=== PATIENT | male | born 1950 | race Caucasian/White ===

== ENCOUNTER 2017-08-20 13:37 | Observation (INO) | payer OTHER ==
--- OUTSIDE RECORDS SUMMARY | 2017-08-20 13:39 | XMS REPORT | Clinical Summary ---
:1950 Author Organization [facility] Address [address] [place] [id number] Care Team Providers Name Role Phone James Chow MD Primary Care Provider Unavailable Allergies No Known Allergies Current Medications Prescription Sig. Disp. Refills Start Date End Date Status dexlansoprazole (DEXILANT) Take 60 mg by Active 60 mg capsule mouth daily. HYDROcodone-acetaminophen Take 2 tablets by Active (NORCO 10-325) 10-325 mg mouth 4 (four) per tablet times a day. acetaminophen (TYLENOL) Take 500 mg by Active 500 MG tablet mouth daily as needed for mild pain. aspirin 325 MG tablet Take 325 mg by Active mouth daily as needed (pain). Active Problems Problem Noted Date Chest pain in adult 09/14/2015 Chest pain 09/14/2015 Social History Tobacco Use Types Packs/Day Years Used Date Heavy Tobacco Smoker Cigarettes 2 Alcohol Use Drinks/Week oz/Week Comments Yes 42 Cans of beer 25.2 pt states he drinks a 6 pack of beer a day Sex Assigned at Date Recorded Not on file Last Filed Vital Signs Not on file Plan of Treatment Health Maintenance Due Date Last Done Comments COLON CANCER SCREENING 1999 SHINGRIX VACCINE (#1) 1999 ZOSTER VACCINE 2009 PNEUMOCOCCAL POLYSACCHARIDE VACCINE AGE 65 AND OVER 2014 PNEUMOCOCCAL-13 2014 INFLUENZA VACCINE 10/17/2017 Implants Implanted Type Area Liquefier Device Expiration Model / Identifier Date Serial / Lot System Reveal Linq W/Monitors - [id number] - [id number] Cardiovascular Left: MED[employer] 07/30/2016 LINQSYS / Implanted: Qty: 1 on 09/22/2015 by Miley Gonsalez Jr., MD Implants Chest CARDIAC RHYTHM [id number] / Wall DISEASE MGMT Results Not on fileafter 08/19/2016 Insurance Payer Benefit Plan / Group Subscriber ID Type Phone Address [employer] O xxxxxxxx HMO MCR ADV MEDICARE MEDICARE PART A AND B xxxxxxxxxx Medicare [place], [place] Home: [address] [phone] [address]
[2017-08-20] MEDS ORDERED: PANTOPRAZOLE 40 MG INJ ONE (14:40)
[2017-08-20 14:41] LABS: Absolute Lymphocytes (CBC) 1.3 K/uL (0.7-4.9); Absolute Monocytes 0.8 K/uL (0.1-1.3); Absolute Neutrophil 8.8 K/uL (1.8-8.0); Basophils % 1.1 % (0-1.3); Eosinophils % 1.4 % (0-4.4); Lymphocytes % 11.3 % (15.3-44.8); MCH 30.6 pg (27.0-35.0); MCV 93.6 fL (80-100); MPV 9.1 fL (7.6-11.3); Monocytes % 7.5 % (3.3-12.3); RBC Red Blood Cell Count 3.95 M/uL (4.33-5.43)
[2017-08-20] MEDS ORDERED: NA CHLORIDE 0.9% 1,000 ML ONE (14:41)
--- NOTE | 2017-08-20 14:42 | RAD REPORT ---
EXAM DESCRIPTION: RAD - Chest Single View - 08/20/2017 2:38 pm CLINICAL HISTORY: Chest pain. COMPARISON: 10/29/2016 FINDINGS: Portable technique limits examination quality. The lungs are grossly clear. The heart is normal in size. No displaced fractures.Sternotomy wires not ed. IMPRESSION: No acute intrathoracic process suspected.
[2017-08-20 14:46] LABS: Protime INR 0.99
[2017-08-20 14:57] LABS: Potassium 3.8 mEq/L (3.6-5.0)
[2017-08-20 15:03] LABS: Albumin 3.5 g/dL (3.2-5.5); Bilirubin Direct 0.1 mg/dL (0-0.2); Bilirubin Total 0.4 mg/dL (0.3-1.2); Magnesium 1.5 mg/dL (1.8-2.5); Protein, Total 6.8 g/dL (6.0-8.3)
[2017-08-20 15:06] LABS: CKMB Creatine Kinase MB 3.2 ng/ml (0.3-4.0)
--- NOTE | 2017-08-20 15:38 | ER ---
Nurse's Notes [facility] Name: Bravo Lockett Age: 67 yrs Sex: Male : 1950 Arrival Date: 08/20/2017 Time: 13:51 Bed 26 Private MD: James Chow E Diagnosis: Abdominal tenderness;Gastrointestinal hemorrhage, unspecified;Hypomagnesemia Presentation: 08/20 13:52 Presenting complaint: EMS states: initial complaint was for chest pain, was ambulatory tl3 at scene when getting into the ambulance pain to chest was aggravated by seat belt, but greatest source of pain was in abdomen, black tarry stools for two weeks. Transition of care: patient was not received from another setting of care. Onset of symptoms was August 20, 2017. Risk Assessment: Do you want to hurt yourself or someone else? Patient reports no desire to harm self or others. Initial Sepsis Screen: Does the patient meet any 2 criteria? No. Patient's initial sepsis screen is negative. Does the patient have a suspected source of infection? No. Patient's initial sepsis screen is negative. Care prior to arrival: IV initiated. 20 GA, in the right antecubital area. 13:52 Method Of Arrival: EMS: [facility] tl3 13:52 Acuity: AURELIO 3 tl3 Historical: - Allergies: 13:56 NKDA; tl3 - Home Meds: 18:48 [place] 10-325 mg Oral tab [Active]; baclofen 10 mg Oral tab [Active]; tl3 losartan-hydrochlorothiazide 50-12.5 mg oral tab [Active]; meclizine 12.5 mg Oral tab [Active]; pantoprazole 40 mg oral TbEC [Active]; - PMHx: 18:48 CAD; COPD; Diverticulitis; GERD; Hypomagnesemia; Myocardial infarction; Hypertension; tl3 Vertigo; - Immunization history:: Adult Immunizations up to date. - Family history:: not pertinent. - Social history:: Smoking status: Patient uses tobacco products, smokes two packs cigarettes per day. - Ebola Screening: : Patient denies travel to an Ebola-affected area in the 21 days before illness onset. Screenin:15 Abuse screen: Denies threats or abuse. Nutritional screening: No deficits noted. tl3 Tuberculosis screening: No symptoms or risk factors identified. Fall Risk None identified. Assessment: 14:15 General: Appears uncomfortable, slender, well groomed, well developed, well nourished, tl3 Behavior is calm, cooperative, appropriate for age. Pain: Complains of pain in left lower quadrant and right lower quadrant and left upper quadrant and right upper quadrant. Neuro: Level of Consciousness is awake, alert, obeys commands. Cardiovascular: Reports chest pain, since today, reproducible. Respiratory: Airway is patent Respiratory effort is even, unlabored, Respiratory pattern is regular, symmetrical. GI: Abdomen is flat, Abdomen is tender to palpation Abd is rigid Guarding noted. : No signs and/or symptoms were reported regarding the genitourinary system. EENT: No signs and/or symptoms were reported regarding the EENT system. Derm: No signs and/or symptoms reported regarding the dermatologic system. Musculoskeletal: No signs and/or symptoms reported regarding the musculoskeletal system. 14:49 Reassessment: Patient appears in no apparent distress at this time. No changes from tl3 previously documented assessment. Patient and/or family updated on plan of care and expected duration. Pain level reassessed. Patient is alert, oriented x 3, equal unlabored respirations, skin warm/dry/pink. pt completed contrast, CT notified. 15:49 Reassessment: Patient appears in no apparent distress at this time. No changes from tl3 previously documented assessment. Patient and/or family updated on plan of care and expected duration. Pain level reassessed. Patient is alert, oriented x 3, equal unlabored respirations, skin warm/dry/pink. 17:55 Reassessment: Patient appears in no apparent distress at this time. No changes from tl3 previously documented assessment. Patient and/or family updated on plan of care and expected duration. Pain level reassessed. Patient is alert, oriented x 3, equal unlabored respirations, skin warm/dry/pink. 18:38 Reassessment: Patient appears in no apparent distress at this time. No changes from tl3 previously documented assessment. Patient and/or family updated on plan of care and expected duration. Pain level reassessed. Patient is alert, oriented x 3, equal unlabored respirations, skin warm/dry/pink. Dr Zacarias at bedside discussing POC with Pt. 18:39 GI: Bowel sounds. tl3 19:32 Reassessment: Patient appears in no apparent distress at this time. No changes from tl3 previously documented assessment. Patient and/or family updated on plan of care and expected duration. Pain level reassessed. Patient is alert, oriented x 3, equal unlabored respirations, skin warm/dry/pink. Vital Signs: 13:56 BP 128 / 104; Pulse 74; Resp 20; Pulse Ox 99% on R/A; tl3 14:15 BP 111 / 67; Pulse 75; Resp 20; Pulse Ox 100% ; tl3 14:49 BP 154 / 85; Pulse 58; Resp 18; Temp 98; Pulse Ox 100% ; tl3 15:49 BP 115 / 71; Pulse 48; Resp 16; Pulse Ox 99% ; tl3 17:55 BP 150 / 107; Pulse 63; Resp 16; Pulse Ox 100% ; tl3 18:38 BP 148 / 88; Pulse 88; Resp 16; Pulse Ox 97% ; tl3 19:32 BP 135 / 114; Pulse 58; Resp 16; Pulse Ox 100% ; tl3 ED Course: 13:51 Patient arrived in ED. tl3 13:51 James Chow MD is Private Physician. tl3 13:52 Etta Yates, NAM is Primary Nurse. tl3 13:55 Triage completed. tl3 13:58 Pedro Joseph MD is Attending Physician. rory 14:15 Patient has correct armband on for positive identification. Bed in low position. Call tl3 light in reach. Side rails up X2. monitoring and evaluation advisor on. Pulse ox on. NIBP on. 14:15 No provider procedures requiring assistance completed. Maintain EMS IV. Dressing tl3 intact. Good blood return noted. Site clean \T\ dry. Gauge \T\ site: 20g right AC. 14:22 XRAY Chest (1 view) In Process Unspecified. EDMS 14:23 X-ray completed. Portable x-ray completed in exam room. Patient tolerated procedure jb2 well. 14:42 EKG done, by electronics engineering technologist. reviewed by Pedro Joseph MD. at1 15:35 Karlene Zacarias MD is Hospitalizing Provider. rory 16:40 Patient moved to SC via wheelchair. nj 18:49 Arm band placed on. tl3 19:47 Patient admitted, IV remains in place. tl3 Administered Medications: 13:30 Drug: NS 0.9% 500 ml Route: IV; Rate: bolus; Site: left antecubital; Delivery: Primary tl3 tubing; 14:36 Follow up: IV Status: Completed infusion; IV Intake: 500ml tl3 14:36 Drug: NS 0.9% 1000 ml Route: IV; Rate: 125 ml/hr; Site: left antecubital; tl3 14:48 Drug: ProTONIX 40 mg Route: IVP; Infused Over: 2 mins; Site: right antecubital; tl3 15:51 Follow up: Response: No adverse reaction tl3 17:54 Follow up: Response: No adverse reaction tl3 15:57 Drug: Magnesium Sulfate 1 grams Route: IVPB; Infused Over: 1 hrs; Site: right tl3 antecubital; 17:54 Follow up: IV Status: Completed infusion; IV Intake: 100ml tl3 Point of Care Testing: Guaiac: 14:14 Stool Guaiac: Negative; Stool Hemoccult Control: Pass; rory Intake: 14:36 IV: 500ml; Total: 500ml. tl3 17:54 IV: 100ml; Total: 600ml. tl3 Outcome: 15:38 Decision to Hospitalize by Provider. rory 19:39 Admitted to Med/surg accompanied by tech, via wheelchair, with chart, Report called to tl3 Hilaria BROWNING 19:39 Condition: stable 19:39 Instructed on the need for admit. 19:48 Patient left the ED. tl3 Signatures: Dispatcher [employer] EDPedro Juarez MD MD cha Buechter, Jesse jb2 Lisa valentino, fire hazard inspector EKG Tat1 Colby Howell Tammy, RN RN tl3 Corrections: (The following items were deleted from the chart) 14:15 13:56 BP 128 / 104; Pulse 74bpm; Resp 20bpm; Pulse Ox 75%; tl3 tl3
--- NOTE | 2017-08-20 15:38 | EDPHYS ---
Physician Documentation [facility] Name: Bravo Lockett Age: 67 yrs Sex: Male : 1950 Arrival Date: 08/20/2017 Time: 13:51 Bed 26 Private MD: James Chow E ED Physician Pedro Joseph HPI: 08/20 14:12 This 67 yrs old Male presents to ER via EMS with complaints of Abdominal rory Problem, Bloody Stools. 14:12 The patient presents with abdominal pain. Onset: The symptoms/episode began/occurred 3 rory day(s) ago. The patient presents to the emergency department with rectal bleeding. Onset: The symptoms/episode began/occurred 3 day(s) ago. Abdominal pain: described as burning, constant, located in the right upper quadrant, left upper quadrant, right lower quadrant and left lower quadrant. Modifying factors: the symptoms are aggravated by movement, PO intake. Associated signs and symptoms: The patient has no apparent associated signs or symptoms. Historical: - Allergies: 13:56 NKDA; tl3 - Home Meds: 18:48 [place] 10-325 mg Oral tab [Active]; baclofen 10 mg Oral tab [Active]; tl3 losartan-hydrochlorothiazide 50-12.5 mg oral tab [Active]; meclizine 12.5 mg Oral tab [Active]; pantoprazole 40 mg oral TbEC [Active]; - PMHx: 18:48 CAD; COPD; Diverticulitis; GERD; Hypomagnesemia; Myocardial infarction; Hypertension; tl3 Vertigo; - Immunization history:: Adult Immunizations up to date. - Family history:: not pertinent. - Social history:: Smoking status: Patient uses tobacco products, smokes two packs cigarettes per day. - Ebola Screening: : Patient denies travel to an Ebola-affected area in the 21 days before illness onset. ROS: 14:12 Constitutional: Negative for fever, chills, and weight loss, Eyes: Negative for injury, rory pain, redness, and discharge, ENT: Negative for injury, pain, and discharge, Neck: Negative for injury, pain, and swelling, Cardiovascular: Negative for chest pain, palpitations, and edema, Respiratory: Negative for shortness of breath, cough, wheezing, and pleuritic chest pain, Back: Negative for injury and pain, : Negative for injury, bleeding, discharge, and swelling, MS/Extremity: Negative for injury and deformity, Skin: Negative for injury, rash, and discoloration, Neuro: Negative for headache, weakness, numbness, tingling, and seizure. 14:12 Abdomen/GI: Positive for abdominal pain. Exam: 14:14 Constitutional: This is a well developed, well nourished patient who is awake, alert, rory and in no acute distress. Head/Face: Normocephalic, atraumatic. Eyes: Pupils equal round and reactive to light, extra-ocular motions intact. Lids and lashes normal. Conjunctiva and sclera are non-icteric and not injected. Cornea within normal limits. Periorbital areas with no swelling, redness, or edema. ENT: Nares patent. No nasal discharge, no septal abnormalities noted. Tympanic membranes are normal and external auditory canals are clear. Oropharynx with no redness, swelling, or masses, exudates, or evidence of obstruction, uvula midline. Mucous membranes moist. Neck: Trachea midline, no thyromegaly or masses palpated, and no cervical lymphadenopathy. Supple, full range of motion without nuchal rigidity, or vertebral point tenderness. No Meningismus. Chest/axilla: Normal chest wall appearance and motion. Nontender with no deformity. No lesions are appreciated. Cardiovascular: Regular rate and rhythm with a normal S1 and S2. No gallops, murmurs, or rubs. Normal PMI, no JVD. No pulse deficits. Respiratory: Lungs have equal breath sounds bilaterally, clear to auscultation and percussion. No rales, rhonchi or wheezes noted. No increased work of breathing, no retractions or nasal flaring. Back: No spinal tenderness. No costovertebral tenderness. Full range of motion. Male : Normal genitalia with no discharge or lesions. Skin: Warm, dry with normal turgor. Normal color with no rashes, no lesions, and no evidence of cellulitis. MS/ Extremity: Pulses equal, no cyanosis. Neurovascular intact. Full, normal range of motion. Neuro: Awake and alert, GCS 15, oriented to person, place, time, and situation. Cranial nerves II-XII grossly intact. Motor strength 5/5 in all extremities. Sensory grossly intact. Cerebellar exam normal. Normal gait. Psych: Awake, alert, with orientation to person, place and time. Behavior, mood, and affect are within normal limits. Vital Signs: 13:56 BP 128 / 104; Pulse 74; Resp 20; Pulse Ox 99% on R/A; tl3 14:15 BP 111 / 67; Pulse 75; Resp 20; Pulse Ox 100% ; tl3 14:49 BP 154 / 85; Pulse 58; Resp 18; Temp 98; Pulse Ox 100% ; tl3 15:49 BP 115 / 71; Pulse 48; Resp 16; Pulse Ox 99% ; tl3 17:55 BP 150 / 107; Pulse 63; Resp 16; Pulse Ox 100% ; tl3 18:38 BP 148 / 88; Pulse 88; Resp 16; Pulse Ox 97% ; tl3 19:32 BP 135 / 114; Pulse 58; Resp 16; Pulse Ox 100% ; tl3 MDM: 13:58 Patient medically screened. [facility] 14:28 Data reviewed: vital signs, nurses notes, lab test result(s), EKG, radiologic studies, [facility] CT scan, plain films. 08/20 14:10 Order name: Occult Blood--Ancillary 08/20 14:11 Order name: Basic Metabolic Panel; Complete Time: 15:31 [facility] 08/20 14:12 Order name: BNP; Complete Time: 15:31 [facility] 08/20 14:12 Order name: CBC with Diff; Complete Time: 15:31 [facility] 08/20 14:12 Order name: Ckmb; Complete Time: 15:31 [facility] 08/20 14:12 Order name: CPK; Complete Time: 15:31 [facility] 08/20 14:12 Order name: LFT's; Complete Time: 15:31 [facility] 08/20 14:12 Order name: Magnesium; Complete Time: 15:31 [facility] 08/20 14:12 Order name: PT-INR; Complete Time: 15:31 [facility] 08/20 14:12 Order name: Ptt, Activated; Complete Time: 15:31 [facility] 08/20 14:12 Order name: Troponin (emerg Dept Use Only); Complete Time: 15:31 [facility] 08/20 14:12 Order name: Lipase; Complete Time: 15:31 [facility] 08/20 14:12 Order name: Type And Screen [facility] 08/20 14:12 Order name: Urine Culture [facility] 08/20 14:12 Order name: XRAY Chest (1 view); Complete Time: 15:31 [facility] 08/20 14:12 Order name: EKG; Complete Time: 14:12 [facility] 08/20 14:12 Order name: Cardiac monitoring; Complete Time: 14:48 [facility] 08/20 14:12 Order name: EKG - Nurse/Tech; Complete Time: 14:48 [facility] 08/20 14:12 Order name: IV Saline Lock; Complete Time: 14:49 [facility] 08/20 14:12 Order name: Labs collected and sent; Complete Time: 14:49 [facility] 08/20 14:12 Order name: O2 Per Protocol; Complete Time: 14:49 [facility] 08/20 14:12 Order name: O2 Sat Monitoring; Complete Time: 14:49 [facility] 08/20 14:12 Order name: CT Abd/Pelvis - W/Contrast [facility] 08/20 15:52 Order name: CONS Physician Consult [facility] 08/20 17:12 Order name: CT [facility] 08/20 18:22 Order name: Urine Dipstick--Ancillary (enter results) em1 Administered Medications: 13:30 Drug: NS 0.9% 500 ml Route: IV; Rate: bolus; Site: left antecubital; Delivery: Primary tl3 tubing; 14:36 Follow up: IV Status: Completed infusion; IV Intake: 500ml tl3 14:36 Drug: NS 0.9% 1000 ml Route: IV; Rate: 125 ml/hr; Site: left antecubital; tl3 14:48 Drug: ProTONIX 40 mg Route: IVP; Infused Over: 2 mins; Site: right antecubital; tl3 15:51 Follow up: Response: No adverse reaction tl3 17:54 Follow up: Response: No adverse reaction tl3 15:57 Drug: Magnesium Sulfate 1 grams Route: IVPB; Infused Over: 1 hrs; Site: right tl3 antecubital; 17:54 Follow up: IV Status: Completed infusion; IV Intake: 100ml tl3 Point of Care Testing: Guaiac: 14:14 Stool Guaiac: Negative; Stool Hemoccult Control: Pass; [facility] Disposition: 08/20/17 15:38 Hospitalization ordered by Karlene Zacarias for Observation. Preliminary diagnosis are Abdominal tenderness, Gastrointestinal hemorrhage, unspecified, Hypomagnesemia. - Bed requested for Telemetry/MedSurg (observation). - Status is Observation. tl3 - Condition is Stable. - Problem is new. - Symptoms have improved. UTI on Admission? No Signatures: Dispatcher [employer] EDNE Pedro Joseph MD MD cha Fitzgerald, Diane RN RN df Etta Yates RN RN tl3 Corrections: (The following items were deleted from the chart) 17:57 15:38 Hospitalization Ordered by Karlene Zacarias MD for Observation. Preliminary df diagnosis is Abdominal tenderness; Gastrointestinal hemorrhage, unspecified; Hypomagnesemia. Bed requested for Telemetry/MedSurg (observation). Status is Observation. Condition is Stable. Problem is new. Symptoms have improved. UTI on Admission? No. [facility] 19:48 17:57 08/20/2017 15:38 Hospitalization Ordered by Karlene Zacarias MD for Observation. tl3 Preliminary diagnosis is Abdominal tenderness; Gastrointestinal hemorrhage, unspecified; Hypomagnesemia. Bed requested for Telemetry/MedSurg (observation). Status is Observation. Condition is Stable. Problem is new. Symptoms have improved. UTI on Admission? No. df
[2017-08-20] MEDS ORDERED: ACETAMINOPHEN 500 MG TAB PO PRN (16:30)
[2017-08-20] MEDS ORDERED: ONDANSETRON 4 MG/2 ML VIAL IV PRN (16:30)
[2017-08-20] MEDS: NA CHLORIDE 0.9% 1,000 ML IV SCH ×2 (17:00→21:34)
--- NOTE | 2017-08-20 17:01 | EKG ---
Test Date: 2017-08-20 Test Time: 14:33:06 Account Maintenance Representative: NIKI MEASUREMENT RESULTS: Intervals: Rate: 66 DC: 162 QRSD: 100 QT: 384 QTc: 402 Norman: P: 63 DC: 162 QRS: 49 T: 61 INTERPRETIVE STATEMENTS: Normal sinus rhythm Normal ECG Compared to ECG 10/29/2016 13:39:45 Sinus bradycardia no longer present Electronically Signed On 08-20-17 17:00:10 CDT by Lars Ayala
--- NOTE | 2017-08-20 17:11 | RAD REPORT ---
EXAM DESCRIPTION: CT - Abdomen Pelvis W Contrast - 08/20/2017 4:51 pm CLINICAL HISTORY: Abdominal pain COMPARISON: CT study May 2016 TECHNIQUE: Biphasic, helical CT imaging of the abdomen and pelvis was performed following 100 ml non -ionic IV contrast. Oral contrast was given. All CT scans are performed using dose optimization technique as appropriate and may include automated exposure control or mA/KV adjustment according to patient size. FINDINGS: No suspicious findings in the lung bases. No pericardial effusion. The liver, spleen, and pancreas show no suspicious findings. Gallbladder and biliary tree are also wi thout suspicious finding. Symmetric renal function is seen with no hydronephrosis or suspicious renal mass. No pyelonephritis o r acute renal parenchymal process seen. Urinary bladder is only partially filled but grossly normal. Prostate gland and seminal vesicles are within normal limits for age. Lucas of the stomach are accentuated by limited contrast volume. Significant change from the prior st udy is not suspected. No dilation of the large or small bowel. An acute GI process is not seen. Oral contrast has reached the distal rectum. No free air, free fluid or inflammatory stranding. No hernia, mass or bulky lymphadenopathy. No adre nal abnormality. Prominent disc and bony degenerative changes are present. Postsurgical change noted in the lower lumb ar spine. Bony structures are not clearly different from May 2016. Dense vascular calcifications present. Common iliac stenoses are likely present. 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 There is dense calcification at the base of this vessel. IMPRESSION: No bowel obstruction, free air or surgically emergent finding. Numerous chronic changes are detailed in the body of the report none of which are clearly different f rom prior imaging.
--- NOTE | 2017-08-20 17:41 | P.HP ---
Certification for Inpatient Patient admitted to: Observation With expected LOS: <2 Midnights Patient will require the following post-hospital care: None Practitioner: I am a practitioner with admitting privileges, knowledge of patient current condition, hospital course, and medical plan of care. Services: Services provided to patient in accordance with Admission requirements found in Title 42 Section 412.3 of the Code of Federal Regulations Patient History Date of Service: 08/20/17 Primary Care Provider: Dr Chow Reason for admission: Dark Tarry Stool History of Present Illness: This is a 59-year-old male with significant past medical history of hypertension , hyperlipidemia, GERD, CAD, chronic alcoholism and tobacco abuse who presented to the ED complaining of having some dark tarry stools for about 2 weeks. Patient stated that he also had associated syncopal episode with that. Patient stated that he has been dizzy for over past 2 years however this episode of dark tarry stool made it worse. Patient stated that he has been seen by GI in the past and had an EGD and colonoscopy done and was told that he does have chronic gastritis and possible ulcer. Patient stated that the dark tarry stools happened at least 3 times at the house and here in the ER as well. Patient has no other complaints to offer and does not remember taking any recent NSAIDs or any other blood thinners other than his home medication. Allergies No Known Allergies Allergy (Unverified 10/31/16 07:47) Home Medications: Metoprolol Tartrate [Lopressor] 50 mg PO BID* #60 tablet 11/12/15 Albuterol Sulfate [Albuterol Sulfate 0.083% Neb Soln] 1 udaer NEB BID PRN Aspirin [Aspirin EC 81 MG] 2 tab PO DAILY #60 tablet. 05/31/16 Isosorbide Mononitrate [Isosorbide Mononitrate ER] 30 mg PO DAILY #30 tab.er.24h 05/31/16 Amlodipine [Norvasc*] 5 mg PO DAILY #30 tab 07/08/16 Hydrocodone 5/APAP 325 [[place] 5/325*] 1 tab PO Q6H PRN #20 tab 07/08/16 Promethazine HCl 25 mg PO Q6HR PRN #15 tablet 07/08/16 Alprazolam [Xanax*] 1 mg PO TID PRN 08/13/17 Baclofen [Lioresal*] 10 mg PO BIDP PRN 10/29/16 Hydrocodone/Acetaminophen [Hydrocodone-Acetamin 10-325 mg] 1 each PO TID Meclizine HCl 25 mg PO TID 10/29/16 Magnesium Oxide [Mag 0X*] 400 mg PO BID #60 tab 10/31/16 Naph,Mb-Db/K pH,Mbdb [Neutra-Phos Packet] 1 each PO DAILY #30 powd.pack Pantoprazole [Protonix Tab*] 40 mg PO DAILYAC #30 tab 10/31/16 Potassium Bicarbonate/Cit AC [Potassium 25 Meq Tablet Eff] 25 meq PO BID #60 tablet.eff 10/31/16 Thiamine HCl [Vitamin B-1*] 100 mg PO DAILY #30 10/31/16 Doxycycline Monohydrate 100 mg PO BID #28 capsule 11/01/16 Smz./Tmp. [Bactrim Ds 800 MG/160 MG*] 1 tab PO BID #28 tab 11/01/16 - Past Medical/Surgical History Diabetic: No -: triple bypass -: hernia repair and partial removal of colon -: CAD -: htn -: mi -: diverticulutis -: bradycardia -: gerd -: insomnia -: hernia repair -: partial removal of colon -: triple bypass -: back surgeries 9 total (fusions ) - Family History Father -: Heart disease, Hypertension Mother -: Lung disease, Seizures - Social History Alcohol use: Yes CD- Drugs: No Caffeine use: No Review of Systems General: As per HPI Physical Examination - Physical Exam General: Alert, In no apparent distress HEENT: Atraumatic Neck: Supple, 2+ carotid pulse no bruit, No LAD, Without JVD or thyroid abnormality Respiratory: Clear to auscultation bilaterally, Normal air movement Cardiovascular: Regular rate/rhythm, Normal S1 S2 Gastrointestinal: Normal bowel sounds, Soft and benign, Non-distended, No rebound, No guarding, Tenderness (Generalized Tenderness ) Musculoskeletal: No tenderness Integumentary: No rashes Neurological: Normal speech, Normal strength at 5/5 x4 extr, Normal tone Lymphatics: No axilla or inguinal lymphadenopathy - Studies Laboratory Data (last 24 hrs) 08/20/17 14:00: PT 11.7, INR 0.99, APTT 28.4 08/20/17 14:00: WBC 11.2 H, Hgb 12.1 L, Hct 37.0 L, Plt Count 317 08/20/17 14:00: B-Natriuretic Peptide 21 08/20/17 14:00: Sodium 135, Potassium 3.8, BUN 20, Creatinine 1.34 H, Glucose 110, Magnesium 1.5 L, Total Bilirubin 0.4, AST 23, ALT 18, Alkaline Phosphatase 74, Lipase 33 Assessment and Plan - Problems (Diagnosis) (1) GI bleed Current Visit: Yes Status: Acute Plan: H/o Alcohol abuse with Dark tarry stool now. -Hgb is 12.1. H/h q6h for now -Protonix, octreotide ggt for now -GI consulted. Awaiting reccs -F/U on Lab in AM -NPO for now. Qualifiers: GI bleed type/associated pathology: gastritis Gastritis type: alcoholic Qualified Code(s): K29.21 - Alcoholic gastritis with bleeding (2) Alcohol abuse Current Visit: Yes Status: Chronic Plan: Ativan PRN -Last Drink last night. 1 Beer. usually has 6 pack a day (3) Tobacco abuse Onset Date: 11/11/15 Current Visit: No Status: Chronic Plan: Smokes about 1 pack a day -Educated on Smoking cessation (4) CAD (coronary artery disease) of artery bypass graft Onset Date: 05/14/14 Current Visit: No Status: Chronic Plan: h/o Triple Bypass -Stable and restart home medication. Hold Blood Thinner in lieu of Recent GI bleed Qualifiers: [place] vs. transplanted heart: [place] heart Associated angina: with stable angina Qualified Code(s): I25.708 - Atherosclerosis of coronary artery bypass graft(s), unspecified, with other forms of angina pectoris (5) Gastroesophageal reflux disease Onset Date: 05/14/14 Current Visit: No Status: Chronic Plan: H/o of GERD with Esophagitis -Protonix and Octerotide ggt Qualifiers: Esophagitis presence: with esophagitis Qualified Code(s): K21.0 - Gastro- esophageal reflux disease with esophagitis (6) Hypertension Onset Date: 05/14/14 Current Visit: No Status: Chronic Qualifiers: Hypertension type: essential hypertension Qualified Code(s): I10 - Essential (primary) hypertension Discharge Plan: Home Plan to discharge in: 24 Hours - Advance Directives Does patient have a Living Will: No Does patient have a Durable POA for Healthcare: No - Code Status/Comfort Care Code Status Assessed: Yes Critical Care: No
[2017-08-20] MEDS: OCTREOTIDE 500 MCG in NA CHLORIDE 0.9% 500 ML IV SCH (18:00)
[2017-08-20] MEDS ORDERED: LORazepam 2 MG/ML VIAL IV PRN (18:23)
[2017-08-20 20:29] VITALS: BMI 21.1
[2017-08-20 23:02] LABS: Urine Blood NEGATIVE (NEG); Urine Glucose NEGATIVE (NEG); Urine Protein NEGATIVE (NEG); Urine Specific Gravity 1.015 (1.005-1.030); Urine pH 5.5 (5.0-7.0)
--- NOTE | 2017-08-21 01:23 | P.PN ---
Date of Service: 08/21/17 Patient complaining of pain and anxiety; normally takes daily xanax and norco from PCP, Dr. Chow. HR is low; history of bradyarrhythmia in the past. Patient hasn't had any issues recently. HR initially was 70's; after octreotide dropped to 48; came up to 60's but has decreased. Will hold and resume meds if HR improves.
[2017-08-21] MEDS ORDERED: LORazepam 2 MG/ML VIAL IV ONE (01:34)
[2017-08-21 02:14] LABS: Absolute Lymphocytes (CBC) 1.8 K/uL (0.7-4.9); Absolute Monocytes 0.8 K/uL (0.1-1.3); Absolute Neutrophil 6.8 K/uL (1.8-8.0); Eosinophils % 2.3 % (0-4.4); Hematocrit 36.3 % (39.6-49.0); Lymphocytes % 18.1 % (15.3-44.8); MCV 93.7 fL (80-100); Monocytes % 8.7 % (3.3-12.3); RBC Red Blood Cell Count 3.87 M/uL (4.33-5.43)
[2017-08-21] MEDS: NA CHLORIDE 0.9% 1,000 ML IV SCH ×3 (03:00→16:00)
[2017-08-21 03:40] LABS: Urine Appearance CLEAR; Urine Bilirubin NEGATIVE (NEG); Urine Blood NEGATIVE (NEG); Urine Color YELLOW; Urine Glucose NEGATIVE (NEG); Urine Protein NEGATIVE (NEG); Urine Specific Gravity >=1.030 (1.005-1.030); Urine Urobilinogen 0.2 mg/dL (0.2-1.0); Urine pH 5.5 (5.0-7.0)
[2017-08-21 03:54] LABS: Urine Microscopic Reflex NO UMIC
[2017-08-21] MEDS: OCTREOTIDE 500 MCG in NA CHLORIDE 0.9% 500 ML IV SCH (04:00)
[2017-08-21] MEDS: FENTANYL CITR 100 MCG/2 ML IV PRN ×2 (04:21→16:01)
[2017-08-21] MEDS: PANTOPRAZOLE INJ 80 MG in NA CHLORIDE 0.9% 250 ML IV SCH ×2 (05:00→16:10)
[2017-08-21 05:28] LABS: Absolute Lymphocytes (CBC) 1.5 K/uL (0.7-4.9); Absolute Monocytes 0.8 K/uL (0.1-1.3); Absolute Neutrophil 5.8 K/uL (1.8-8.0); Basophils % 1.2 % (0-1.3); Eosinophils % 2.6 % (0-4.4); Hematocrit 34.2 % (39.6-49.0); MCH 31.3 pg (27.0-35.0); MCV 93.6 fL (80-100); MPV 9.3 fL (7.6-11.3); RBC Red Blood Cell Count 3.65 M/uL (4.33-5.43)
[2017-08-21 05:38] LABS: Albumin 3.2 g/dL (3.2-5.5); Bilirubin Total 0.6 mg/dL (0.3-1.2); Magnesium 1.6 mg/dL (1.8-2.5); Phosphorus 3.1 mg/dL (2.5-4.3); Potassium 4.4 mEq/L (3.6-5.0); Protein, Total 6.3 g/dL (6.0-8.3)
[2017-08-21] MEDS ORDERED: MAGNESIUM SULFATE 1 gm IVPB 1 GM/100 ML BAG IV ONE (07:00)
[2017-08-21] MEDS ORDERED: PNEUMOCOCCAL VACCINE 0.5 ML IMVAC ONE (08:00)
[2017-08-21] MEDS: ALPRAZOLAM 1 MG TABLET PO PRN ×2 (08:50→16:00)
[2017-08-21] MEDS ORDERED: MECLIZINE HCL 12.5 MG TAB PO PRN (10:31)
[2017-08-21] MEDS ORDERED: ALPRAZOLAM 1 MG TABLET PO PRN (10:31)
--- NOTE | 2017-08-21 11:51 | P.PN ---
Subjective Date of Service: 08/21/17 Primary Care Provider: Dr Chow Chief Complaint: Dark Tarry Stool Patient seen and examined at bedside with RN. Case discussed with GI. Currently patient has no complaints to offer. Overnight patient had an episode of bradycardia after studying the octreotide. This is a chronic condition for patient octreotide drip on hold for right now. Currently has no complaints to offer and states that he is feeling better than before Review of Systems General: As per HPI Physical Examination - Vital Signs Temperature: 98.5 F Blood Pressure: 158/72 Pulse: 43 Respirations: 16 Pulse Ox (%): 99 - Physical Exam General: Alert, In no apparent distress, Oriented x3 HEENT: Atraumatic Neck: Supple, JVD not distended Respiratory: Clear to auscultation bilaterally, Normal air movement Cardiovascular: Regular rate/rhythm, Normal S1 S2 Gastrointestinal: Normal bowel sounds, No tenderness Musculoskeletal: No tenderness Integumentary: No rashes Neurological: Normal speech, Normal tone, Normal affect Lymphatics: No axilla or inguinal lymphadenopathy - Studies Laboratory Data (last 24 hrs) 08/20/17 14:00: PT 11.7, INR 0.99, APTT 28.4 08/20/17 14:00: WBC 11.2 H, Hgb 12.1 L, Hct 37.0 L, Plt Count 317 08/20/17 14:00: B-Natriuretic Peptide 21 08/20/17 14:00: Sodium 135, Potassium 3.8, BUN 20, Creatinine 1.34 H, Glucose 110, Magnesium 1.5 L, Total Bilirubin 0.4, AST 23, ALT 18, Alkaline Phosphatase 74, Lipase 33 Medications List Reviewed: Yes Assessment & Plan - Problems (Diagnosis) (1) GI bleed Onset Date: 08/21/17 Current Visit: Yes Status: Acute Plan: H/o Alcohol abuse with Dark tarry stool now. No episode overnight -Hgb is 11.4 this AM. H/h q6h for now -Protonix ggt for now -Stop octreotide ggt due to bradycardia -GI consulted. Awaiting reccs -F/U on Lab in AM -NPO for now. Qualifiers: GI bleed type/associated pathology: gastritis Gastritis type: alcoholic Qualified Code(s): K29.21 - Alcoholic gastritis with bleeding (2) Alcohol abuse Onset Date: 08/21/17 Current Visit: Yes Status: Chronic Plan: Ativan PRN -Last Drink last night. 1 Beer. usually has 6 pack a day (3) Tobacco abuse Onset Date: 11/11/15 Current Visit: No Status: Chronic Plan: Smokes about 1 pack a day -Educated on Smoking cessation (4) CAD (coronary artery disease) of artery bypass graft Onset Date: 05/14/14 Current Visit: No Status: Chronic Plan: h/o Triple Bypass -Stable and restart home medication. Hold Blood Thinner in lieu of Recent GI bleed Qualifiers: [place] vs. transplanted heart: [place] heart Associated angina: with stable angina Qualified Code(s): I25.708 - Atherosclerosis of coronary artery bypass graft(s), unspecified, with other forms of angina pectoris (5) Gastroesophageal reflux disease Onset Date: 05/14/14 Current Visit: No Status: Chronic Plan: H/o of GERD with Esophagitis -Protonix ggt Qualifiers: Esophagitis presence: with esophagitis Qualified Code(s): K21.0 - Gastro- esophageal reflux disease with esophagitis (6) Hypertension Onset Date: 05/14/14 Current Visit: No Status: Chronic Qualifiers: Hypertension type: essential hypertension Qualified Code(s): I10 - Essential (primary) hypertension Discharge Plan: Home Plan to discharge in: 24 Hours - Code Status/Comfort Care Code Status Assessed: Yes Critical Care: No
--- NOTE | 2017-08-21 13:43 | EKG ---
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
--- NOTE | 2017-08-21 19:37 | CON ---
Date of Consultation: 08/21/2017 A 67-year-old male, Dr. Zacarias, 218. Reason For Consultation: 1.Dark stool, abdominal pain, GERD. 2.Noncompliance. History Of Present Illness: Mr. Lockett is a 67-year-old gentleman with history of GERD, epigastric pain, and alcohol use. However, he ran out of the medications to which he has been noncompliant and he started having abdominal pain that started in the epigastrium, goes all the way down to midline i n the supraumbilical area. At the same time, he had chest pain. As a result, he called EMS and came to the hospital. The chest pain problem is gone. In addition to that, no shortness of breath. No cough or expectoration. No palpitation. However, he states that he has till abdominal pain and pass ing dark stool that is not tarry. Blood test shows no drop of hemoglobin and hematocrit whatsoever. Denies any nausea, vomiting. Past Medical History: History of peptic ulcer disease, gastritis, GERD,, hypertension, noncompliance . Past Surgical History: Not related to above. Family History: Denies any gastrointestinal malignancy in the family. Social History: Positive history of alcohol. Allergies: REVIEWED IN THE CHART. Medications: Reviewed in the chart. Review of Systems: General: No weight loss, weight gain. No fever or chills. GI: As elaborated above. Hepatologic: denies any history of jaundice, hepatitis, any other liver issue. Pulmonary: At this time, no shortness of breath, cough, or expectoration. Cardiac: No palpitation, heart murmur. No orthopnea or dyspnea. Genitourinary: No complaint. Neuropsychiatric: None. Extremity: no complaint. Neuroendocrine: None. Dermatologic: No chronic pruritus or other lesions. Physical Examination: General: Elderly male. At this time, no other acute distress noted. The patient is hungry. He wan ts to eat. Hemodynamic and respiratory profile within normal range. HEENT: Atraumatic, normocephalic. No icterus no pallor. Neck: Supple. No lymphadenopathy. Trachea is central in position. Chest: Clear to auscultation and percussion. CARDIOVASCULAR: normal S1, S2. No S3, no S4. ABDOMEN: Subjective tenderness towards epigastrium and upper abdomen. Sometimes even with hyperesth esia. Bowel sounds are present. No ascites. No succussion splash. Objectively, no tenderness foun d when the patient is distracted. No hepatomegaly no splenomegaly. Bowel sounds are excellent no as cites neurologic: Alert and oriented x3. Intact memory, mentation, and judgment. Appears to be garrett ewhat anxious. Upper and lower extremities are normal, symmetrical. Dermatologic: Normal. Diagnostic Data: Hemoglobin and hematocrit 12/37 and repeated is almost unchanged. Allergies: REVIEWED. Medications: Reviewed. Radiologic Data: Reviewed. Impression, Plan And Recommendations: Mr. Lockett is a 67-year-old gentleman, noncompliance epigast argelia pain, chronic GERD, and history of dark stool. However, this does not appear to be melena no lemuel p of hemoglobin and hematocrit noted. He is hungry. We will start his diet, keep him on PPI, do ser ial hemoglobin, hematocrit. Since there is no evidence of ongoing GI bleeding or objectively at this time, and physical examination is not bad at all. Further treatment could be done on an outpatient basis. I have encouraged the patient to not run out a PPI and continue to this treatment. One discharging give him a PPI prescription. He is suppos ed to follow up in office in 1-2 weeks. SIMEON/ADELA Voice ID: [id number] Report ID: [id number]
--- NOTE | 2017-08-21 21:55 | CON ---
Date of Consultation: 08/21/2017 The patient admitted on 08/20/2017. I saw the patient on 08/21/2017. Reason For Consultation: History of coronary artery disease, bradycardia, and GI bleed. History Of Present Illness: Mr. Lockett is a 67-year-old white male, very well known to me over the years. He has a history of coronary artery disease with recent negative cardiac workup from my offi ce including echocardiogram and stress test. He has a history of COPD, gastroesophageal reflux, hype rtension, vertigo, hypomagnesemia, and chronic dizziness. I have investigated extensively without fi nding any issues with his carotid, echo, and stress test. Holter monitors and event monitors showed bradycardia in the 40s that are intermittent, but heart rate is in the 80s and 70s. He has seen Dr. Melvin, I believe, for other workup. He came in with GI bleed. He was noted to be bradycardic whe n he came in. He had a heart rate of 70. Overnight, the telemetry showed the heart rate in the 40s. The patient is not having any dizzy spells or syncope. Denied any cardiac symptoms. Past Medical History: As stated earlier. Allergies: NONE. Review of Systems: Negative. Social History: Negative. Family History: Negative. Medications: Include Xanax, Hyzaar, and Protonix. Physical Examination: General: He appeared to be in no acute distress. Vital Signs: His heart rate was 60 when I saw him. Blood pressure was adequate. HEENT: Negative. Neck: Supple with no bruit. Chest: Clear. Cardiac: Revealed a regular rhythm and rate without murmurs, gallops, or rubs. Abdomen: Benign. Extremities: Revealed no clubbing, cyanosis, or edema. Diagnostic Data: Showed magnesium 1.5, creatinine is 1.43. Hemoglobin was 12. EKG showed sinus bra dycardia. Chest x-ray was negative. CT of the abdomen was negative. Impression And Plan: 1.Coronary artery disease status post stent many years ago with negative cardiac workup recently inc luding echo and stress test. 2.Chronic paroxysmal bradycardia with dizziness that is probably not related. Neurological workup i s pending. He is not on any beta-rajat. He is not symptomatic from the bradycardia now and I woul d just observe. Carotid Doppler in the recent past has been negative. 3.Chronic obstructive pulmonary disease. 4.Gastroesophageal reflux disease. 5.Hypertension. 6.Vertigo. 7.Hypomagnesemia. 8.Anxiety. All of this is stable and his magnesium supplemented and his GI consultation. He is mandie ared from a cardiac standpoint to undergo GI workup if needs be. I will follow him along as needed. TOMASA/ADELA Voice ID: [id number] Report ID: [id number]
[2017-08-22] MEDS: PANTOPRAZOLE INJ 80 MG in NA CHLORIDE 0.9% 250 ML IV SCH ×2 (00:01→11:18)
[2017-08-22] MEDS: NA CHLORIDE 0.9% 1,000 ML IV SCH ×2 (00:02→09:34)
[2017-08-22 00:35] VITALS: O2SAT 99
[2017-08-22] MEDS: FENTANYL CITR 100 MCG/2 ML IV PRN ×2 (00:52→10:05)
[2017-08-22] MEDS: ALPRAZOLAM 1 MG TABLET PO PRN ×2 (02:33→11:23)
[2017-08-22 06:30] LABS: Absolute Lymphocytes (CBC) 1.7 K/uL (0.7-4.9); Absolute Monocytes 0.7 K/uL (0.1-1.3); Absolute Neutrophil 5.5 K/uL (1.8-8.0); Eosinophils % 3.3 % (0-4.4); Hematocrit 31.3 % (39.6-49.0); Lymphocytes % 20.5 % (15.3-44.8); MCH 32.3 pg (27.0-35.0); MCV 93.3 fL (80-100); MPV 8.8 fL (7.6-11.3); Monocytes % 8.5 % (3.3-12.3); RBC Red Blood Cell Count 3.36 M/uL (4.33-5.43)
[2017-08-22] MEDS ORDERED: PANTOPRAZOLE 40MG TABLET PO SCH (06:30)
[2017-08-22 06:46] LABS: ALT/SGPT 13 IU/L (10-60); AST/SGOT 20 IU/L (10-42); Albumin 2.8 g/dL (3.2-5.5); Alkaline Phosphatase 61 IU/L (42-121); BUN Blood Urea Nitrogen 9 mg/dL (6-20); Bicarbonate 20 mEq/L (21-31); Bilirubin Total 0.6 mg/dL (0.3-1.2); Glucose Level 81 mg/dL (65-120); Magnesium 1.5 mg/dL (1.8-2.5); Phosphorus 2.3 mg/dL (2.5-4.3); Potassium 4.1 mEq/L (3.6-5.0); Protein, Total 5.4 g/dL (6.0-8.3); Sodium Level 138 mEq/L (135-145)
[2017-08-22] MEDS ORDERED: Magnesium Sulfate 2gm IVPB 2 G/50 ML BAG IV ONE (07:30)
[2017-08-22] MEDS ORDERED: POTASSIUM PHOS IN 0.9 % NACL 15 MMOL/250 ML BAG IV ONE (09:00)
--- NOTE | 2017-08-22 14:32 | P.DS ---
Admission Date: 08/20/17 Discharge Date: 08/22/17 Primary Care Provider: Dr Chow Disposition: ROUTINE DISCHARGE Discharge Condition: GOOD Reason for Admission: Dark Tarry Stool Consultations: GI - Problems (1) GI bleed Onset Date: 08/21/17 Status: Acute Qualifiers: GI bleed type/associated pathology: gastritis Gastritis type: alcoholic Qualified Code(s): K29.21 - Alcoholic gastritis with bleeding (2) Alcohol abuse Onset Date: 08/21/17 Status: Chronic (3) Tobacco abuse Onset Date: 11/11/15 Status: Chronic (4) CAD (coronary artery disease) of artery bypass graft Onset Date: 05/14/14 Status: Chronic Qualifiers: [place] vs. transplanted heart: [place] heart Associated angina: with stable angina Qualified Code(s): I25.708 - Atherosclerosis of coronary artery bypass graft(s), unspecified, with other forms of angina pectoris (5) Gastroesophageal reflux disease Onset Date: 05/14/14 Status: Chronic Qualifiers: Esophagitis presence: with esophagitis Qualified Code(s): K21.0 - Gastro- esophageal reflux disease with esophagitis (6) Hypertension Onset Date: 05/14/14 Status: Chronic Qualifiers: Hypertension type: essential hypertension Qualified Code(s): I10 - Essential (primary) hypertension Brief History of Present Illness: This is a 59-year-old male with significant past medical history of hypertension , hyperlipidemia, GERD, CAD, chronic alcoholism and tobacco abuse who presented to the ED complaining of having some dark tarry stools for about 2 weeks. Patient stated that he also had associated syncopal episode with that. Patient stated that he has been dizzy for over past 2 years however this episode of dark tarry stool made it worse. Patient stated that he has been seen by GI in the past and had an EGD and colonoscopy done and was told that he does have chronic gastritis and possible ulcer. Patient stated that the dark tarry stools happened at least 3 times at the house and here in the ER as well. Patient has no other complaints to offer and does not remember taking any recent NSAIDs or any other blood thinners other than his home medication. Hospital Course: Overall during the hospital stay patient remained stable The patient was initially admitted to the hospital for dark tarry stool that was going on for about 2-3 days. The patient was started on IV fluids here in the hospital along with Protonix and octreotide drip. Patient improved markedly well and his dark melanotic stool stomped. His hemoglobin remained stable of went from 12.1-10.8 most likely secondary to dilution. GI was consulted who recommended that patient be switched over to p.o. per tonic and discharged home to have outpatient and GI bleeding workup. Patient is to follow up with GI in 1-2 weeks and will be on Protonix 40 mg daily. Patient was also asked to make sure that he does not take any more aspirin or baclofen that he was taking for his back pain. Patient demonstrated understanding and thus was discharged home under stable condition. Patient was also asked to follow up with neurologist Dr. terrell calzada and making the appointment. Patient initially was complaining of having some dizziness which was most likely associated to his acute GI bleeding. Patient was again educated extensively on taking medications as prescribed and taking the Protonix 40 mg daily. Patient demonstrated understanding and thus was discharged home under stable condition Vital Signs/Physical Exam: Temp Pulse Resp BP Pulse Ox 98.4 F 67 18 135/71 100 08/22/17 08:00 08/22/17 08:00 08/22/17 08:00 08/22/17 08:00 08/22/17 08:00 General: Alert, In no apparent distress HEENT: Atraumatic, PERRLA, EOMI Neck: Supple, JVD not distended Respiratory: Clear to auscultation bilaterally, Normal air movement Cardiovascular: Regular rate/rhythm, Normal S1 S2 Gastrointestinal: Normal bowel sounds, No tenderness Musculoskeletal: No tenderness Integumentary: No rashes Neurological: Normal speech, Normal tone, Normal affect Lymphatics: No axilla or inguinal lymphadenopathy Laboratory Data at Discharge: WBC 8.3 K/uL (4.3-10.9) 08/22/17 05:25 Hgb 10.8 g/dL (13.6-17.9) L 08/22/17 05:25 Hct 31.3 % (39.6-49.0) L 08/22/17 05:25 Plt Count 282 K/uL (152-406) 08/22/17 05:25 PT 11.7 SECONDS (9.5-12.5) 08/20/17 14:00 INR 0.99 08/20/17 14:00 APTT 28.4 SECONDS (24.3-36.9) 08/20/17 14:00 Sodium 138 mEq/L (135-145) 08/22/17 05:25 Potassium 4.1 mEq/L (3.6-5.0) 08/22/17 05:25 BUN 9 mg/dL (6-20) 08/22/17 05:25 Creatinine 0.84 mg/dL (0.61-1.24) 08/22/17 05:25 Glucose 81 mg/dL (65-120) 08/22/17 05:25 Phosphorus 2.3 mg/dL (2.5-4.3) L 08/22/17 05:25 Magnesium 1.5 mg/dL (1.8-2.5) L 08/22/17 05:25 Total Bilirubin 0.6 mg/dL (0.3-1.2) 08/22/17 05:25 AST 20 IU/L (10-42) 08/22/17 05:25 ALT 13 IU/L (10-60) 08/22/17 05:25 Alkaline Phosphatase 61 IU/L (42-121) 08/22/17 05:25 B-Natriuretic Peptide 21 pg/ml (<=100) 08/20/17 14:00 Lipase 33 U/L (22-51) 08/20/17 14:00 Home Medications: ALPRAZolam [Xanax*] 1 mg PO TID PRN 10/29/16 Baclofen [Lioresal*] 10 mg PO BIDP PRN 10/29/16 Hydrocodone/Acetaminophen [Hydrocodone-Acetamin 10-325 mg] 1 each PO TID PRN Meclizine HCl 12.5 mg PO BID PRN 10/29/16 Losartan/Hydrochlorothiazide [Losartan-Hctz 100-12.5 mg Tab] 1 tab PO DAILY 07/04 Pantoprazole [Protonix Tab*] 40 mg PO DAILYAC #30 tab 08/22/17 New Medications: Pantoprazole [Protonix Tab*] 40 mg PO DAILYAC #30 tab Diet: Regular Activity: Ad julio Followup: Nelly Tang MD [ACTIVE - CAN ADMIT] - 1 Week
[2017-08-22 15:06] VITALS: BP 142/67; TEMP 98.6
== END 2017-08-22 14:00 | disposition home or self-care (01) ==
LOC: ER 13:37 → ERHOLD 15:39 → 2ND 19:23
PROVIDERS: ADMIT Family Medicine; ATTEND Family Medicine
DX: K29.21 Alcoholic gastritis with bleeding (principal); F10.10 Alcohol abuse, uncomplicated; I10 Essential (primary) hypertension; E78.5 Hyperlipidemia, unspecified; K21.9 Gastro-esophageal reflux disease without esophagitis; I25.10 Atherosclerotic heart disease of native coronary artery without angina pectoris; F17.210 Nicotine dependence, cigarettes, uncomplicated; E83.42 Hypomagnesemia; Z91.14 Patient's other noncompliance with medication regimen; F41.9 Anxiety disorder, unspecified; Z95.1 Presence of aortocoronary bypass graft
CPT/HCPCS: 36415; 71045; 74177; 80048; 80053; 80076; 81003; 82272; 82550; 82553; 83690; 83735; 83880; 84100; 84484; 85025; 85610; 85730; 86850; 86900; 86901; 87086; 87088; 93005; 96361; 96365; 96366; 96375; 99285; C9113; G0378; J2354; J3010; J3475; J7030; Q9967

== ENCOUNTER 2018-01-09 16:32 | Observation (INO) | payer OTHER ==
--- OUTSIDE RECORDS SUMMARY | 2018-01-09 16:34 | XMS REPORT | Clinical Summary ---
:1950 Author Organization [facility] Address [address] [place] [id number] Care Team Providers Name Role Phone James [...] pain in adult 09/14/2015 Chest pain 09/14/2015 Encounters Date Type Specialty Care Team Description 09/20/2017 Emergency Emergency Medicine after 01/08/2017 Social History Tobacco Use Types Packs/Day Years [...] INFLUENZA VACCINE 10/17/2017 Implants Implanted Type Area Chin Strap Maker Device Expiration Model / Identifier Date Serial / Lot System Reveal Linq W/Monitors - [id number] - [id number] Cardiovascular Left: [employer] 07/30/2016 LINQSYS / Implanted: Qty: 1 on 09/22/2015 by Miley Gonsalez Jr., MD Implants Chest CARDIAC RHYTHM [id number] / Wall DISEASE MGMT Results Not on fileafter 01/08/2017 Insurance Payer Benefit Plan / Group Subscriber ID Type Phone Address [employer] HMO xxxxxxxx HMO MCR ADV MEDICARE MEDICARE PART A AND B xxxxxxxxxx Medicare [place], [place] Home: [address] [phone] [id number]
[2018-01-09] MEDS ORDERED: NA CHLORIDE 0.9% 1,000 ML ONE ×2 (16:57→19:00)
--- NOTE | 2018-01-09 17:00 | RAD REPORT ---
EXAM DESCRIPTION: CT - Head Brain Wo Cont - 01/09/2018 4:52 pm CLINICAL HISTORY: Syncope COMPARISON: October 2016 TECHNIQUE: Computed axial tomography of the head was obtained. IV contrast was not requested. All CT scans are performed using dose optimization technique as appropriate and may include automated exposure control or mA/KV adjustment according to patient size. FINDINGS: An intracranial bleed is not seen . The ventricles are normal in caliber. No extra-axial fluid collection is noted. Mild low-density areas within periventricular, deep and sub cortical white matter likely represent ischemic changes secondary to small vessel disease. Fluid is present the right maxillary sinus IMPRESSION: No acute intracranial abnormality is seen. If patient's symptoms persist MRI of the bra in would be recommended. Fluid in the right maxillary sinus may indicate acute sinusitis
[2018-01-09 17:01] LABS: Absolute Lymphocytes (CBC) 1.4 K/uL (0.7-4.9); Absolute Monocytes 0.8 K/uL (0.1-1.3); Absolute Neutrophil 6.3 K/uL (1.8-8.0); Basophils % 1.2 % (0-1.3); Eosinophils % 1.7 % (0-4.4); Hematocrit 36.2 % (39.6-49.0); Lymphocytes % 16.2 % (15.3-44.8); MCH 33.7 pg (27.0-35.0); MCV 98.8 fL (80-100); MPV 7.4 fL (7.6-11.3); Monocytes % 9.3 % (3.3-12.3); RBC Red Blood Cell Count 3.67 M/uL (4.33-5.43)
[2018-01-09 17:02] LABS: Protime INR 0.95
--- NOTE | 2018-01-09 17:08 | RAD REPORT ---
EXAM DESCRIPTION: Rodrigo Single View01/09/2018 5:01 pm CLINICAL HISTORY: sob COMPARISON: August 2017 FINDINGS: The lungs appear clear of acute infiltrate. The heart is normal size. Postsurgical change s involve the chest IMPRESSION: No acute abnormalities displayed
[2018-01-09 17:22] LABS: ALT/SGPT 24 U/L (12-78); AST/SGOT 22 U/L (15-37); Albumin 3.7 g/dL (3.4-5.0); Alkaline Phosphatase 89 U/L (45-117); BUN Blood Urea Nitrogen 12 mg/dL (7-18); Bicarbonate 19 mmol/L (21-32); Bilirubin Direct < 0.1 mg/dL (0-0.2); Bilirubin Total 0.4 mg/dL (0.2-1.0); Glucose Level 115 mg/dL (74-106); Magnesium 1.7 mg/dL (1.8-2.4); NT PRO-BNP 414 pg/mL (<125); Potassium 4.2 mmol/L (3.5-5.1); Protein, Total 7.3 g/dL (6.4-8.2); Sodium Level 131 mmol/L (136-145); Troponin (Emerg Dept Use Only) < 0.02 ng/mL (0.0-0.045)
--- NOTE | 2018-01-09 19:16 | ER ---
Nurse's Notes [facility] Name: Bravo Lockett Age: 67 yrs Sex: Male : 1950 Arrival Date: 01/09/2018 Time: 16:34 Bed 3 Private MD: James Chow E Diagnosis: Hypotension;Bradycardia, unspecified;Syncope and collapse Presentation: 01/09 16:36 Presenting complaint: EMS states: pt was at the [employer] when he had a syncopal episode, EMS sg reports pt was aa\T\ox4 upon arrival, ambulatory to EMS stretcher, while in route pt had a syncopal episode, regained conciousness shortly after episode and was aa\T\ox4, pt admits taking oxy and xanax prior to arrival. Transition of care: patient was not received from another setting of care. Onset of symptoms was January 09, 2018. Risk Assessment: Do you want to hurt yourself or someone else? Patient reports no desire to harm self or others. Initial Sepsis Screen: Does the patient meet any 2 criteria? No. Patient's initial sepsis screen is negative. Does the patient have a suspected source of infection? No. Patient's initial sepsis screen is negative. Care prior to arrival: Glucose check: 86. 16:36 Method Of Arrival: EMS: [facility] sg 16:36 Acuity: AURELIO 2 sg Historical: - Allergies: 16:41 NKDA; sg - PMHx: 16:41 CAD; COPD; Diverticulitis; GERD; Hypertension; Hypomagnesemia; Myocardial infarction; sg Vertigo; - Immunization history:: Adult Immunizations unknown. - Social history:: Smoking status: Patient uses tobacco products, smokes one pack cigarettes per day. Patient uses alcohol, on a daily basis. oxycontin and xanax. - Ebola Screening: : Patient negative for fever greater than or equal to 101.5 degrees Fahrenheit, and additional compatible Ebola Virus Disease symptoms Patient denies exposure to infectious person Patient denies travel to an Ebola-affected area in the 21 days before illness onset. Screenin:40 Abuse screen: Denies threats or abuse. Denies injuries from another. Nutritional sg screening: No deficits noted. Tuberculosis screening: No symptoms or risk factors identified. Never had TB. Fall Risk None identified. Assessment: 16:42 General: Appears in no apparent distress. comfortable, slender, well developed, well sg nourished, Behavior is cooperative, appropriate for age, drowsy, Smells of alcohol, Cig smoke. Pain: Denies pain. Neuro: Level of Consciousness is awake, obeys commands, confused, Oriented to person, place, time, situation, Capsule Filler are equal bilaterally Moves all extremities. Gait is steady, Speech is slurred, Facial symmetry appears normal. Cardiovascular: Capillary refill is sluggish in bilateral fingers Chest pain is denied. Respiratory: Airway is patent Respiratory effort is even, unlabored, Respiratory pattern is regular, symmetrical, Breath sounds are coarse. GI: No deficits noted. Abdomen is flat, non-distended, Patient currently denies vomiting. : No signs and/or symptoms were reported regarding the genitourinary system. EENT: No signs and/or symptoms were reported regarding the EENT system. Derm: Skin is healthy with good turgor, is thin, Skin is dry, Skin is pale, Skin temperature is warm. Musculoskeletal: No signs and/or symptoms reported regarding the musculoskeletal system. 19:10 General: Appears in no apparent distress. comfortable, slender, well developed, well ao nourished, Behavior is calm, cooperative, appropriate for age, drowsy, Smells of alcohol. Pain: Denies pain. Neuro: Level of Consciousness is awake, obeys commands, confused, Oriented to person, place, time, situation, Capsule Filler are equal bilaterally Moves all extremities. Gait is steady, Speech is slurred, Facial symmetry appears normal. Cardiovascular: Capillary refill < 3 seconds is sluggish in bilateral Chest pain. Respiratory: Airway is patent Respiratory effort is even, unlabored, Respiratory pattern is regular, symmetrical, Breath sounds are coarse. GI: No deficits noted. Abdomen is flat, non-distended. : No signs and/or symptoms were reported regarding the genitourinary system. EENT: No signs and/or symptoms were reported regarding the EENT system. Derm: Skin is healthy with good turgor, is thin, Skin is dry, Skin is pale, Skin temperature is warm. Musculoskeletal: No signs and/or symptoms reported regarding the musculoskeletal system. 20:28 Reassessment: Patient appears in no apparent distress at this time. Patient and/or ao family updated on plan of care and expected duration. Pain level reassessed. Waiting on admission orders. 21:29 Reassessment: Patient appears in no apparent distress at this time. Patient and/or ao family updated on plan of care and expected duration. Pain level reassessed. Report called to NAM Howard. Vital Signs: 16:35 BP 85 / 56; Pulse 50; Resp 14; Temp 97.8; Pulse Ox 100% on R/A; Weight 74.84 kg; Pain sg 0/10; 17:46 BP 119 / 72; Pulse 42; Resp 17; Pulse Ox 99% on R/A; sv 18:53 BP 125 / 53 Supine; Pulse 66; sg 18:55 BP 137 / 78 Sitting; Pulse 68; sg 19:00 BP 110 / 76 Standing; Pulse 69; sg 19:10 BP 145 / 89; Pulse 70; Resp 20; Pulse Ox 98% on R/A; Pain 0/10; ao 20:28 BP 130 / 63; Pulse 42; Resp 16; Pulse Ox 100% on R/A; Pain 0/10; ao 21:13 BP 144 / 57; Pulse 41; Resp 16; Pulse Ox 100% ; Pain 0/10; ao ED Course: 16:34 Patient arrived in ED. sg 16:35 James Chow MD is Private Physician. sg 16:35 Arm band placed on. sg 16:35 Patient has correct armband on for positive identification. Placed in gown. Bed in low sv position. Call light in reach. bus driver/monitor on. Pulse ox on. NIBP on. 16:39 Triage completed. sg 16:40 Initial lab(s) drawn, by la, sent to lab. Inserted saline lock: 20 gauge in right sv forearm, using aseptic technique. Blood collected. Flushed right forearm with 5 ml normal saline. 16:43 EKG done, by process controls technician. reviewed by Jassi Arora MD. sm3 16:[address] sj 16:45 Steven Briseno PA is PHCP. jr8 16:45 Jassi Arora MD is Attending Physician. jr8 16:51 CT completed. Patient tolerated procedure well. nj 16:51 CT Head Brain wo Cont In Process Unspecified. EDMS 16:54 Darren Mcmillan, RN is Primary Nurse. sg 16:54 Patient moved to radiology. sj 17:01 XRAY Chest (1 view) In Process Unspecified. EDMS 18:06 Warm blanket given. Head of bed elevated. sv 19:14 Humza Worley MD is Hospitalizing Provider. jr8 21:34 No provider procedures requiring assistance completed. Patient admitted, IV remains in ao place. Administered Medications: 17:05 Drug: NS 0.9% 1000 ml Route: IV; Rate: 1000 ml; Site: right forearm; sg 21:30 Follow up: IV Status: Completed infusion; IV Intake: 1000ml ao Point of Care Testing: Blood Glucose: 16:39 Blood Glucose: 136 mg/dL; sg Ranges: Intake: 21:30 IV: 1000ml; Total: 1000ml. ao Outcome: 19:15 Decision to Hospitalize by Provider. jr8 21:35 Admitted to Med/surg accompanied by tech, room 228, with chart, Report called to pascale Howard RN 21:35 Condition: stable 21:35 Instructed on the need for admit. 21:36 Patient left the ED. ao Signatures: Dispatcher [employer] EDAlly Beltran RN RN sv Gay, Steven, RN RN sg Jones, Susan sj Roszak, Josh, PA PA jr8 Anthony Siddiqui RN RN ao Jordan, Renée Dukes 3 Corrections: (The following items were deleted from the chart) 16:55 16:51 Patient moved back from [place]. ema
--- NOTE | 2018-01-09 19:16 | EDPHYS ---
Physician Documentation [facility] Name: Bravo Lockett Age: 67 yrs Sex: Male : 1950 Arrival Date: 01/09/2018 Time: 16:34 Bed 3 Private MD: James Chow E ED Physician Jassi Arora HPI: 01/09 18:09 This 67 yrs old Male presents to ER via EMS with complaints of Blood Pressure jr8 Problem - Hypotension, Syncope. 18:33 Patient stated that he went to the [facility] to have a couple of beers with his friends. jr8 Stated that while he was there was about half way through his first beer and passed out. EMS called at that time. Stated that while in route to the hospital had another syncopal episode. BP's in the 70s systolic. Patient alert and oriented to person, place, time, event upon arrival. No acute distress. BP continues to be low . Severity of symptoms: At their worst the symptoms were moderate in the emergency department the symptoms are unchanged. The patient has not experienced similar symptoms in the past. The patient has not recently seen a physician. Historical: - Allergies: 16:41 NKDA; sg - PMHx: 16:41 CAD; COPD; Diverticulitis; GERD; Hypertension; Hypomagnesemia; Myocardial infarction; sg Vertigo; - Immunization history:: Adult Immunizations unknown. - Social history:: Smoking status: Patient uses tobacco products, smokes one pack cigarettes per day. Patient uses alcohol, on a daily basis. oxycontin and xanax. - Ebola Screening: : Patient negative for fever greater than or equal to 101.5 degrees Fahrenheit, and additional compatible Ebola Virus Disease symptoms Patient denies exposure to infectious person Patient denies travel to an Ebola-affected area in the 21 days before illness onset. ROS: 18:33 Eyes: Negative for injury, pain, redness, and discharge, ENT: Negative for injury, jr8 pain, and discharge, Neck: Negative for injury, pain, and swelling, Cardiovascular: Negative for chest pain, palpitations, and edema, Respiratory: Negative for shortness of breath, cough, wheezing, and pleuritic chest pain, Abdomen/GI: Negative for abdominal pain, nausea, vomiting, diarrhea, and constipation, Back: Negative for injury and pain, MS/Extremity: Negative for injury and deformity, Skin: Negative for injury, rash, and discoloration. 18:33 Neuro: Positive for syncope. Exam: 18:33 Eyes: Pupils equal round and reactive to light, extra-ocular motions intact. Lids and jr8 lashes normal. Conjunctiva and sclera are non-icteric and not injected. Cornea within normal limits. Periorbital areas with no swelling, redness, or edema. ENT: Nares patent. No nasal discharge, no septal abnormalities noted. Tympanic membranes are normal and external auditory canals are clear. Oropharynx with no redness, swelling, or masses, exudates, or evidence of obstruction, uvula midline. Mucous membranes moist. Neck: Trachea midline, no thyromegaly or masses palpated, and no cervical lymphadenopathy. Supple, full range of motion without nuchal rigidity, or vertebral point tenderness. No Meningismus. Cardiovascular: Regular rate and rhythm with a normal S1 and S2. No gallops, murmurs, or rubs. Normal PMI, no JVD. No pulse deficits. Respiratory: Lungs have equal breath sounds bilaterally, clear to auscultation and percussion. No rales, rhonchi or wheezes noted. No increased work of breathing, no retractions or nasal flaring. Abdomen/GI: Soft, non-tender, with normal bowel sounds. No distension or tympany. No guarding or rebound. No evidence of tenderness throughout. Back: No spinal tenderness. No costovertebral tenderness. Full range of motion. Skin: Warm, dry with normal turgor. Normal color with no rashes, no lesions, and no evidence of cellulitis. MS/ Extremity: Pulses equal, no cyanosis. Neurovascular intact. Full, normal range of motion. Neuro: Awake and alert, GCS 15, oriented to person, place, time, and situation. Cranial nerves II-XII grossly intact. Motor strength 5/5 in all extremities. Sensory grossly intact. Vital Signs: 16:35 BP 85 / 56; Pulse 50; Resp 14; Temp 97.8; Pulse Ox 100% on R/A; Weight 74.84 kg; Pain sg 0/10; 17:46 BP 119 / 72; Pulse 42; Resp 17; Pulse Ox 99% on R/A; sv 18:53 BP 125 / 53 Supine; Pulse 66; sg 18:55 BP 137 / 78 Sitting; Pulse 68; sg 19:00 BP 110 / 76 Standing; Pulse 69; sg 19:10 BP 145 / 89; Pulse 70; Resp 20; Pulse Ox 98% on R/A; Pain 0/10; ao 20:28 BP 130 / 63; Pulse 42; Resp 16; Pulse Ox 100% on R/A; Pain 0/10; ao 21:13 BP 144 / 57; Pulse 41; Resp 16; Pulse Ox 100% ; Pain 0/10; ao MDM: 16:46 Patient medically screened. jr8 19:11 Data reviewed: vital signs, nurses notes, lab test result(s), EKG, radiologic studies, jr8 plain films. Data interpreted: Pulse oximetry: on room air is 99 %. Interpretation: normal. Counseling: I had a detailed discussion with the patient and/or guardian regarding: the historical points, exam findings, and any diagnostic results supporting the discharge/admit diagnosis, lab results, radiology results, the need for further work-up and treatment in the hospital. ED course: Patient is having transient bradycardia where it will go do to 40-42bpm. During this patients blood pressure will become low. Patient with orthostatic changes as well . 19:14 Physician consultation: Humza Worley MD was called at 19:14, was contacted at 19:14, jr8 regarding admission, to the telemetry unit. consult, patient's condition, and will see patient. 01/09 16:41 Order name: Glucose, Ancillary Testing; Complete Time: 16:45 EDMS 01/09 16:42 Order name: Basic Metabolic Panel sv 01/09 16:42 Order name: CBC with Diff sv 01/09 16:42 Order name: LFT's sv 01/09 16:42 Order name: Magnesium; Complete Time: 18:03 sv 01/09 16:42 Order name: NT PRO-BNP; Complete Time: 18:03 sv 01/09 16:42 Order name: PT-INR; Complete Time: 17:17 sv 01/09 16:42 Order name: Troponin (emerg Dept Use Only); Complete Time: 18:03 sv 01/09 16:42 Order name: ETOH Level; Complete Time: 18:03 sv 01/09 16:42 Order name: Basic Metabolic Panel; Complete Time: 18:03 EDMS 01/09 16:42 Order name: CBC with Automated Diff; Complete Time: 17:17 EDMS 01/09 16:42 Order name: Liver (Hepatic) Function; Complete Time: 18:03 [facility] 01/09 16:45 Order name: [facility] 01/09 19:39 Order name: Troponin (emerg Dept Use Only); Complete Time: 21:27 [facility] 01/09 16:42 Order name: XRAY Chest (1 view); Complete Time: 17:17 01/09 16:42 Order name: EKG; Complete Time: 16:42 01/09 16:42 Order name: Cardiac monitoring; Complete Time: 17:06 01/09 16:42 Order name: EKG - Nurse/Tech; Complete Time: 17:06 01/09 16:42 Order name: IV Saline Lock; Complete Time: 17: 01/09 16:42 Order name: Labs collected and sent; Complete Time: 17:06 01/09 16:42 Order name: O2 Per Protocol; Complete Time: 17: 01/09 16:42 Order name: O2 Sat Monitoring; Complete Time: 17: 01/09 16:42 Order name: CT Head Brain wo Cont; Complete Time: 17:17 sv Administered Medications: 17:05 Drug: NS 0.9% 1000 ml Route: IV; Rate: 1000 ml; Site: right forearm; sg 21:30 Follow up: IV Status: Completed infusion; IV Intake: 1000ml ao Point of Care Testing: Blood Glucose: 16:39 Blood Glucose: 136 mg/dL; sg Ranges: Critical Glucose Levels:Adult <50 mg/dl or >400 mg/dl <40 mg/dl or >180 mg/dl Disposition: 01/09/18 19:15 Hospitalization ordered by Humza Worley for Inpatient Admission. Preliminary diagnosis are Hypotension, Bradycardia, unspecified, Syncope and collapse. - Bed requested for Telemetry/MedSurg (Inpatient). - Status is Inpatient Admission. ao - Condition is Fair. - Problem is new. - Symptoms have improved. UTI on Admission? No Signatures: Dispatcher [employer] EDAlly Beltran RN RN sv Gay, Steven, RN RN sg Steven Briseno PA PA 8 Anthony Siddiqui RN RN ao Thompson, Moriah ne Corrections: (The following items were deleted from the chart) 20:26 19:15 Hospitalization Ordered by Humza Worley MD for Inpatient Admission. Preliminary mt diagnosis is Hypotension; Bradycardia, unspecified; Syncope and collapse. Bed requested for Telemetry/MedSurg (Inpatient). Status is Inpatient Admission. Condition is Fair. Problem is new. Symptoms have improved. UTI on Admission? No. jr8 21:36 20:26 01/09/2018 19:15 Hospitalization Ordered by Humza Worley MD for Inpatient ao Admission. Preliminary diagnosis is Hypotension; Bradycardia, unspecified; Syncope and collapse. Bed requested for Telemetry/MedSurg (Inpatient). Status is Inpatient Admission. Condition is Fair. Problem is new. Symptoms have improved. UTI on Admission? No. mt
--- NOTE | 2018-01-09 22:01 | P.HP ---
Certification for Inpatient Patient admitted to: Inpatient With expected LOS: >2 Midnights Practitioner: I am a practitioner with admitting privileges, knowledge of patient current condition, hospital course, and medical plan of care. Services: Services provided to patient in accordance with Admission requirements found in Title 42 Section 412.3 of the Code of Federal Regulations Patient History Date of Service: 01/09/18 Reason for admission: Syncope History of Present Illness: Mr Lockett is a 67-year-old male with history of CAD status post CABG, hypertension, tobacco abuse, he smoked about 2 packs of cigarettes per day, he has currently a loop recorder implanted due to symptomatic bradycardia follow- up by Dr. Waldron in [place], who was looking at a friend's new car, having a beer , when suddenly he felt dizzy and passed out. He states that it is not the 1st time that happened, he denied any palpitation, skipping beats, chest pain or shortness of breath prior to the syncopal episode. No fever or chills. Lab work remarkable for normal WBC count, creatinine is 1.6 about his baseline, his BP went rate was very low 60s/40s, improving after fluid resuscitation. CT head without acute abnormality, EKG shows sinus bradycardia about 40 bpm. Allergies No Known Allergies Allergy (Verified 08/20/17 20:27) Home medications list reviewed: Yes Home Medications: ALPRAZolam [Xanax*] 1 mg PO TID PRN 10/29/16 Baclofen [Lioresal*] 10 mg PO BIDP PRN 10/29/16 Hydrocodone/Acetaminophen [Hydrocodone-Acetamin 10-325 mg] 1 each PO TID PRN Meclizine HCl 12.5 mg PO BID PRN 10/29/16 Losartan/Hydrochlorothiazide [Losartan-Hctz 100-12.5 mg Tab] 1 tab PO DAILY 07/04 Pantoprazole [Protonix Tab*] 40 mg PO DAILYAC #30 tab 08/22/17 - Past Medical/Surgical History Diabetic: No -: triple bypass -: hernia repair and partial removal of colon -: CAD -: htn -: mi -: diverticulutis -: bradycardia -: gerd -: insomnia -: hernia repair -: partial removal of colon -: triple bypass -: back surgeries 9 total (fusions ) - Family History Father -: Heart disease, Hypertension Mother -: Lung disease, Seizures - Social History Smoking Status: Current every day smoker Counseled patient to stop smoking for: less than 10 minutes Smoking therapy provided: Yes Patient receptive to therapy: No Alcohol use: Yes CD- Drugs: Yes Caffeine use: No Place of Residence: Home Review of Systems 10-point ROS is otherwise unremarkable Physical Examination - Physical Exam General: Alert, In no apparent distress HEENT: Atraumatic, PERRLA, Mucous membr. moist/pink, EOMI, Sclerae nonicteric Neck: Supple, 2+ carotid pulse no bruit, No LAD, Without JVD or thyroid abnormality Respiratory: Diminished, Other (Coarse bilateral) Cardiovascular: Regular rate/rhythm, Normal S1 S2 Gastrointestinal: Normal bowel sounds, No tenderness Musculoskeletal: No tenderness Integumentary: No rashes Neurological: Normal speech, Normal strength at 5/5 x4 extr, Normal tone, Normal affect Lymphatics: No axilla or inguinal lymphadenopathy - Studies Laboratory Data (last 24 hrs) 01/09/18 16:40: PT 11.2, INR 0.95 01/09/18 16:40: WBC 8.8 D, Hgb 12.4 L, Hct 36.2 L, Plt Count 334 01/09/18 16:40: Sodium 131 L, Potassium 4.2, BUN 12, Creatinine 1.60 H, Glucose 115 H, Magnesium 1.7 L, Total Bilirubin 0.4, AST 22, ALT 24, Alkaline Phosphatase 89 Assessment and Plan - Problems (Diagnosis) (1) Acute on chronic renal failure Current Visit: Yes Status: Acute Qualifiers: Acute renal failure type: unspecified Chronic kidney disease stage: stage 3 (moderate) Qualified Code(s): N17.9 - Acute kidney failure, unspecified; N18.3 - Chronic kidney disease, stage 3 (moderate) (2) Syncope Onset Date: 05/14/14 Current Visit: No Status: Acute Qualifiers: Syncope type: unspecified Qualified Code(s): R55 - Syncope and collapse (3) Alcohol abuse Onset Date: 08/21/17 Current Visit: No Status: Chronic (4) Bradycardia Onset Date: 10/30/16 Current Visit: No Status: Chronic (5) CAD (coronary artery disease) of artery bypass graft Onset Date: 05/14/14 Current Visit: No Status: Chronic Qualifiers: [place] vs. transplanted heart: [place] heart Associated angina: with stable angina Qualified Code(s): I25.708 - Atherosclerosis of coronary artery bypass graft(s), unspecified, with other forms of angina pectoris (6) Tobacco abuse Onset Date: 11/11/15 Current Visit: No Status: Chronic - Plan The patient will be admitted to the hospital due to a syncopal episode. EKG remarkable for sinus bradycardia, no ST-T abnormalities. The patient has had this episode in the past. Will order echocardiogram, consult Cardiology team for evaluation of recommendation. - Advance Directives Does patient have a Living Will: No Does patient have a Durable POA for Healthcare: No - Code Status/Comfort Care Code Status Assessed: Yes Code Status: Full Code
[2018-01-09] MEDS ORDERED: ONDANSETRON 4 MG/2 ML VIAL IV PRN (22:03)
[2018-01-09] MEDS: NA CHLORIDE 0.9% 1,000 ML IV SCH (22:19)
[2018-01-10 00:30] LABS: Urine Appearance CLEAR; Urine Bilirubin NEGATIVE (NEG); Urine Blood NEGATIVE (NEG); Urine Color YELLOW; Urine Glucose NEGATIVE (NEG); Urine Protein NEGATIVE (NEG); Urine Specific Gravity 1.015 (1.005-1.030); Urine Urobilinogen 0.2 mg/dL (0.2-1.0)
[2018-01-10 00:31] LABS: Urine Microscopic Reflex NO UMIC
[2018-01-10 00:42] LABS: Barbiturates NEGATIVE (NEGATIVE); Benzodiazepines POSITIVE (NEGATIVE); Cocaine NEGATIVE (NEGATIVE); METHAMPHETAM NEGATIVE (NEGATIVE); Methadone NEGATIVE (NEGATIVE); Opiates POSITIVE (NEGATIVE); Phencyclidine NEGATIVE (NEGATIVE); THC Cannibis NEGATIVE (NEGATIVE)
[2018-01-10] MEDS ORDERED: GLUCAGON 1 MG/VIAL IM PRN (04:11)
[2018-01-10] MEDS ORDERED: D50W 25 GM/50 ML SYRINGE IV PRN (04:11)
[2018-01-10] MEDS: NA CHLORIDE 0.9% 1,000 ML IV SCH (05:44)
[2018-01-10 06:04] LABS: Absolute Lymphocytes (CBC) 1.5 K/uL (0.7-4.9); Absolute Monocytes 0.6 K/uL (0.1-1.3); Absolute Neutrophil 3.9 K/uL (1.8-8.0); Basophils % 1.2 % (0-1.3); Eosinophils % 2.4 % (0-4.4); Hematocrit 32.7 % (39.6-49.0); MCH 32.6 pg (27.0-35.0); MCV 97.8 fL (80-100); MPV 8.2 fL (7.6-11.3); Monocytes % 9.6 % (3.3-12.3); RBC Red Blood Cell Count 3.34 M/uL (4.33-5.43)
[2018-01-10 06:15] LABS: Magnesium 1.7 mg/dL (1.8-2.4); Potassium 4.2 mmol/L (3.5-5.1)
[2018-01-10 06:25] VITALS: BMI 21.1
[2018-01-10] MEDS ORDERED: MAGNESIUM SULFATE 1 gm IVPB 1 GM/100 ML BAG IV ONE (06:30)
--- NOTE | 2018-01-10 07:12 | EKG ---
Test Date: 2018-01-09 Test Time: 19:29:37 Vacuum Spindle Sander: MEASUREMENT RESULTS: Intervals: Rate: 42 MA: 166 QRSD: 88 QT: 466 QTc: 389 [place]: P: 54 MA: 166 QRS: 44 T: 54 INTERPRETIVE STATEMENTS: Marked sinus bradycardia Abnormal ECG Compared to ECG 01/09/2018 16:42:06 No significant changes Electronically Signed On 01-10-18 07:12:05 CDT by Lars Ayala
--- NOTE | 2018-01-10 07:14 | EKG ---
Test Date: 2018-01-09 Test Time: 16:42:06 Recep: TRINH MEASUREMENT RESULTS: Intervals: Rate: 49 OK: 160 QRSD: 98 QT: 446 QTc: 402 [place]: P: 67 OK: 160 QRS: 61 T: 55 INTERPRETIVE STATEMENTS: Marked sinus bradycardia Abnormal ECG Compared to ECG 08/20/2017 23:24:22 No significant changes Electronically Signed On 01-10-18 07:13:12 CDT by Lars Ayala
[2018-01-10] MEDS: INSULIN -REGULAR HUMAN 50 UNIT/0.5 ML ML SQ SCH ×2 (07:30→11:30)
[2018-01-10] MEDS ORDERED: ENOXAPARIN 40 MG/0.4 ML SQ SCH (09:00)
[2018-01-10 09:06] VITALS: O2SAT 97
[2018-01-10 10:49] VITALS: BP 123/74; TEMP 98.5
--- NOTE | 2018-01-10 13:24 | P.SSS ---
Patient History Date of Service: 01/10/18 Reason for admission: Syncope History of Present Illness: Mr Lockett is a 67-year-old male with history of CAD status post CABG, hypertension, tobacco abuse, he smoked about 2 packs of cigarettes per day, he has currently a loop recorder implanted due to symptomatic bradycardia follow- up by Dr. Waldron in [place], who was looking at a friend's new car, having a beer , when suddenly he felt dizzy and passed out. He states that it is not the 1st time that happened, he denied any palpitation, skipping beats, chest pain or shortness of breath prior to the syncopal episode. No fever or chills. Lab work remarkable for normal WBC count, creatinine is 1.6 about his baseline, his BP went rate was very low 60s/40s, improving after fluid resuscitation. CT head without acute abnormality, EKG shows sinus bradycardia about 40 bpm. Allergies No Known Allergies Allergy (Verified 08/20/17 20:27) Home Medications: ALPRAZolam [Xanax*] 1 mg PO TID PRN 10/29/16 Baclofen [Lioresal*] 10 mg PO BIDP PRN 10/29/16 Meclizine HCl 12.5 mg PO BID PRN 10/29/16 Losartan/Hydrochlorothiazide [Losartan-Hctz 100-12.5 mg Tab] 1 tab PO DAILY 07/04 Pantoprazole [Protonix Tab*] 40 mg PO DAILYAC #30 tab 08/22/17 Aspirin 1 tab PO DAILY 01/09/18 Hydrocodone/Acetaminophen [[place] 10-325 Tablet] 1 tab PO QID PRN 01/09/18 - Past Medical/Surgical History Diabetic: No -: triple bypass -: hernia repair and partial removal of colon -: CAD -: htn -: mi -: diverticulutis -: bradycardia -: gerd -: insomnia -: hernia repair -: partial removal of colon -: triple bypass -: back surgeries 9 total (fusions ) - Family History Father -: Heart disease, Hypertension Mother -: Lung disease, Seizures - Social History Smoking Status: Current every day smoker Alcohol use: Yes CD- Drugs: Yes Caffeine use: No Place of Residence: Home Review of Systems As noted above Physical Examination - Vital Signs Temperature: 98.5 F Blood Pressure: 123/74 Pulse: 53 Respirations: 18 Pulse Ox (%): 98 - Physical Exam General: Alert, In no apparent distress HEENT: Atraumatic, PERRLA, Mucous membr. moist/pink, EOMI, Sclerae nonicteric Neck: Supple, 2+ carotid pulse no bruit, No LAD, Without JVD or thyroid abnormality Respiratory: Clear to auscultation bilaterally, Normal air movement Cardiovascular: Regular rate/rhythm, Normal S1 S2 Gastrointestinal: Normal bowel sounds, No tenderness Musculoskeletal: No tenderness Integumentary: No rashes Neurological: Normal gait, Normal speech, Normal strength at 5/5 x4 extr, Normal tone, Normal affect Lymphatics: No axilla or inguinal lymphadenopathy - Studies Laboratory Data (last 24 hrs) 01/09/18 16:40: PT 11.2, INR 0.95 01/09/18 16:40: WBC 8.8 D, Hgb 12.4 L, Hct 36.2 L, Plt Count 334 01/09/18 16:40: Sodium 131 L, Potassium 4.2, BUN 12, Creatinine 1.60 H, Glucose 115 H, Magnesium 1.7 L, Total Bilirubin 0.4, AST 22, ALT 24, Alkaline Phosphatase 89 Treatment Summary: The patient was admitted to the hospital due to a syncopal episode. EKG remarkable for sinus bradycardia, no ST-T abnormalities. The patient has had this episode in the past, he does have a loop recorder in place and follws up with a bank boss in [place]. His ECHO was not needed and cardiology cleared him for discharge. He will follow up with his bank boss in [place]. patient was counseled on smoking and alcohol cessation though he is not interested in cessation at this time. - Disposition Condition: GOOD Consultations: Dr. paredes, Cardiology Patient Discharge Instructions: Please follow up with your primary care doctor in 1 week. Please follow up with your bank boss in 1-2 weeks. Diet: AHA Activity: Fall precautions Time Spent Managing Pts Care (In Minutes): 45
--- NOTE | 2018-01-15 17:39 | CON ---
Date of Consultation: 01/10/2018 Reason For Consultation: Syncope and bradycardia. History Of Present Illness: Mr. Lockett is a 67-year-old white male. He was admitted to Dr. Angel' s service. He is very well known to me from previous office visits and admissions. He has had chron ic bradycardia, has had dizziness that has been investigated dramatically with carotid Doppler showin g a 50% stenosis in 2015. He had a normal echocardiogram in 2017. His EKG was normal in 2018. It i s normal today except for bradycardia. The patient has been dizzy with and without bradycardia in th e past. His symptoms even with a heart rate of 80s and 70s continued just like his heart rate in the 40s or 50s. It has been felt that this is a vertigo issue and has been taking meclizine and has act ually done very well for quite sometimes. He came in with a syncopal episode, was found to have posi tive opiates, positive benzodiazepine, positive alcohol on his urine and blood work. He had a creati nine of 1.6. His mag was 1.7. He had a negative chest x-ray. BNP was 414. CT of his head showed s inusitis. Denied any chest pain, nausea, vomiting, diaphoresis, PND, orthopnea, pedal edema, or palp itations. Past Medical History: Includes COPD; chronic dizziness; chronic bradycardia; CAD, status post circum flex stent approximately 15 years ago; gastroesophageal reflux disease; and hypomagnesemia. Allergies: NONE. Review of Systems: Negative. Social History: Positive for tobacco and alcohol. Family History: Positive for heart disease. Medications: At home include Xanax, aspirin, baclofen, losartan with hydrochlorothiazide, Protonix, and meclizine. Physical Examination: General: He was alert and oriented x3. Vital Signs: Stable. Heart rate was in the 50s. HEENT: Negative. Neck: Supple without any bruit, lymphadenopathy, JVD, or thyromegaly. Chest: Clear to auscultation and percussion. Cardiac: Revealed a regular rhythm and rate without any murmurs, gallops, or rubs. Abdomen: Benign. Extremities: Revealed no clubbing, cyanosis, or edema. Diagnostic Data: As stated earlier. Impression And Plan: 1.Syncope, secondary to orthostatic hypotension and dehydration. 2.Elevated creatinine, secondary to dehydration. 3.Chronic hypomagnesemia. 4.Possible sinusitis, maybe this caused him to be orthostatic. 5.Cerebrovascular disease with 50% stenosis in the carotid that needs to be followed up. 6.His other problems include chronic obstructive pulmonary disease, gastroesophageal reflux disease, and coronary artery disease, all of which seem to be stable at this point. I would hydrate him as this is being done. His creatinine is already improved to 1.2. I would javier nue his present regimen. Consider antibiotic for sinusitis. He needs an outpatient workup, and I wi ll consider an outpatient event monitor as well as a repeat carotid Doppler in the near future. TOMASA/ADELA Voice ID: [id number] Report ID: [id number]
== END 2018-01-10 14:09 | disposition home or self-care (01) ==
LOC: ER 16:32 → ERHOLD 19:57 → INTOOBSV 19:57 → 2ND 21:17
PROVIDERS: ADMIT Internal Medicine; ATTEND Internal Medicine
DX: R55 Syncope and collapse (principal); I25.10 Atherosclerotic heart disease of native coronary artery without angina pectoris; I10 Essential (primary) hypertension; F17.210 Nicotine dependence, cigarettes, uncomplicated; Z95.1 Presence of aortocoronary bypass graft
CPT/HCPCS: 36415; 70450; 71045; 80048 ×2; 80076; 80307 ×8; 80320; 81003; 82962 ×3; 83735 ×2; 83880; 84484 ×2; 85025 ×2; 85610; 93005 ×2; 94760 ×2; 96360; 96361; 99285; G0378 ×2; J1650; J3475; J7030 ×4

== ENCOUNTER 2018-04-11 09:31 | Inpatient (IN) | payer OTHER ==
--- OUTSIDE RECORDS SUMMARY | 2018-04-11 09:34 | XMS REPORT | Clinical Summary ---
:1950 Author Organization [facility] Address [address] [place] [id number] Care Team Providers Name Role Phone James Chow MD Primary Care Provider Unavailable Allergies No Known Allergies Medications Medication Sig Dispensed Refills Start Date End Date Status dexlansoprazole Take 60 mg by 0 Active (DEXILANT) 60 mg capsule mouth daily. HYDROcodone-acetaminophe Take 2 tablets 0 Active n (NORCO 10-325) 10-325 by mouth 4 mg per tablet (four) times a day. acetaminophen (TYLENOL) Take 500 mg by 0 Active 500 MG tablet mouth daily as needed for mild pain. aspirin 325 MG tablet Take 325 mg by 0 Active mouth daily as needed (pain). Active Problems Problem Noted Date Chest pain in adult 09/14/2015 Chest pain 09/14/2015 Encounters Date Type Specialty Care Team Description 09/20/2017 Emergency Emergency Medicine after 04/10/2017 Social History Tobacco Use Types Packs/Day Years Used Date Heavy Tobacco Smoker Cigarettes 2 Alcohol Use Drinks/Week oz/Week Comments Yes 42 Cans of beer 25.2 pt states he drinks a 6 pack of beer a day Sex Assigned at Date Recorded Not on file Job Start Date Occupation Industry Not on file Not on file Not on file Travel History Travel Start Travel End No recent travel history available. Last Filed Vital Signs Not on file Plan of Treatment Health Maintenance Due Date Last Done Comments COLON CANCER SCREENING 1999 SHINGLES VACCINES (1 of 2) 1999 PNEUMOCOCCAL POLYSACCHARIDE VACCINE AGE 65 AND OVER 2014 PNEUMOCOCCAL-13 2014 INFLUENZA VACCINE 10/17/2017 Implants Implanted Type Area Office Clerk Assistant Device Shelf Model / Identifier Expiration Serial / Date Lot System Reveal Linq W/Monitors - [id number] - [id number] Cardiovascular Left: [employer] 07/30/2016 LINQSYS / Implanted: Qty: 1 on 09/22/2015 by Miley Gonsalez Jr., MD Implants Chest CARDIAC RHYTHM [id number] / Wall DISEASE MGMT Results Not on fileafter 04/10/2017 Insurance Payer Benefit Plan / Group Subscriber ID Type Phone Address [employer] HMO xxxxxxxx HMO MCR ADV MEDICARE MEDICARE PART A AND B xxxxxxxxxx Medicare [place], [place] ([place]) [place] [address] Advance Directives Patient has advance care planning documents on file. For more information, please contact:Anirudh Otero[address] [place] [address]
[2018-04-11] MEDS ORDERED: NA CHLORIDE 0.9% 1,000 ML ONE ×3 (10:03→12:38)
[2018-04-11 10:06] LABS: Arterial Blood Carboxyhemoglob 1.6 % (0-1.5); Blood Gas Oxyhemoglobin 95.8 % (94-97); Blood O2 Saturation 98.6 % (92-98.5)
[2018-04-11 10:09] LABS: Absolute Lymphocytes (CBC) 1.1 K/uL (0.7-4.9); Absolute Monocytes 0.7 K/uL (0.1-1.3); Absolute Neutrophil 7.8 K/uL (1.8-8.0); Basophils % 0.5 % (0-1.3); Eosinophils % 0.5 % (0-4.4); MPV 7.6 fL (7.6-11.3); Monocytes % 7.7 % (3.3-12.3); RBC Red Blood Cell Count 4.16 M/uL (4.33-5.43)
[2018-04-11 10:13] LABS: Protime INR 0.95
[2018-04-11 10:32] LABS: ALT/SGPT 51 U/L (12-78); AST/SGOT 37 U/L (15-37); Alkaline Phosphatase 102 U/L (45-117); BUN Blood Urea Nitrogen 13 mg/dL (7-18); Bicarbonate 17 mmol/L (21-32); Bilirubin Direct 0.2 mg/dL (0-0.2); Bilirubin Total 0.5 mg/dL (0.2-1.0); CKMB Creatine Kinase MB 5.1 ng/mL (0.3-3.6); Creatine Phosphokinase 378 U/L (39-308); Glucose Level 175 mg/dL (74-106); Lipase 320 U/L (73-393); NT PRO-BNP 527 pg/mL (<125); Potassium 3.4 mmol/L (3.5-5.1); Protein, Total 7.9 g/dL (6.4-8.2); Sodium Level 122 mmol/L (136-145); Troponin (Emerg Dept Use Only) < 0.02 ng/mL (0.0-0.045)
[2018-04-11 10:34] LABS: Magnesium 1.3 mg/dL (1.8-2.4)
--- NOTE | 2018-04-11 10:43 | EKG ---
Test Date: 2018-04-11 Test Time: 09:46:10 Iphone Developer: EDVIN MEASUREMENT RESULTS: Intervals: Rate: 51 IN: 158 QRSD: 100 QT: 480 QTc: 442 [place]: P: 79 IN: 158 QRS: 75 T: 96 INTERPRETIVE STATEMENTS: Sinus bradycardia with occasional premature ventricular complexes Nonspecific ST and T wave abnormality Abnormal ECG Compared to ECG 01/09/2018 19:29:37 Ventricular premature complex(es) now present ST (T wave) deviation now present Electronically Signed On 04-11-18 10:42:40 CLINICAL APPLICATION MANAGER by Juan Nelson
--- NOTE | 2018-04-11 11:04 | RAD REPORT ---
EXAM DESCRIPTION: RAD - Chest Single View - 04/11/2018 10:52 am CLINICAL HISTORY: Unresponsive, shortness of breath, hypotension COMPARISON: December 2017 TECHNIQUE: AP portable chest image was obtained 1038 hour . FINDINGS: Is no mass, infiltrate or pulmonary edema pattern of the lung parenchyma. Heart and vascul ature are normal. No measurable pleural effusion and no pneumothorax. No acute bony abnormality seen. No acute aortic finding seen. Lower cervical fusion changes are present. Multiple monitor leads over lie the chest. IMPRESSION: No acute cardiopulmonary process.
--- NOTE | 2018-04-11 11:16 | ER ---
Nurse's Notes [facility] Name: Bravo Lockett Age: 68 yrs Sex: Male : 1950 Arrival Date: 04/11/2018 Time: 09:33 Bed 4 Private MD: Diagnosis: Hypothermia;Hypotension;Hypomagnesemia;Bradycardia, unspecified;Chronic kidney disease (CKD) Presentation: 04/11 09:33 Presenting complaint: EMS states: found unresponsive by roommate today. EMS reports aa5 only BP reading they were able to obtain was 70 systolic. Pt is A\\T\\O x 0 at this time, c/o leg pain. Transition of care: patient was not received from another setting of care. Onset of symptoms was April 11, 2018. Risk Assessment: Do you want to hurt yourself or someone else? Unable to obtain. Care prior to arrival: Glucose check: 108. 09:33 Acuity: AURELIO 2 aa5 09:33 Method Of Arrival: EMS: [facility] aa5 09:40 Initial Sepsis Screen: Does the patient meet any 2 criteria? RR > 20 per min. Altered aa5 Mental Status. Yes Does the patient have a suspected source of infection? Yes: If YES to both, name of provider notified: Steven GANN. Historical: - Allergies: 09:40 NKDA; aa5 - Home Meds: 09:40 baclofen 20 mg oral tab [Active]; Hoople 10-325 mg Oral tab [Active]; Aspirin Oral aa5 [Active]; Hyzaar Oral [Active]; Xanax Oral [Active]; meclizine 25 mg Oral tab [Active]; Protonix Oral [Active]; Vitamin B-6 Oral [Active]; Vitamin B-12 Oral [Active]; Glucosamine oral oral [Active]; Fish Oil oral oral [Active]; Magnesium Oxide Oral [Active]; - PMHx: 09:40 CAD; COPD; Diverticulitis; GERD; Hypertension; Hypomagnesemia; Myocardial infarction; aa5 Vertigo; - PSHx: 09:40 Unable to obtain; aa5 - Immunization history:: Adult Immunizations unknown. - Social history:: Smoking status: unknown. - Ebola Screening: : Unable to complete screening because. Assessment: 10:00 General: Appears in no apparent distress. slender, unkempt, Behavior is drowsy. Pain: ca1 Pain began Patient reports having pain "all over". Neuro: Level of Consciousness is awake, Oriented to none Pt unable to follow commands at this time. . Speech is normal. Cardiovascular: Heart tones S1 S2 present Capillary refill is > 3 seconds. Respiratory: Airway is patent Trachea midline Respiratory effort is even, unlabored, Respiratory pattern is regular, symmetrical, Breath sounds are clear bilaterally. 10:00 GI: Abdomen is flat, Bowel sounds present X 4 quads. : No signs and/or symptoms were ca1 reported regarding the genitourinary system. EENT: No signs and/or symptoms were reported regarding the EENT system. Derm: Skin is fragile, Skin is clammy, Skin is pale, Skin temperature is cool. Musculoskeletal: Circulation, motion, and sensation intact. 10:03 Reassessment: BP 60/51, SANJUANITA Harris at bedside to set up for central line placement. trey Kong RN at bedside to assist. 10:29 Reassessment: Bear hugger warming blanket placed per PA order on high setting aa5 temperature. . 10:35 Reassessment: X-ray at bedside, pt states "you are doing an x-ray?", pt currently A\\T\\O x aa5 person [address]. When asked if he is in pain, pt states "my stomach hurts". PA was notified. . 11:28 Reassessment: Pt back from CT scan . aa5 11:28 Reassessment: Pt resting with eyes closed, respirations even and unlabored, skin is aa5 pink/warm/dry. 12:00 Reassessment: Pt states feeling better, pt states "I am warm now". Pt c/o chronic back aa5 pain, pt states "I take Hydrocodone every day for my back". PA was notified. . Neuro: Level of Consciousness is awake, alert, obeys commands, Oriented to person, place, time, situation. 12:15 Reassessment: Lactate repeat drawn and sent to lab . aa5 12:15 Reassessment: Pt resting in bed with eyes closed, awakens easily to verbal stimuli. aa5 Respirations even and unlabored, skin is pink/warm/dry. 13:55 Reassessment: Patient is alert, oriented x 3, equal unlabored respirations, skin aa5 warm/dry/pink. 13:55 Reassessment: Pt reports his son took his belongings (black watch, wallet, and jeans). .aa5 Vital Signs: 09:33 BP 109 / 89; Pulse 53; Resp 20 S; aa5 09:40 BP 90 / 77; Pulse 62; Resp 22 S; Pulse Ox 97% on 2 lpm NC; aa5 09:48 BP 71 / 52; Pulse 52; Resp 22 S; Pulse Ox 97% on 2 lpm NC; aa5 09:55 BP 60 / 41; Pulse 52; Resp 26 S; Pulse Ox 96% on 2 lpm NC; aa5 10:02 BP 60 / 51; Pulse 59; Temp 97.7(R); Pulse Ox 90% on 4 lpm NC; Weight 61.23 kg (M); iw 10:08 BP 100 / 58; Pulse 74; Resp 26 S; Pulse Ox 97% on 2 lpm NC; aa5 10:12 aa5 10:25 BP 153 / 90; Pulse 85; Resp 22 S; Pulse Ox 100% on 2 lpm NC; aa5 10:29 Temp 95.4(R); aa5 10:30 BP 123 / 86; Pulse 85; Resp 22 S; Pulse Ox 100% on 2 lpm NC; aa5 10:45 BP 149 / 89; Pulse 89; Resp 20 S; Pulse Ox 100% on 2 lpm NC; aa5 11:00 aa5 11:31 BP 83 / 63; Pulse 101; Resp 18 S; Pulse Ox 98% on 2 lpm NC; aa5 11:36 BP 87 / 70; Pulse 102; Resp 18 S; Pulse Ox 97% on 2 lpm NC; aa5 11:41 BP 102 / 70; Pulse 87; Resp 18 S; Pulse Ox 99% on 2 lpm NC; aa5 11:46 BP 98 / 71; Pulse 81; Resp 20 S; Temp 98.0(O); Pulse Ox 98% on 2 lpm NC; aa5 12:00 BP 100 / 66; Pulse 83; Resp 20 S; Temp 98.4(O); Pulse Ox 99% on 2 lpm NC; aa5 12:10 BP 101 / 72; Pulse 80; Resp 20 S; Pulse Ox 98% on 2 lpm NC; aa5 12:20 BP 102 / 68; Pulse 78; Resp 20 S; Pulse Ox 98% on 2 lpm NC; aa5 12:30 BP 116 / 68; Pulse 82; Resp 18 S; Pulse Ox 98% on 2 lpm NC; aa5 12:40 BP 103 / 69; Pulse 76; Resp 18 S; Pulse Ox 97% on 2 lpm NC; aa5 12:50 BP 125 / 76; Pulse 74; Resp 22 S; Pulse Ox 100% on 2 lpm NC; aa5 13:00 BP 136 / 75; Pulse 80; Resp 18 S; Pulse Ox 100% on 2 lpm NC; aa5 13:10 BP 142 / 81; Pulse 77; Resp 18 S; Pulse Ox 99% on 2 lpm NC; aa5 13:20 BP 135 / 84; Pulse 75; Resp 18 S; Pulse Ox 100% on 2 lpm NC; aa5 13:30 BP 145 / 74; Pulse 73; Resp 18 S; Pulse Ox 100% on 2 lpm NC; aa5 10:12 Unable to obtain accurate BP readings at this time, pt noted to be shaking. PA at aa5 bedside completing central line placement at this time. Extra warm blankets applied. Will recheck rectal temperature after central line placement 10:25 Pt appears more comfortable at this time, mild shaking noted at this time. aa5 10:29 PA notified aa5 11:00 Unable to obtain accurate BP readings at this time, pt noted to be shaking. Pt states aa5 "I am cold". Pt awake and alert at this time A\\T\\O x 2. Will continue to attempt Vitals: 10:12 Cardiac Rhythm Assessment Sinus sheri. iw ED Course: 09:30 Initial lab(s) drawn, by ED staff. Inserted saline lock: 20 gauge in right EJ, using iw aseptic technique. Blood collected. IV inserted by SANJUANITA Harris. 09:33 Patient arrived in ED. aa5 09:34 Jassi Arora MD is Attending Physician. kdr 09:35 Triage completed. aa5 09:35 Arm band placed on. aa5 09:48 Steven Briseno PA is PHCP. jr8 10:00 Patient has correct armband on for positive identification. Placed in gown. Bed in low ca1 position. Call light in reach. Side rails up X2. groundwater monitoring technician on. Pulse ox on. NIBP on. Warm blanket given. 10:01 EKG done, by television production technician. reviewed by Steven GANN. at1 10:06 Radiology exam delayed due to BOYD ATTEMPT. jb2 10:11 Jaycee Mckeon, RN is Primary Nurse. ca1 10:13 Assisted provider with central line placement. Set up central line tray. Triple lumen aa5 line placed in right femoral. Line placed by Steven GANN Dressed with Tegaderm, Patient tolerated well. Central line placement from 1005 to 1013. 10:15 Boyd cath inserted, using sterile technique, 14 Fr., by me, balloon inflated, to aa5 gravity drainage, other coud Boyd used after 2 unsuccessful attempts with 18 Fr and 16 Fr. VO for Boyd placement received at 0940. No urine output noted at this time, PA notified, will continue to monitor. 10:45 X-ray completed. Portable x-ray completed in exam room. Patient tolerated procedure mh1 well. 10:53 XRAY Chest (1 view) In Process Unspecified. EDMS 11:14 Dahiana Vazquez MD is Hospitalizing Provider. jr8 11:20 CT Abd/Pelvis - Without Cont In Process Unspecified. EDMS 11:39 Urine collected: Boyd catheter specimen, joanne colored, Amount Returned: 40mL. dh3 13:55 Patient admitted, IV remains in place. aa5 Administered Medications: 09:50 Drug: NS 0.9% (30 ml/kg) 30 ml/kg Route: IV; Rate: bolus; Site: right jugular; iw 10:20 Follow up: NS bolus now infusing to right femoral aa5 11:28 Follow up: IV Status: Completed infusion; IV Intake: 2000ml aa5 11:28 Drug: Magnesium Sulfate 2 grams Route: IVPB; Infused Over: 2 hrs; Site: right femoral; aa5 12:00 Follow up: Response: No adverse reaction aa5 13:30 Follow up: IV Status: Completed infusion aa5 12:00 Drug: vancoMYCIN 1 grams Route: IVPB; Infused Over: 2 hrs; Site: right femoral; aa5 12:15 Follow up: Response: No adverse reaction aa5 13:50 Follow up: Response: No adverse reaction; IV Status: Infusion continued upon admission aa5 12:15 Drug: Cefepime 1 grams {Note: administered slow IVP per pharmacy protocol at this aa5 time.} Route: IVPB; Rate: 200 ml/hr; Infused Over: 30 mins; Site: right femoral; 12:30 Follow up: Response: No adverse reaction aa5 12:15 Drug: NS 0.9% 1000 ml Route: IV; Rate: 125 ml/hr; Site: right femoral; aa5 13:50 Follow up: IV Status: Infusion continued upon admission aa5 Intake: 11:28 IV: 2000ml; Total: 2000ml. aa5 Output: 12:30 Urine: 60ml (Boyd); Total: 60ml. aa5 Outcome: 11:15 Decision to Hospitalize by Provider. jr8 13:55 Patient left the ED. aa5 13:55 Admitted to ICU accompanied by nurse, accompanied by tech, via stretcher, room ICU 7, aa5 with oxygen, on monitor, with chart, Report called to NAM Anderson 13:55 Condition: stable 13:55 Instructed on the need for admit, Demonstrated understanding of instructions. Signatures: Dispatcher [employer] EDMS Jassi Arora MD MD [facility] Walt Patel 2 Debar Narayan 1 Elizabeth Campbell, RN RN Luann Nance RN RN aa Steven Briseno PA PA jr8 Lisa Krishnan, product development ecologist EKG [facility]1 Zara Raymundo 3 Jaycee Mckeon, RN RN ca1 Corrections: (The following items were deleted from the chart) 10:03 10:03 Reassessment: BP 60/51, SANJUANITA Harris at bedside to set up for central line placement iw 10:11 10:02 BP 60 / 51; Pulse 59bpm; Pulse Ox 90% 4 lpm Nasal Cannula; [facility] 10:45 10:13 Assisted provider with central line placement. Set up central line tray. Triple aa5 lumen line placed in right femoral. Line placed by Steven GANN Dressed with Tegaderm, Patient tolerated well. aa5 10:57 10:12 Unable to obtain accurate BP readings at this time, pt not to be shaking. PA at [facility] bedside completing central line placement at this time. Extra warm blankets applied. Will recheck rectal temperature after central line placement; aa5 12:16 10:00 Neuro: Level of Consciousness is awake, Oriented to person, Raspberry Checker are weak ca1 bilaterally Moves all extremities. Speech is normal, ca1 13:38 09:40 Initial Sepsis Screen: Does the patient meet any 2 criteria? RR > 20 per min. aa5 Altered Mental Status. Yes Does the patient have a suspected source of infection? No. Patient's initial sepsis screen is negative. aa5 14:07 14:00 Patient left the ED. iw aa5
--- NOTE | 2018-04-11 11:16 | EDPHYS ---
Physician Documentation [facility] Name: Bravo Lockett Age: 68 yrs Sex: Male : 1950 Arrival Date: 04/11/2018 Time: 09:33 Bed 4 Private MD: ED Physician Jassi Arora HPI: 04/11 11:22 This 68 yrs old Male presents to ER via EMS with complaints of Unresponsive. jr8 11:22 The patient's problem is reported as altered mental status. Onset: The symptoms/episode jr8 began/occurred at an unknown time. Duration: The episode is continuous. The symptoms are alleviated by nothing. The symptoms are aggravated by nothing. Severity of symptoms: At their worst the symptoms were moderate in the emergency department the symptoms are unchanged. It is unknown whether or not the patient has had similar symptoms in the past. It is unknown whether or not the patient has recently seen a physician. EMS called by friends after finding patient on the floor. Patient was minimally responsive per EMS. Alert to person only. Cool and hypotensive. Friends stated that he had not been feeling well the past couple of days. Historical: - Allergies: 09:40 NKDA; aa5 - Home Meds: 09:40 baclofen 20 mg oral tab [Active]; [place] 10-325 mg Oral tab [Active]; Aspirin Oral aa5 [Active]; Hyzaar Oral [Active]; Xanax Oral [Active]; meclizine 25 mg Oral tab [Active]; Protonix Oral [Active]; Vitamin B-6 Oral [Active]; Vitamin B-12 Oral [Active]; Glucosamine oral oral [Active]; Fish Oil oral oral [Active]; Magnesium Oxide Oral [Active]; - PMHx: 09:40 CAD; COPD; Diverticulitis; GERD; Hypertension; Hypomagnesemia; Myocardial infarction; aa5 Vertigo; - PSHx: 09:40 Unable to obtain; aa5 - Immunization history:: Adult Immunizations unknown. - Social history:: Smoking status: unknown. - Ebola Screening: : Unable to complete screening because. ROS: 11:22 Unable to obtain ROS due to altered mental status. jr8 Exam: 11:22 Eyes: Pupils equal round and reactive to light, extra-ocular motions intact. Lids and jr8 lashes normal. Conjunctiva and sclera are non-icteric and not injected. Cornea within normal limits. Periorbital areas with no swelling, redness, or edema. ENT: Nares patent. No nasal discharge, no septal abnormalities noted. Tympanic membranes are normal and external auditory canals are clear. Oropharynx with no redness, swelling, or masses, exudates, or evidence of obstruction, uvula midline. Mucous membranes moist. Neck: Trachea midline, no thyromegaly or masses palpated, and no cervical lymphadenopathy. Supple, full range of motion without nuchal rigidity Cardiovascular: Regular rate and rhythm with a normal S1 and S2. No gallops, murmurs, or rubs. Normal PMI, no JVD. No pulse deficits. Back: No spinal tenderness. No costovertebral tenderness. Full range of motion. 11:22 Respiratory: the patient does not display signs of respiratory distress, Respirations: tachypnea, Breath sounds: are clear throughout, no bronchial sounds, no decreased breath sounds, no rales, rhonchi, no stridor, no wheezing. 11:22 Abdomen/GI: Inspection: scar(s), are noted in the , Bowel sounds: active, all quadrants, Palpation: soft, in all quadrants, mild abdominal tenderness, in the abdomen diffusely, rebound tenderness, is not appreciated, voluntary guarding, is not appreciated, involuntary guarding, is not appreciated, no appreciated organomegaly, Indicators: McBurney's point is not tender, Hopson's sign is negative, Rovsing's sign is negative. 11:22 Skin: Appearance: Color: pale, Temperature: cold, Moisture: dry, mottled in appearance . 11:22 Neuro: Orientation: to person, Mentation: slow to respond, confused, Memory: unable to test, Cranial nerves: extraocular movements are intact, Speech is slowed, Tongue strength is normal, Cerebellar function: unable to test, Motor: moves all fours, Sensation: no obvious gross deficits, seizure activity, is not displayed by the patient, Abnormal movements: there are no abnormal movements. 11:28 CT study not indicated or reported. Reason for not performing CT: Patient coming around [facility] and is more oriented. No trauma noted Vital Signs: 09:33 BP 109 / 89; Pulse 53; Resp 20 S; aa5 09:40 BP 90 / 77; Pulse 62; Resp 22 S; Pulse Ox 97% on 2 lpm NC; aa5 09:48 BP 71 / 52; Pulse 52; Resp 22 S; Pulse Ox 97% on 2 lpm NC; aa5 09:55 BP 60 / 41; Pulse 52; Resp 26 S; Pulse Ox 96% on 2 lpm NC; aa5 10:02 BP 60 / 51; Pulse 59; Temp 97.7(R); Pulse Ox 90% on 4 lpm NC; Weight 61.23 kg (M); iw 10:08 BP 100 / 58; Pulse 74; Resp 26 S; Pulse Ox 97% on 2 lpm NC; aa5 10:12 aa5 10:25 BP 153 / 90; Pulse 85; Resp 22 S; Pulse Ox 100% on 2 lpm NC; aa5 10:29 Temp 95.4(R); aa5 10:30 BP 123 / 86; Pulse 85; Resp 22 S; Pulse Ox 100% on 2 lpm NC; aa5 10:45 BP 149 / 89; Pulse 89; Resp 20 S; Pulse Ox 100% on 2 lpm NC; aa5 11:00 aa5 11:31 BP 83 / 63; Pulse 101; Resp 18 S; Pulse Ox 98% on 2 lpm NC; aa5 11:36 BP 87 / 70; Pulse 102; Resp 18 S; Pulse Ox 97% on 2 lpm NC; aa5 11:41 BP 102 / 70; Pulse 87; Resp 18 S; Pulse Ox 99% on 2 lpm NC; aa5 11:46 BP 98 / 71; Pulse 81; Resp 20 S; Temp 98.0(O); Pulse Ox 98% on 2 lpm NC; aa5 12:00 BP 100 / 66; Pulse 83; Resp 20 S; Temp 98.4(O); Pulse Ox 99% on 2 lpm NC; aa5 12:10 BP 101 / 72; Pulse 80; Resp 20 S; Pulse Ox 98% on 2 lpm NC; aa5 12:20 BP 102 / 68; Pulse 78; Resp 20 S; Pulse Ox 98% on 2 lpm NC; aa5 12:30 BP 116 / 68; Pulse 82; Resp 18 S; Pulse Ox 98% on 2 lpm NC; aa5 12:40 BP 103 / 69; Pulse 76; Resp 18 S; Pulse Ox 97% on 2 lpm NC; aa5 12:50 BP 125 / 76; Pulse 74; Resp 22 S; Pulse Ox 100% on 2 lpm NC; aa5 13:00 BP 136 / 75; Pulse 80; Resp 18 S; Pulse Ox 100% on 2 lpm NC; aa5 13:10 BP 142 / 81; Pulse 77; Resp 18 S; Pulse Ox 99% on 2 lpm NC; aa5 13:20 BP 135 / 84; Pulse 75; Resp 18 S; Pulse Ox 100% on 2 lpm NC; aa5 13:30 BP 145 / 74; Pulse 73; Resp 18 S; Pulse Ox 100% on 2 lpm NC; aa5 10:12 Unable to obtain accurate BP readings at this time, pt noted to be shaking. PA at [facility] bedside completing central line placement at this time. Extra warm blankets applied. Will recheck rectal temperature after central line placement 10:25 Pt appears more comfortable at this time, mild shaking noted at this time. aa5 10:29 PA notified aa5 11:00 Unable to obtain accurate BP readings at this time, pt noted to be shaking. Pt states aa5 "I am cold". Pt awake and alert at this time A\\T\\O x 2. Will continue to attempt Procedures: 14:18 Central Line: the site was prepped with Betadine, in sterile fashion, a triple lumen jr8 catheter was inserted, in the right femoral vein, in 1 attempts. placement was verified, by blood return, the site was dressed with 4X4s, Tegaderm, foam tape, using sterile technique, the patient tolerated the procedure, well. MDM: 09:48 Patient medically screened. [facility] 11:11 Data reviewed: vital signs, nurses notes, lab test result(s), EKG, radiologic studies, jr8 CT scan, plain films, and as a result, I will admit patient. Data interpreted: Pulse oximetry: on room air is 100 %. Interpretation: normal. Counseling: I had a detailed discussion with the patient and/or guardian regarding: the historical points, exam findings, and any diagnostic results supporting the discharge/admit diagnosis, lab results, radiology results, the need for further work-up and treatment in the hospital. Physician consultation: Dahiana Vazquez MD was called at 11:11, was contacted at 11:11, regarding admission, to the ICU, consult, patient's condition, and will see patient in ED. 14:17 ED course: Discussed case with family and need for admission to hospital. Family is jr8 good with this . 04/11 09:43 Order name: Glucose, Ancillary Testing; Complete Time: 09:48 EDMS 04/11 09:46 Order name: Basic Metabolic Panel; Complete Time: 10:43 iw 04/11 09:46 Order name: CBC with Diff; Complete Time: 10: iw 04/11 09:46 Order name: LFT's; Complete Time: 10:43 04/11 09:46 Order name: Magnesium; Complete Time: 10:43 04/11 09:46 Order name: NT PRO-BNP; Complete Time: 10: iw 04/11 09:46 Order name: PT-INR; Complete Time: 10:04/11 09:46 Order name: Troponin (emerg Dept Use Only); Complete Time: 10:43 04/11 09:46 Order name: Blood Culture Adult (2) 04/11 09:46 Order name: Ckmb; Complete Time: 10:43 04/11 09:46 Order name: CPK; Complete Time: 10:04/11 09:46 Order name: Lactate; Complete Time: 10:04/11 09:46 Order name: Lipase; Complete Time: 10:43 04/11 09:46 Order name: Procalcitonin; Complete Time: 11:04/11 09:46 Order name: XRAY Chest (1 view); Complete Time: 11:19 04/11 09:46 Order name: EKG; Complete Time: 09:47 04/11 09:46 Order name: Cardiac monitoring; Complete Time: 10:12 04/11 09:46 Order name: Ptt, Activated; Complete Time: 10:04/11 09:46 Order name: Urine Microscopic Only; Complete Time: 12:24 04/11 09:47 Order name: UDS; Complete Time: 12:04/11 09:48 Order name: Tylenol Level; Complete Time: 10:43 04/11 10:03 Order name: ABG; Complete Time: 10: eb 04/11 10:48 Order name: CT Abd/Pelvis - Without Cont; Complete Time: 11:46 04/11 11:44 Order name: Urine Dipstick--Ancillary (enter results) eb 04/11 13:18 Order name: Lactate Sepsis 2 HR Follow-up; Complete Time: 13:47 EDMS 04/11 09:46 Order name: EKG - Nurse/Tech; Complete Time: 10:12 iw 04/11 09:46 Order name: IV Saline Lock; Complete Time: 10:12 iw 04/11 09:46 Order name: Labs collected and sent; Complete Time: 10:12 iw 04/11 09:46 Order name: O2 Per Protocol; Complete Time: 10:12 iw 04/11 09:46 Order name: O2 Sat Monitoring; Complete Time: 10:12 iw 04/11 09:46 Order name: Accucheck; Complete Time: 10:12 iw 04/11 09:46 Order name: IV Saline Lock - Large Bore; Complete Time: 10:12 iw 04/11 09:46 Order name: Urine Dipstick-Ancillary (obtain specimen); Complete Time: 11:44 iw 04/11 10:29 Order name: Misc. Order: Ganga Huger; Complete Time: 10:39 jr8 Administered Medications: 09:50 Drug: NS 0.9% (30 ml/kg) 30 ml/kg Route: IV; Rate: bolus; Site: right jugular; iw 10:20 Follow up: NS bolus now infusing to right femoral aa5 11:28 Follow up: IV Status: Completed infusion; IV Intake: 2000ml aa5 11:28 Drug: Magnesium Sulfate 2 grams Route: IVPB; Infused Over: 2 hrs; Site: right femoral; aa5 12:00 Follow up: Response: No adverse reaction aa5 13:30 Follow up: IV Status: Completed infusion aa5 12:00 Drug: vancoMYCIN 1 grams Route: IVPB; Infused Over: 2 hrs; Site: right femoral; aa5 12:15 Follow up: Response: No adverse reaction aa5 13:50 Follow up: Response: No adverse reaction; IV Status: Infusion continued upon admission aa5 12:15 Drug: Cefepime 1 grams {Note: administered slow IVP per pharmacy protocol at this aa5 time.} Route: IVPB; Rate: 200 ml/hr; Infused Over: 30 mins; Site: right femoral; 12:30 Follow up: Response: No adverse reaction aa5 12:15 Drug: NS 0.9% 1000 ml Route: IV; Rate: 125 ml/hr; Site: right femoral; aa5 13:50 Follow up: IV Status: Infusion continued upon admission aa5 Disposition: 04/11/18 11:15 Hospitalization ordered by Dahiana Vazquez for Inpatient Admission. Preliminary diagnosis are Hypothermia, Hypotension, Hypomagnesemia, Bradycardia, unspecified, Chronic kidney disease (CKD). - Bed requested for Intensive Care Unit. - Status is Inpatient Admission. iw - Condition is Fair. - Problem is new. - Symptoms have improved. UTI on Admission? No Critical care time excluding procedures: 14:17 Critical care time: Bedside Care: 20 minutes, Consultation: 10 minutes, Family jr8 Intervention: 5 minutes. Total time: 35 minutes Addendum: 04/18/2018 08:53 Co-signature as Attending Physician, Jassi Arora MD I agree with the assessment and k dr plan of care. Signatures: Dispatcher [employer] EDMS Jassi Arora MD MD [facility] Elizabeth Campbell RN RN Luann Nance RN RN aa5 Steven Briseno PA PA jr8 Shelby Hoff Corrections: (The following items were deleted from the chart) 04/11 11:16 11:15 Hospitalization Ordered by Dahiana Vazquez MD for Inpatient Admission. Preliminary jr8 diagnosis is Hypothermia; Hypotension; Hypomagnesemia; Bradycardia, unspecified. Bed requested for Intensive Care Unit. Status is Inpatient Admission. Condition is Fair. Problem is new. Symptoms have improved. UTI on Admission? No. jr8 12:11 11:16 04/11/2018 11:15 Hospitalization Ordered by Dahiana Vazquez MD for Inpatient eb Admission. Preliminary diagnosis is Hypothermia; Hypotension; Hypomagnesemia; Bradycardia, unspecified; Chronic kidney disease (CKD). Bed requested for Intensive Care Unit. Status is Inpatient Admission. Condition is Fair. Problem is new. Symptoms have improved. UTI on Admission? No. jr8 14:00 12:11 04/11/2018 11:15 Hospitalization Ordered by Dahiana Vazquez MD for Inpatient iw Admission. Preliminary diagnosis is Hypothermia; Hypotension; Hypomagnesemia; Bradycardia, unspecified; Chronic kidney disease (CKD). Bed requested for Intensive Care Unit. Status is Inpatient Admission. Condition is Fair. Problem is new. Symptoms have improved. UTI on Admission? No. eb
[2018-04-11] MEDS ORDERED: Magnesium Sulfate 2gm IVPB 2 G/50 ML BAG IV ONE (11:24)
[2018-04-11] MEDS ORDERED: VANCOMYCIN 1 GM/250 ML BAG ONE (11:24)
[2018-04-11] MEDS ORDERED: CEFEPIME/SWI 1gm 1 GM/10 ML SYR IV ONE (11:30)
--- NOTE | 2018-04-11 11:34 | RAD REPORT ---
EXAM DESCRIPTION: CT - Abdomen Pelvis Wo Contrast - 04/11/2018 11:20 am CLINICAL HISTORY: Abdominal pain. no oral contrast;Abd pain COMPARISON: Abdomen Pelvis W Contrast dated 08/20/2017 TECHNIQUE: CT imaging of the abdomen and pelvis was performed without contrast. Solid organ, bowel a nd vascular assessment is limited due to lack of IV and oral contrast. All CT scans are performed using dose optimization technique as appropriate and may include automated exposure control or mA/KV adjustment according to patient size. FINDINGS: The lower lung gonzalez are clear. The liver, spleen, pancreas, adrenal glands and kidneys are within normal limits for a limited non-co ntrast examination. No bowel obstruction, free air, free fluid or abscess. Aortic atherosclerosis noted. The appendix is not identified as a discrete structure, however, no secondary findings of appendicitis are identified . Postsurgical changes affect the lumbar spine.Rutledge catheter is in place. IMPRESSION: No acute intra-abdominal or pelvic findings. A limited non-contrast examination was performed as detailed.
[2018-04-11 12:07] LABS: Barbiturates NEGATIVE (NEGATIVE); Benzodiazepines NEGATIVE (NEGATIVE); Cocaine NEGATIVE (NEGATIVE); METHAMPHETAM NEGATIVE (NEGATIVE); Methadone NEGATIVE (NEGATIVE); Opiates NEGATIVE (NEGATIVE); Phencyclidine NEGATIVE (NEGATIVE); THC Cannibis NEGATIVE (NEGATIVE)
[2018-04-11 12:09] LABS: Urine Bacteria <20 /HPF (NONE SEEN); Urine Culture Reflex Order REFLEXED; Urine Mucus 2+ /HPF (NONE SEEN)
[2018-04-11] MEDS ORDERED: ALBUTEROL 2.5 MG/3 ML NEB SOL NEB PRN (13:18)
[2018-04-11] MEDS ORDERED: IPRATROPIUM BROM 0.5MG/2.5ML NEB PRN (13:18)
[2018-04-11] MEDS ORDERED: ONDANSETRON 4 MG/2 ML VIAL IV PRN (13:18)
[2018-04-11] MEDS ORDERED: NA CHLORIDE 0.9% 1,000 ML with NA BICARB 8.4% 50 MEQ IV SCH ×2 (13:30)
[2018-04-11] MEDS ORDERED: LORazepam 2 MG/ML VIAL IV PRN (14:13)
[2018-04-11 14:32] VITALS: BMI 20.1
[2018-04-11] MEDS ORDERED: LORAZEPAM 1 MG TABLET PO PRN (14:35)
[2018-04-11] MEDS ORDERED: FLUMAZENIL 0.1 MG/ML (5 mL VIAL) IV PRN (14:35)
[2018-04-11] MEDS: HYDROCODONE/APAP 7.5/325 MG TAB PO PRN (14:40)
[2018-04-11] MEDS: NA CHLORIDE 0.9% 1,000 ML IV SCH ×2 (15:00→20:44)
[2018-04-11] MEDS: LORAZEPAM 1 MG TABLET PO SCH ×3 (15:17→23:26)
[2018-04-11 15:39] LABS: Potassium 3.7 mmol/L (3.5-5.1); Uric Acid 4.3 mg/dL (3.5-7.2)
[2018-04-11] MEDS: ENOXAPARIN 30 MG/0.3 ML SQ SCH (17:45)
[2018-04-11] MEDS: NICOTINE 21 MG/PAT TD SCH (18:27)
--- NOTE | 2018-04-11 18:38 | CON ---
Date of Consultation: 04/11/2018 Reason For Consultation: Elevated BUN and creatinine, hyponatremia. History Of Present Illness: This is a pleasant 68-year-old gentleman with significant past medical h istory of coronary artery disease, status post CABG; hypertension; alcohol use; COPD. The patient moraes lena recent admission to the hospital back in December 2017 with dizziness and fall. At that time, he wa s treated, coronary artery disease was ruled out, and discharged. At that time, I did not see any hy ponatremia. At this time, according to him, again he passed out and felt dizzy, brought to the [facility]. On arrival to the hospital, he was hypotensive and hypothermic. For that reason, the patient w as started on fluid resuscitation and Darryl Hugger. Temperature corrected. After 2.5 L, blood pressu re stabilized. Primary workup showed sodium at 9 o'clock 122, potassium 3.4, bicarb of 17 with hypom agnesemia. For that reason, we have been consulted. The patient denied taking frequently nonsteroid al. No change in his medication according to him, but he always answering by yes for any question. Reviewing his medication, the patient apparently on losartan-hydrochlorothiazide from previous admiss ion. The patient denied any nausea or vomiting. Past Medical History: Includes: 1.Hypertension. 2.Hyperlipidemia. 3.Coronary artery disease, status post CABG. 4.COPD. Social History: Active smoker. Active alcohol. Denies drug abuse. Allergies: NO KNOWN DRUG ALLERGIES. Home Medications: Include baclofen, alprazolam, hydrocodone, meclizine, losartan with hydrochlorothi azide, pantoprazole. Family History: Positive for hypertension and coronary artery disease. Review of Systems: Head and Neck: No red eye. No ear pain. GI: No nausea. No vomiting. : No polyuria. No dysuria. No hematuria. 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 Respiratory: No shortness of breath. Cardiovascular: Has low blood pressure. Has syncope. Musculoskeletal: No joint pain. Neuro: Has loss of conscious. Endocrine: No polydipsia. Physical Examination: Vital Signs: When I saw the patient, blood pressure of 145/74, pulse of 73. Earlier on presentation to the hospital, blood pressure was down to the 70. Chest: Clear to auscultation. Heart: S1, S2. Regular. Abdomen: Soft, nontender. Extremities: No edema. Neuro: Nonfocal. Laboratory Data: WBC 9.8, H and H 14.4/42, platelet 475. Sodium 122, potassium 3.4, bicarb 17, BUN 13, creatinine 1.8, calcium 9.6, magnesium 1.3, lactic acid 4.4. CK 378. BNP 527. Procalcitonin 0. 6. CT abdomen and pelvis was done today. No acute cardiopulmonary finding. No intra-abdominal acut e finding. Current Medications: In the hospital include cefepime, Lovenox, albuterol, normal saline. The patie nt is going to be started on sodium bicarb 100 mL per hour, folic acid, Zofran, and thiamine. Chest x-ray, cardiomegaly without any congestion. Reviewing the record from previous admission, as I mentioned, the patient never had any history of hyponatremia before. Upon discharge back in December 2017, sodium 137, creatinine 1.2, GFR of 60. H and H 10.9/32.7. Urinalysis for today, specific gra vity was not recorded yet. No urine infection. Assessment And Plan: 1.Hyponatremia, symptomatic, looks to me depletional given the supported disproportion in the H and H till now from the previous admission. Also, possible beer potomania given the active drinker for t he patient. 2.I am going to continue hydration. Given that the severity of the acidosis not that severe, I rath er keep the patient on the normal saline to avoid any hypotonic fluid for the patient, and we will re peat the lab in 6 hours. 3.Discontinue hydrochlorothiazide and other blood pressure medications given the low blood pressure. 4.I going to go ahead and send for TSH and cortisol. 5.Acute kidney injury, mostly obstructive nephropathy has been ruled out with CT, mostly prerenal mina perimposed with mild rhabdo. We will continue hydration and we will follow up. 6.Hypertension, currently hypotension with the presence of hyponatremia, acute kidney injury. Hold all blood pressure medications, especially hydrochlorothiazide and ARB. 7.Coronary artery disease with shock, currently recovered. Follow up with Primary and Cardiology. 8.Hypokalemia and hypomagnesemia. We will supplement. Thank you, Dr. Vazquez, for allowing us to participate in the care of your patient. IRMA/ADELA Voice ID: [id number] Report ID: [id number]
--- NOTE | 2018-04-11 23:52 | HP ---
Date of Admission: 04/11/2018 Consultants: Tomer Al M.D. with Nephrology. Chief Complaint: Found down. Code Status: Full. History Of Present Illness: The patient is a 68-year-old male with past medical history of heart dis ease status post CABG, hypertension, nicotine dependence, smokes about 2 packs per day, history of pr evious [place], who has had a loop recorder implanted due to symptomatic bradycardia in the past, was foun d down today by friends for an unknown period of time. The patient was brought into the ER. He was nonresponsive. He was pale, mottled appearance. He was hypothermic. His workup revealed elevated l actate at 4.4, magnesium was low at 1.3. He was bradycardic in the 40s to 50s. The patient was resu scitated with IV fluids. He was also given magnesium replacement as well as broad-spectrum IV antibi otics. The patient's imaging studies did not show any acute intraabdominal or pelvic findings. Afte r being on the Darryl Hugger and with fluid resuscitation, the patient became more alert. His color im proved. He was able to recall that he "blacked out" today. He does not recall the preceding events. Does report being dizzy and lightheaded prior to the event. He is not sure how long he was out for . The patient was then referred for admission. The patient's symptoms are constant, moderate, progr essively worsening. When seen in the ER, he was more alert, oriented, ill-appearing. Past Medical History: Coronary artery disease status post CABG, hypertension, [place], diverticulitis, hi story of bradycardia with loop recorder in the past, GERD, insomnia. Surgical History: Coronary artery bypass graft, triple-vessel disease. Hernia repair, partial remov al of colon. Multiple back surgeries, 9 in total. The patient had fusions done. Allergies: NO DRUG ALLERGIES. Medications: List reviewed. Family History: Father had heart disease and hypertension. Mother had lung disease and seizures. Social History: The patient is a daily smoker, smokes about 2 packs per day. Has been smoking for v melonie long time. Does report social alcohol use. No illicit drug use. The patient stays at home. Do es have family nearby. Review of Systems: Limited due to patient's medical condition; however, 10-point system reviewed, negative except as per HPI. Physical Examination: Vital Signs: Blood pressure 109/89, pulse 53, respirations 20, O2 97% on 2 L via nasal cannula. Tem perature was 97.7. General: Awake, alert, oriented x2, in some mild distress. Does report pain in his back and his kne e, appears older than stated age, ill-appearing, frail male. HEENT: Normocephalic, atraumatic. PERRLA, EOMI. Dry mucous membranes. Oropharynx is clear. Poor dentition. Conjunctivae anicteric. Neck: Supple. No JVD. Trachea midline. CV: S1, S2. Sinus bradycardia. No murmurs. Peripheral pulses present bilaterally 1+. Respiratory: Clear to auscultation bilaterally. No wheezing or stridor. No use of accessory muscle s. Gastrointestinal: Abdomen is soft, nontender, nondistended. Positive bowel sounds. No guarding or rigidity. Extremities: No clubbing, cyanosis, or edema. No calf tenderness. Musculoskeletal: Decreased range of motion due to pain in his back. Mild tenderness to palpation. Neuro: Cranial nerves 2-12 intact grossly. No focal neurological deficit. Speech is normal. Stren gth is 5/5 bilateral upper and lower extremities. Skin: No rashes. Normal skin turgor. Laboratory Data: WBC 9.8, H and H 14.4, platelet count 475, neutrophils 80%. INR 0.95. ABG; pH 7.4 9, pCO2 is 14, PO2 is 156, bicarb is 10. Sodium 122, potassium 3.4, chloride 91, CO2 17, BUN 13, cre atinine 1.86, glucose 175, lactate 4.4, magnesium 1.3. CK 378, CK-MB 5.1, troponin less than 0.02. BNP 527. Albumin 4. Procalcitonin 0.61. UA: 5-10 rbc's, 5-10 wbc's, 5-10 squamous epithelial cell s, less than 20 bacteria. Nitrite and leukocyte esterase are pending. UDS negative. Acetaminophen level less than 2. EKG shows sinus bradycardia at a rate of 51 with premature PVCs, nonspecific ST-T wave abnormality. CT scan of the abdomen and pelvis shows no acute intraabdominal or pelvic finding s. Limited noncontrast examination performed as detailed. Chest x-ray personally reviewed shows no acute cardiopulmonary process. Assessment And Plan: A 68-year-old male with: 1.Acute metabolic encephalopathy, multifactorial, secondary to hyponatremia, electrolyte disturbance possibly due to bradycardia and syncopal episode. The patient is much more alert and awake now. Co ntinues to be bradycardic, rate in the 50s. We will continue monitoring on telemetry. 2.Acute hyponatremia. We will replace with IV fluids. We will monitor sodium level. 3.Acute kidney injury. Monitor creatinine. The patient's baseline is actually normal. We will con tinue IV fluids. Consult Nephrology. 4.Metabolic acidosis likely from being down. 5.Rhabdomyolysis. CK level 378. 6.Coronary artery disease status post CABG, [place] artery of [place] heart without angina. 7.Essential hypertension, currently hypotensive. We will continue with IV fluid resuscitation. 8.History of bradycardia. The patient has had loop monitoring previously. Follows with Dr. Hugo. 9.Gastroesophageal reflux disease without esophagitis. 10.Chronic back pain midline, without sciatica. 11.Nicotine dependence with cigarette smoking. Counseled for less than 3 minutes. 12.Gastrointestinal and deep venous thrombosis prophylaxis with PPI and Lovenox renally dosed. Plan: Admit the patient to ICU, place as inpatient. /ADELA Voice ID: [id number]
[2018-04-12] MEDS: LORAZEPAM 1 MG TABLET PO SCH ×6 (03:00→22:43)
[2018-04-12] MEDS: NA CHLORIDE 0.9% 1,000 ML IV SCH ×4 (04:49→22:53)
[2018-04-12 06:11] LABS: Absolute Lymphocytes (CBC) 0.7 K/uL (0.7-4.9); Absolute Monocytes 0.8 K/uL (0.1-1.3); Absolute Neutrophil 7.2 K/uL (1.8-8.0); Basophils % 0.6 % (0-1.3); Eosinophils % 0.9 % (0-4.4); Hematocrit 32.3 % (39.6-49.0); Lymphocytes % 8.1 % (15.3-44.8); MPV 7.3 fL (7.6-11.3); Monocytes % 8.9 % (3.3-12.3); RBC Red Blood Cell Count 3.18 M/uL (4.33-5.43)
[2018-04-12 06:40] LABS: Urine Protein/Creatinine Ratio 0.24 ratio (<0.15)
[2018-04-12 07:22] LABS: Albumin 2.9 g/dL (3.4-5.0); Bilirubin Total 0.4 mg/dL (0.2-1.0); Magnesium 1.6 mg/dL (1.8-2.4); Phosphorus 2.8 mg/dL (2.5-4.9); Potassium 3.5 mmol/L (3.5-5.1); Thyroid Stimulating Hormone 0.317 uIU/mL (0.360-3.740); Uric Acid 4.1 mg/dL (3.5-7.2)
[2018-04-12] MEDS ORDERED: VANCOMYCIN/NS 1 gm 1 GM/250 ML BAG IVPB SCH (08:15)
[2018-04-12] MEDS: PANTOPRAZOLE 40MG TABLET PO SCH (08:23)
[2018-04-12] MEDS: NICOTINE 21 MG/PAT TD SCH (08:23)
[2018-04-12] MEDS: FOLIC ACID 1 MG TABLET PO SCH (08:23)
[2018-04-12] MEDS: ASPIRIN 325 MG TAB PO SCH (08:23)
[2018-04-12] MEDS: THIAMINE HCL 100 MG TABLET PO SCH (08:25)
[2018-04-12] MEDS: VANCOMYCIN 1.25 GM in NA CHLORIDE 0.9% 250 ML IVPB SCH (08:47)
[2018-04-12] MEDS: HYDROCODONE/APAP 7.5/325 MG TAB PO PRN (15:45)
--- NOTE | 2018-04-12 17:47 | PN ---
Date of Progress Note: 04/12/2018 Subjective: The patient is seen and examined. Chart reviewed, and case discussed with RN. The marilou ent feels significantly better. States he had a rough night. Does report some pain in his back, whi ch is chronic. Overall doing better. Blood pressure significantly improved. Temperature is normal. The patient continues to be bradycardic, which is chronic for him. Medications: List reviewed. Physical Examination: Vital Signs: Temperature 97.4, heart rate 47, blood pressure 155/59, respirations 20, O2 of 100% on room air. General: Awake, alert, oriented x3. An elderly male, somewhat ill-appearing, frail, appears older t callahan stated age. CV: S1, S2. Regular rate and rhythm. Peripheral pulses weak. Respiratory: Moving air well bilaterally. No wheezing or stridor. Gastrointestinal: Abdomen is soft, nontender, nondistended. Positive bowel sounds. Extremities: No clubbing, cyanosis, or edema. Neurologic: Nonfocal. Laboratory Data: Sodium 133, potassium 3.5, chloride 105, CO2 of 19, BUN 10, creatinine 1, glucose 8 4, uric acid 4.1, calcium 8.2, phosphorus 2.8, magnesium 1.6. AST 60, ALT 40, albumin 2.9. TSH 0.31 7. WBC 8.8, H and H 11.1 and 32.3, platelets 299, neutrophils 81%. Blood cultures preliminary resul ts show gram-positive cocci in clusters. Urine culture, no growth. Assessment And Plan: A 68-year-old male with: 1.Acute metabolic encephalopathy secondary to hyponatremia, bradycardia, and syncopal episode, possi christina infection. 2.Acute hyponatremia, improving. We will continue with IV fluids adjusted. Appreciate Nephrology i nput. 3.Acute kidney injury. Creatinine now normalized. We will continue to monitor. Avoid NSAIDs and n ephrotoxins. 4.Metabolic acidosis. 5.Rhabdomyolysis. We will monitor CK level. 6.Coronary artery disease, status post coronary artery bypass graft, [place] artery and [place] heart, without angina, stable. 7.Essential hypertension. The patient was initially hypotensive. Blood pressure now trending in th e 140s. We will resume home medications. 8.History of sinus bradycardia. The patient did have loop study done previously. Does follow with Cardiology as an outpatient. Asymptomatic. 9.Gastroesophageal reflux disease without esophagitis. Continue PPI. 10.Chronic back pain, midline, without sciatica. 11.Nicotine dependence with cigarette smoking, counseled. 12.Gastrointestinal and deep venous thrombosis prophylaxis with PPI and Lovenox. 13.Bacteremia. Gram stain showing gram-positive cocci. May be skin contaminant, however, given the patient's situation, we will start on prophylactic antibiotics with vancomycin and follow up on ID a nd sensitivity. Step down from ICU. Likely discharge in the next 24 to 48 hours depending on clinical response. SA/MODL Voice ID: [id number] Report ID: [id number]
[2018-04-12] MEDS: ENOXAPARIN 30 MG/0.3 ML SQ SCH (18:13)
--- NOTE | 2018-04-12 21:29 | P.PN ---
Subjective Date of Service: 04/12/18 Subjective: Improving Na 133, Cr normalized reduce IVF rate to 70ml/hr encourage po intake Physical Examination - Vital Signs Temperature: 97.8 F Blood Pressure: 171/77 Pulse: 54 Respirations: 20 Pulse Ox (%): 100 - Physical Exam General: Alert, In no apparent distress HEENT: Atraumatic Neck: Supple, JVD not distended, Without JVD or thyroid abnormality Respiratory: Clear to auscultation bilaterally, Normal air movement Cardiovascular: No edema, Regular rate/rhythm, Normal S1 S2, No rubs, No murmurs Gastrointestinal: Normal bowel sounds, Soft and benign Assessment And Plan - Current Problems (Diagnosis) (1) Hyponatremia Current Visit: Yes Status: Acute (2) Acute kidney injury Onset Date: 10/30/16 Current Visit: No Status: Acute (3) Dehydration Onset Date: 06/27/16 Current Visit: No Status: Acute - Plan Assessment And Plan: Hyponatremia, resolved due to dehydration reduce IVF rate Dc HCTZ F/U TSH and cortisol PATRICIA resolved due to prenal azotemia abd CT no hydro Hypokalemia and hypomagnesmia monitor and replace G+ve bacteremia Cont Abx monitor vanco level TTE
[2018-04-12] MEDS: LOSARTAN POTASSIUM 50 MG TABLET PO SCH (22:55)
[2018-04-13] MEDS: HYDROCODONE/APAP 7.5/325 MG TAB PO PRN ×3 (01:41→21:51)
[2018-04-13] MEDS: VANCOMYCIN 1.25 GM in NA CHLORIDE 0.9% 250 ML IVPB SCH ×2 (04:19→21:50)
[2018-04-13] MEDS: LORAZEPAM 1 MG TABLET PO SCH ×5 (04:19→22:49)
[2018-04-13 05:10] LABS: Albumin 2.6 g/dL (3.4-5.0); BUN Blood Urea Nitrogen 8 mg/dL (7-18); Bicarbonate 22 mmol/L (21-32); Glucose Level 82 mg/dL (74-106); Phosphorus 2.4 mg/dL (2.5-4.9); Potassium 3.4 mmol/L (3.5-5.1); Sodium Level 135 mmol/L (136-145)
[2018-04-13] MEDS ORDERED: hydroCHLOROthiazide 12.5 MG CAP PO SCH (09:00)
[2018-04-13] MEDS ORDERED: HOME MED 1 EA UNK (Losartan/Hydrochlorothiazide [Losartan-Hctz 100-12.5 Mg Tab] 1 TAB) PO SCH (09:00)
[2018-04-13] MEDS: THIAMINE HCL 100 MG TABLET PO SCH (10:42)
[2018-04-13] MEDS: LOSARTAN POTASSIUM 50 MG TABLET PO SCH (10:42)
[2018-04-13] MEDS: PANTOPRAZOLE 40MG TABLET PO SCH (10:43)
[2018-04-13] MEDS: NICOTINE 21 MG/PAT TD SCH (10:43)
[2018-04-13] MEDS: FOLIC ACID 1 MG TABLET PO SCH (10:43)
[2018-04-13] MEDS: ASPIRIN 325 MG TAB PO SCH (10:43)
--- NOTE | 2018-04-13 10:43 | RAD REPORT ---
EXAM DESCRIPTION: CT - Head Brain Wo Cont - 04/13/2018 9:49 am CLINICAL HISTORY: Weakness, dizziness, syncope COMPARISON: CT head January 09, 2018 TECHNIQUE: Axial 5 mm thick images of the head were obtained without IV contrast. All CT scans are performed using dose optimization technique as appropriate and may include automated exposure control or mA/KV adjustment according to patient size. FINDINGS: No intracranial hemorrhage, mass, edema or shift of mid-line structures. No acute cortical based infarction. No cortical edema or sulcal effacement. Atrophy and chronic ischemic changes match the December study. Ventricles are in proportion to volume loss. Arterial and physiologic calcificati ons are present. Mastoid air cells remain clear. There is complete opacification of the right maxillary sinus with scl erotic, thickened right maxillary sinus roblero. No expansile process or destructive bone change. Right deviation of the anterior nasal septum again noted. Small right frontal and anterior right ethmoid a ir cell opacification remains. No acute bony findings. IMPRESSION: No acute intracranial finding seen. Patient has underlying atrophy and chronic ischemic change matching the December study. Chronic right-side sinusitis. Findings are stable from December.
--- NOTE | 2018-04-13 14:10 | P.PN ---
Subjective Date of Service: 04/13/18 Subjective: Improving Na normalized, Cr normalized poor oral intake ,encourage po intake will reduce IVF to 50ml tomorrow K replaced Physical Examination - Vital Signs Temperature: 98.1 F Blood Pressure: 112/58 Pulse: 42 Respirations: 16 Pulse Ox (%): 98 - Physical Exam General: Alert, In no apparent distress HEENT: Atraumatic Neck: Supple, Without JVD or thyroid abnormality Respiratory: Clear to auscultation bilaterally, Normal air movement Cardiovascular: No edema, Regular rate/rhythm, Normal S1 S2 Gastrointestinal: Normal bowel sounds, Soft and benign - Studies Microbiology Data (last 24 hrs): 04/11/18 11:39 Clean Catch Urine [place] Count - Final <10,000 CFU/ML. 04/11/18 11:39 Clean Catch Urine - Final Assessment And Plan - Current Problems (Diagnosis) (1) Hyponatremia Current Visit: Yes Status: Acute (2) Acute kidney injury Onset Date: 10/30/16 Current Visit: No Status: Acute (3) Dehydration Onset Date: 06/27/16 Current Visit: No Status: Acute - Plan Assessment And Plan: Hyponatremia, resolved due to dehydration Dc HCTZ cortisol ok, TSh slighlty low PATRICIA resolved due to prenal azotemia abd CT no hydro Hypokalemia and hypomagnesmia monitor and replace G+ve bacteremia Cont Abx monitor vanco level TTE
[2018-04-13] MEDS ORDERED: POTASSIUM CL SA 10 MEQ TAB PO ONE (14:17)
[2018-04-13] MEDS: NA CHLORIDE 0.9% 1,000 ML IV SCH ×2 (15:39→21:36)
[2018-04-13] MEDS: ENOXAPARIN 30 MG/0.3 ML SQ SCH (16:54)
[2018-04-13] MEDS ORDERED: POTASSIUM PHOS IN 0.9 % NACL 15 MMOL/250 ML BAG IV ONE (17:26)
--- NOTE | 2018-04-13 19:46 | PN ---
Date of Progress Note: 04/13/2018 History: The patient seen and examined. Chart reviewed and case discussed with RN. The patient sta maverick he is feeling better. States his pain is improved, but still feels very weak. Medications: List reviewed. Physical Examination: Vital Signs: Temperature 98.1, heart rate 42, blood pressure 112/58, respirations 16, O2 98% on room air. General: Awake, alert, oriented x3. Elderly male, appears older than stated age, frail. CV: S1, S2. Sinus bradycardia. No murmurs. Peripheral pulses present. Respiratory: Moving air well bilaterally. No wheezing or stridor. Gastrointestinal: Abdomen is soft, nontender, nondistended. Positive bowel sounds. Extremities: No clubbing, cyanosis, or edema. Neurologic: Nonfocal. Laboratory Data: Sodium 135, potassium 3.4, chloride 106, CO2 22, BUN 8, creatinine 0.83, glucose 82 , calcium 8.2, phosphorus 2.4, albumin 2.6. Blood cultures, preliminary results show gram-positive c occi in clusters, 3/4 bottles coagulase Staph negative, likely skin contaminant. CT scan of the head shows no acute intracranial finding, underlying atrophy and chronic ischemic changes from previous s tudy in December of 2017. Chronic right-sided sinusitis, findings stable. Assessment And Plan: A 68-year-old male with: 1.Acute metabolic encephalopathy secondary to hyponatremia, bradycardia, syncopal episode. 2.Acute hyponatremia, corrected. Adjust IV fluids. Appreciate Nephrology input. HCTZ has been dis continued. 3.Acute kidney injury. Creatinine normalized. We will continue to monitor. Avoid nephrotoxins. 4.Metabolic acidosis, improving. 5.Rhabdomyolysis, resolved. 6.Coronary artery disease, status post coronary artery bypass graft, [place] artery, [place] heart wit hout angina. 7.Essential hypertension, stable. 8.History of sinus bradycardia. The patient follows with manager scheduling as outpatient. Has had previ ous loop study done, currently asymptomatic. 9.Gastroesophageal reflux disease without esophagitis. Continue PPI. 10.Chronic back pain, midline, without sciatica, stable. 11.Nicotine dependence with cigarette smoking. Counseled. Continue with nicotine patch. 12.Abnormal Gram stain, gram-positive cocci with coagulase-negative Staph, which is likely skin cont aminant. We will discontinue vancomycin. The patient has been afebrile. No signs of sepsis. 13.Disuse myopathy. The patient is very weak, unable to get up and move around. We will have PT ev aluation and may need home PT versus SNF. Discharge in the 24 hours depending on placement. We will have Social Work work on discharge planning. /ADELA Voice ID: [id number] Report ID: [id number]
[2018-04-13] MEDS: POTASS/SODIUM PHOSPHATE 1 PKT POWD.PACK PO SCH ×3 (20:50→22:26)
[2018-04-13 21:59] LABS: Potassium 4.3 mmol/L (3.5-5.1)
[2018-04-14] MEDS: LORAZEPAM 1 MG TABLET PO SCH ×5 (02:36→20:20)
[2018-04-14] MEDS: NA CHLORIDE 0.9% 1,000 ML IV SCH (05:45)
[2018-04-14 06:14] LABS: Albumin 2.5 g/dL (3.4-5.0); BUN Blood Urea Nitrogen 9 mg/dL (7-18); Bicarbonate 22 mmol/L (21-32); Glucose Level 80 mg/dL (74-106); Potassium 3.8 mmol/L (3.5-5.1); Sodium Level 137 mmol/L (136-145)
[2018-04-14 06:15] LABS: Magnesium 1.2 mg/dL (1.8-2.4)
[2018-04-14] MEDS ORDERED: Magnesium Sulfate 2gm IVPB 2 G/50 ML BAG IV ONE (06:19)
[2018-04-14] MEDS ORDERED: POTASSIUM CL SA 10 MEQ TAB PO ONE (06:20)
[2018-04-14] MEDS: NICOTINE 21 MG/PAT TD SCH (09:38)
[2018-04-14] MEDS: FOLIC ACID 1 MG TABLET PO SCH (09:38)
[2018-04-14] MEDS: THIAMINE HCL 100 MG TABLET PO SCH (09:38)
[2018-04-14] MEDS: PANTOPRAZOLE 40MG TABLET PO SCH (09:38)
[2018-04-14] MEDS: HYDROCODONE/APAP 7.5/325 MG TAB PO SCH ×3 (09:38→20:20)
[2018-04-14] MEDS: LOSARTAN POTASSIUM 50 MG TABLET PO SCH (09:38)
[2018-04-14] MEDS: ASPIRIN 325 MG TAB PO SCH (09:49)
[2018-04-14] MEDS ORDERED: MAGNESIUM SULFATE 1 gm IVPB 1 GM/100 ML BAG IV SCH (16:00)
[2018-04-14] MEDS: ENOXAPARIN 40 MG/0.4 ML SQ SCH (16:36)
[2018-04-14] MEDS: NAFCILLIN SODIUM 2 GM in NA CHLORIDE 0.9% 100 ML IVPB SCH ×2 (16:37→23:38)
--- NOTE | 2018-04-14 18:16 | P.PN ---
Subjective Date of Service: 04/14/18 Cr and Na nromalized Low Mg , replaced K and Phos ok Can Dc IVF Physical Examination - Vital Signs Temperature: 97.8 F Blood Pressure: 160/71 Pulse: 49 Respirations: 16 Pulse Ox (%): 99 - Physical Exam General: Alert, In no apparent distress HEENT: Atraumatic Neck: Supple, Without JVD or thyroid abnormality Respiratory: Clear to auscultation bilaterally, Normal air movement Cardiovascular: No edema, Regular rate/rhythm, Normal S1 S2 Gastrointestinal: Normal bowel sounds, Soft and benign - Studies Microbiology Data (last 24 hrs): 04/11/18 09:46 Blood - Blood Aerobic Blood Culture - Final Staph Epidermidis 04/11/18 09:46 Blood - Blood Gram Stain - Final 04/11/18 09:46 Blood - Blood Anaerobic Blood Culture - Final Staph Epidermidis 04/11/18 09:46 Blood - Blood Gram Stain - Final 04/11/18 10:00 Blood - Blood Anaerobic Blood Culture - Final Staph Epidermidis 04/11/18 10:00 Blood - Blood Gram Stain - Final Assessment And Plan - Current Problems (Diagnosis) (1) Hyponatremia Current Visit: Yes Status: Acute (2) Acute kidney injury Onset Date: 10/30/16 Current Visit: No Status: Acute (3) Dehydration Onset Date: 06/27/16 Current Visit: No Status: Acute - Plan Assessment And Plan: Hyponatremia, resolved due to dehydration Dc HCTZ cortisol ok, TSh slighlty low PATRICIA resolved due to prenal azotemia abd CT no hydro Hypokalemia and hypomagnesmia monitor and replace G+ve bacteremia F/U complete results Cont Abx monitor vanco level
--- NOTE | 2018-04-14 19:17 | PN ---
Date of Progress Note: 04/14/2018 Subjective: The patient seen and examined. Chart reviewed and case discussed with RN. The patient worked with PT yesterday, very weak, PT recommending custodial facility. The patient is agreea ble. Medications: List reviewed. Physical Examination: Vital Signs: Temperature 98.1, heart rate 45, blood pressure 146/69, respirations 16, O2 96% on room air. General: Awake, alert, oriented x3. Elderly male, no acute distress. CV: S1 and S2. Sinus bradycardia. No murmurs. Peripheral pulses present. Respiratory: Moving air well bilaterally. No wheezing. Gastrointestinal: Abdomen is soft, nontender, nondistended. Positive bowel sounds. Extremities: No clubbing, cyanosis, or edema. Neurologic: Nonfocal. Laboratory Data: Sodium 137, potassium 3.8, chloride 107, CO2 22, BUN 9, creatinine 0.79, glucose 80 , calcium 8.3, phosphorus 3, magnesium 1.2. Repeat magnesium level is 1.7, albumin 2.5. WBC pending . Blood cultures growing out Staph epidermidis, sensitive to Cipro, Levaquin, oxacillin and vancomyc in. Assessment And Plan: A 68-year-old male with: 1.Acute metabolic encephalopathy secondary to hyponatremia, bradycardia, syncopal episode, resolved. The patient went to baseline, alert and oriented x3. 2.Acute hyponatremia, corrected. Discontinue IV fluids. HCTZ is being discontinued. Nephrology on board. 3.Acute kidney injury with creatinine normalized. Continue to monitor. 4.Metabolic acidosis, resolving. 5.Rhabdomyolysis, resolved. 6.Bacteremia with Staph epidermidis. We will start on oral antibiotics. The patient was on vancomy laurita, switched to beta-lactam antibiotic if not allergic. 7.Sinus bradycardia, asymptomatic. 8.Essential hypertension, stable. 9.Coronary artery disease, [place] artery and [place] heart, status post coronary artery bypass grafti ng without angina. 10.Gastroesophageal reflux disease without esophagitis. Continue PPI. 11.Chronic back pain, midline, without sciatica, stable. 12.Nicotine dependence. Cigarette smoking, counseled. 13.Disuse myopathy. Continue PT. Plan: Refer to SNF [facility] and discharge once accepted. SA/MODL Voice ID: [id number] Report ID: [id number]
[2018-04-14] MEDS ORDERED: TRAZODONE 50 MG TABLET PO ONE (23:48)
[2018-04-15 04:51] LABS: Albumin 2.5 g/dL (3.4-5.0); BUN Blood Urea Nitrogen 7 mg/dL (7-18); Bicarbonate 24 mmol/L (21-32); Glucose Level 86 mg/dL (74-106); Phosphorus 3.2 mg/dL (2.5-4.9); Sodium Level 139 mmol/L (136-145)
[2018-04-15 05:06] LABS: Magnesium 1.5 mg/dL (1.8-2.4)
[2018-04-15] MEDS ORDERED: Magnesium Sulfate 2gm IVPB 2 G/50 ML BAG IV ONE (05:17)
[2018-04-15] MEDS: NAFCILLIN SODIUM 2 GM in NA CHLORIDE 0.9% 100 ML IVPB SCH ×4 (06:40→23:46)
[2018-04-15] MEDS: HYDROCODONE/APAP 7.5/325 MG TAB PO SCH ×3 (08:22→20:56)
[2018-04-15] MEDS: NICOTINE 21 MG/PAT TD SCH (08:22)
[2018-04-15] MEDS: PANTOPRAZOLE 40MG TABLET PO SCH (08:22)
[2018-04-15] MEDS: FOLIC ACID 1 MG TABLET PO SCH (08:23)
[2018-04-15] MEDS: THIAMINE HCL 100 MG TABLET PO SCH (08:23)
[2018-04-15] MEDS: ASPIRIN 325 MG TAB PO SCH (08:23)
[2018-04-15] MEDS: LOSARTAN POTASSIUM 50 MG TABLET PO SCH (08:23)
[2018-04-15] MEDS: ENOXAPARIN 40 MG/0.4 ML SQ SCH (17:15)
--- NOTE | 2018-04-15 18:24 | PN ---
Date of Progress Note: 04/15/2018 Subjective: The patient seen and examined. Chart reviewed and case discussed with RN. The patient is still reporting some dizziness when getting up. Medications: List reviewed. Physical Examination: Vital Signs: Temperature 97.7, heart rate 48, blood pressure 164/78, respirations 22, O2 99% on room air. Orthostatic blood pressure: Lying is 175/77 and heart rate 72, sitting blood pressure 138/74 and heart rate 87, standing 116/72 and pulse is 102. General: Awake, alert, oriented x3. Elderly male, appears older than stated age and frail. CV: S1, S2. Regular rate and rhythm. Peripheral pulses weak bilaterally. Respiratory: Moving air well bilaterally. No wheezing or stridor. Gastrointestinal: Abdomen is soft, nontender, nondistended. Positive bowel sounds. Extremities: No clubbing, cyanosis, or edema. Neurologic: Nonfocal. Laboratory Data: Sodium 139, potassium 4, chloride 109, CO2 24, BUN 7, creatinine 0.78, glucose 86, calcium 8.5, magnesium 1.5, phosphorus 3.2, albumin 2.5. Assessment And Plan: A 68-year-old male with: 1.Acute metabolic encephalopathy secondary to hyponatremia, syncopal episode, resolved, back to base line. 2.Acute hyponatremia with hypovolemia, corrected. HCTZ discontinued due to hyponatremia. IV fluids discontinued. Sodium level is normal. Continue to monitor. Appreciate Nephrology input. 3.Acute kidney injury. Creatinine is now normalized. Continue to monitor. Avoid NSAIDs. 4.Metabolic acidosis, resolved. 5.Rhabdomyolysis, resolved. 6.Near syncopal episode. The patient is orthostatic and bradycardic. We will have Cardiology evalu ate the patient. The patient has had previous Holter monitor study done in the past. He is not able to recall the results. We will obtain echocardiogram. 7.Bacteremia with Staph epidermidis. Ordinarily, this may be a skin contaminant. However, as patie nt has hardware in the hands, neck and back, there is a possibility of seeding. Therefore, we will c ontinue with IV antibiotics with beta-lactams and have ID consultation. 8.Sinus bradycardia, asymptomatic. 9.Essential hypertension, stable. 10.Coronary artery disease, [place] artery and [place] heart, status post coronary artery bypass graft ing without angina. 11.Gastroesophageal reflux disease without esophagitis. Continue PPI. 12.Chronic back pain, midline, without sciatica, stable. 13.Nicotine dependence. Cigarette smoking. Continue with nicotine patch. 14.Disuse myopathy. Continue PT. Plan: Cardiology evaluation. Follow up on echo to rule out vegetations. ID consultation. Discharg e to SNF once accepted. May be able to be transitioned to oral antibiotics. We will discuss further with Infectious Disease. SA/MODL Voice ID: [id number] Report ID: [id number]
[2018-04-15] MEDS: TEMAZEPAM 15 MG CAP PO PRN (20:56)
--- NOTE | 2018-04-15 21:30 | CON ---
History Of Present Illness: Bravo Lockett is a 68-year-old male coming in with encephalopathy, hy ponatremia, acute renal failure. I was consulted for bacteremia. The patient denies any headache, n ausea, vomiting, chest pain, abdominal pain, constipation, or diarrhea. The patient has been having falls recently since last one year when he is passing out and falling. Right now, recently he has hu rt his left arm. Most of the time he falls when he is trying to get up. When he is lying down, has no problems with dizziness and passing out. Past Medical History: Coronary artery disease status post CABG, hypertension, myocardial infarction, diverticulitis, history of bradycardia with loop recorder in the past, GERD, insomnia. Past Surgical History: Bypass surgery triple vessel; hernia repair with partial removal of colon; mu ltiple back surgeries, total of 9 with fusions. Social History: Tobacco positive. Alcohol positive. Family History: Noncontributory. Medication: Nafcillin. See MAR for other medication. Allergies: NO KNOWN DRUG ALLERGIES. Review of Systems: A 10-point review was performed. Physical Examination: General: This is a 68-year-old male lying in bed, not in any acute cardiopulmonary distress. Vital Signs: Temperature 97.9, pulse 59, respirations 16, blood pressure 132/69. HEENT: Unremarkable. Neck: Supple. Lungs: Basal crackles. Heart: S1, S2. Regular. Abdomen: Soft, nontender. Bowel sounds present. Surgical scars noted from previous surgery. Extremities: Left arm with multiple traumatic lesions noted. Laboratory Data: Shows WBC 8.8, hemoglobin 9.1, platelets are 299. Chemistry shows sodium 139, pota ssium of 4, chloride 109, bicarb 24, BUN 7, creatinine 0.78, glucose is 86, albumin is 2.5. Micro da ta; blood cultures are growing Staph epi 4/4. Abdominal CT shows no acute inside trauma or pelvic pr oblems. He had a chest x-ray done on April 11, shows no acute cardiopulmonary process. CT head do ne on April 13 shows no acute intracranial findings. Assessment And Plan: Bacteremia secondary to Staph epidermidis in a patient with multiple falls with tobacco and alcohol use and multiple medical problems including coronary artery disease and status p ost CABG. Continue antibiotic for 2-3 weeks. Repeat cultures prior to stopping antibiotic. We will follow the patient closely. Thank you Dr. Vazquez for consult. NF/MODL Voice ID: [id number] Report ID: [id number]
[2018-04-15] MEDS ORDERED: MORPHINE 4 MG/ML SYR IV ONE (23:19)
--- NOTE | 2018-04-16 04:19 | CON ---
Date of Consultation: 04/15/2018 Reason For Consultation: Bradycardia, presyncope, altered mental status, hypothermia, and renal fail ure that is acute. History Of Present Illness: Mr. Lockett is a 68-year-old white male. He is very well known to us f rom previous office visits and admissions. He has a history of chronic bradycardia that has been goi ng on for approximately 15 years as far as I know. He also has a history of coronary artery disease, status post stents, approximately 15 years ago. He has a history of COPD, diverticulitis, gastroeso phageal reflux disease, low magnesium, hypertension. He came in on 04/11/2018 with basically unrespo nsive. The patient has been seen by Nephrology and Infectious Disease. He was hyponatremic, bactere jeremy, and in renal failure. Infectious Disease thinks he has bacteremia secondary to Staph epidermidi s. Antibiotic was recommended for 3 weeks. Nephrology had seen him. Their impression is symptomati c hyponatremia, probably secondary to alcohol and dehydration. His hydrochlorothiazide was discontin ued. He was being hydrated. Obstructive neuropathy was to be ruled out. Mild rhabdomyolysis was th ought to be an issue. Potassium and magnesium were supplemented. His EKG basically shows sinus giorgio ycardia in the 50s with nonspecific ST-T wave changes. Chest x-ray was negative. Abdominal CT and p elvic CT were negative. A head CT was negative except for atrophy. Past Medical History: As stated above. Allergies: NONE. Review of Systems: Negative. Social History: Positive for alcohol. Medications: At home are supposed to be Xanax, aspirin, baclofen, fish oil, Tylenol No. 3, Hyzaar, m agnesium, meclizine, Protonix. Physical Examination: Vital Signs: Today, his heart rate was in the 60s, blood pressure was 143/76. He was afebrile. He was in a sinus rhythm. His I's and O's were adequate. O2 saturation was 98% on room air. HEENT: Negative. Neck: Supple. No bruits. Chest: Clear. Cardiac: Revealed a regular rhythm and rate. No murmurs, gallops, or rubs. Abdomen: Benign. Extremities: Revealed no clubbing, cyanosis, or edema. Diagnostic Data: Diagnostic data was as stated mostly above. His last creatinine was 0.78. His las t magnesium was 1.5. His last vancomycin level was 11.3. Impression And Plan: 1.Syncope and multiple falls, those I believe are secondary to orthostatic hypotension, not bradycar [place]. His bradycardia has been chronic for 15 years. He has been evaluated with event monitors and H olters in the past as well as echos and stress tests, all of those have been normal. He goes on with his bradycardia for years without any symptoms, and started having orthostatic hypotension secondary to alcohol abuse, dehydration, as well as his Hyzaar. I agree with removing the hydrochlorothiazide . I agree with hydration, supplementation of potassium and magnesium, IV antibiotics for his bactere refugio. He needs to be on antibiotics for at least 3 weeks. Once he is over this issue with bacteremia and electrolyte abnormalities, I will re-evaluate his bradycardia. I may get him to see Electrophys iology in [place] to see what they think regarding the possibility of a pacemaker. I doubt this is a n issue honestly. I think he needs to have his alcohol stopped, his diuretic stopped, and see how he does in the near future. I do not recommend any further cardiac workup at this point. 2.His coronary artery disease is stable. He has had recent negative stress test and echos. 3.He has chronic obstructive pulmonary disease, diverticulitis, gastroesophageal reflux disease, hypertension that is well controlled. I will continue to follow Mr. Lockett. TOMASA/ADELA Voice ID: [id number] Report ID: [id number]
--- NOTE | 2018-04-16 04:28 | PN ---
Date of Progress Note: 04/15/2018 Chief Complaint: Hyponatremia, hypo-osmolar; volume depletion; acute kidney injury secondary to prer enal azotemia. History Of Present Illness: CT of abdomen and pelvis did not show hydronephrosis. 1.The patient was found to have hypokalemia and hypomagnesemia secondary to diuretic, and the patien t is undergoing replacement. According to lab work results, the patient was found to have gram-posit danny bacteremia and is started on antibiotics, receiving vancomycin. 2.Acute kidney injury, nonoliguric. Renal function has improved to baseline. 3.Hyponatremia was found on admission on April 11. Sodium level was 122. On April 15, it is 13 9 and stable. 4.The patient was found to have hypomagnesemia. Magnesium was 1.2. The patient received replacemen t. Magnesium level is improving to 1.9. Review of Systems: Denies fever or chills. Physical Examination: Lungs: Clear to auscultation bilaterally. Heart: S1 and S2. Abdomen: Soft, benign, and nontender. Extremities: Minimal ankle edema. Laboratory Data: Sodium 139, potassium 4.0, chloride 109, CO2 of 24, BUN 7, creatinine 0.78, magnesi um 1.9, calcium 8.5, and phosphorus 3.2. Impression And Plan: 1.Acute kidney injury. Renal function has improved to baseline. The patient received IV fluids. 2.Hyponatremia, improving gradually. Over last 24 hours, has been stable. Plan is to monitor elect rolytes and stop fluid restriction. 3.Hypomagnesemia. Replacement was ordered. Magnesium level improved. Monitor phosphorus, magnesiu m, and renal panel. 4.The patient is not a candidate for HCTZ due to risk of recurrent hyponatremia. 5.Volume depletion. Continue hydration. IV fluids as needed. EB/MODL Voice ID: [id number] Report ID: [id number]
[2018-04-16 05:06] LABS: Albumin 2.6 g/dL (3.4-5.0); Phosphorus 3.5 mg/dL (2.5-4.9); Potassium 4.2 mmol/L (3.5-5.1)
[2018-04-16] MEDS: NAFCILLIN SODIUM 2 GM in NA CHLORIDE 0.9% 100 ML IVPB SCH ×3 (06:00→17:57)
--- NOTE | 2018-04-16 07:58 | ECHO ---
HEIGHT: 5 ft 10 in WEIGHT: 147 lb 12.8 oz DATE OF STUDY: 04/15/[address]: Dahiana Vazquez MD 2-DIMENSIONAL: YES M.MODE: YES DOPPLER: YES COLOR FLOW: YES TDS: YES PORTABLE: DEFINITY: BUBBLE STUDY: DIAGNOSIS: BACTEREMIA CARDIAC HISTORY: CATHERIZATION: SURGERY: PROSTHETIC VALVE: PACEMAKER: MEASUREMENTS (cm) DIASTOLIC (NORMALS) SYSTOLIC (NORMALS) IVSd 1.3 (0.6-1.2) LA Diam 3.7 (1.9-4.0) LVEF 68% LVIDd 3.6 (3.5-5.7) LVIDs 2.3 (2.0-3.5) %FS 37% LVPWd 1.3 (0.6-1.2) Ao Diam 3.6 (2.0-3.7) 2 DIMENSIONAL ASSESSMENT: RIGHT ATRIUM: NORMAL LEFT ATRIUM: NORMAL RIGHT VENTRICLE: NORMAL LEFT VENTRICLE: LEFT VENTRICULAR HYPERTROPHY TRICUSPID VALVE: NORMAL MITRAL VALVE: MITRAL ANNULAR CALCIFICATION PULMONIC VALVE: NORMAL AORTIC VALVE: NORMAL PERICARDIAL EFFUSION: NONE AORTIC ROOT: NORMAL LEFT VENTRICULAR WALL MOTION: NORMAL EJECTION FRACTION DOPPLER/COLOR FLOW: MILD TRICUSPID REGURGITATION COMMENTS: MILD TRICUSPID REGURGITATION. LEFT VENTRICULAR HYPERTROPHY. NO WALL MOTION ABNORMALITY. MITRAL ANNULAR CALCIFICATION. NORMAL EJECTION FRACTION. NO VEGETATION. TECHNOLOGIST: JAYSHREE NELSON
[2018-04-16] MEDS: HYDROCODONE/APAP 7.5/325 MG TAB PO SCH ×3 (08:39→21:35)
[2018-04-16] MEDS: NICOTINE 21 MG/PAT TD SCH (08:39)
[2018-04-16] MEDS: FOLIC ACID 1 MG TABLET PO SCH (08:39)
[2018-04-16] MEDS: ASPIRIN 325 MG TAB PO SCH (08:39)
[2018-04-16] MEDS: LOSARTAN POTASSIUM 50 MG TABLET PO SCH (08:40)
[2018-04-16] MEDS: PANTOPRAZOLE 40MG TABLET PO SCH (08:43)
[2018-04-16] MEDS: THIAMINE HCL 100 MG TABLET PO SCH (08:44)
[2018-04-16] MEDS: ACETAMINOPHEN 500 MG TAB PO PRN (16:17)
[2018-04-16] MEDS: ENOXAPARIN 40 MG/0.4 ML SQ SCH (16:18)
--- NOTE | 2018-04-16 19:21 | P.PN ---
Subjective Date of Service: 04/16/18 Subjective: No new changes Patient seen and examined at bedside. No family at bedside. Chart reviewed and case discussed with nursing staff. Review of Systems 10-point ROS is otherwise unremarkable Physical Examination - Vital Signs Temperature: 98.5 F Blood Pressure: 148/68 Pulse: 58 Respirations: 22 Pulse Ox (%): 99 - Physical Exam General: Alert, In no apparent distress HEENT: Atraumatic, PERRLA, EOMI Neck: Supple, JVD not distended Respiratory: Clear to auscultation bilaterally, Normal air movement Cardiovascular: Regular rate/rhythm, Normal S1 S2 Gastrointestinal: Normal bowel sounds, No tenderness Musculoskeletal: No tenderness Integumentary: No rashes Neurological: Normal speech, Normal tone, Normal affect Lymphatics: No axilla or inguinal lymphadenopathy Assessment And Plan - Plan : A 68-year-old male with: 1. Acute metabolic encephalopathy secondary to hyponatremia, syncopal episode , resolved, back to baseline. 2. Acute hyponatremia with hypovolemia, corrected. HCTZ discontinued due to hyponatremia. IV fluids discontinued. Sodium level is normal. Continue to monitor. Appreciate Nephrology input. 3. Acute kidney injury. Creatinine is now normalized. Continue to monitor. Avoid NSAIDs. 4. Metabolic acidosis, resolved. 5. Rhabdomyolysis, resolved. 6. Near syncopal episode. The patient is orthostatic and bradycardic. Cardiology recommendations appreciated. The patient has had previous Holter monitor study done in the past. He is not able to recall the results. Echo normal, no vegetations noted. 7. Bacteremia with Staph epidermidis. Ordinarily, this may be a skin contaminant. However, as patient has hardware in the hands, neck and back, there is a possibility of seeding. Therefore, we will continue with IV antibiotics with beta-lactams. ID consultation appreciated. Patient and have ID consultation. 8. Sinus bradycardia, asymptomatic. 9. Essential hypertension, stable. 10. Coronary artery disease, [place] artery and [place] heart, status post coronary artery bypass grafting without angina. 11. Gastroesophageal reflux disease without esophagitis. Continue PPI. 12. Chronic back pain, midline, without sciatica, stable. 13. Nicotine dependence. Cigarette smoking. Continue with nicotine patch. 14. Diffuse myopathy. Continue PT. Plan: Discharge to SNF once accepted. Unable to transition to oral antibiotics because patient with history of diarrhea, colon resection and unsure if patient will be able to absorb the oral antibiotics.
[2018-04-16] MEDS: TEMAZEPAM 15 MG CAP PO PRN (22:49)
--- NOTE | 2018-04-17 02:50 | PN ---
Date of Progress Note: 04/16/2018 Subjective: The patient was admitted with acute kidney injury shock. Creatinine was elevated. The patient has poor perfusion, ATN, complicated with hyponatremia. After fluid resuscitation, kidney fu nction started being improved, recovered, and resolved. Physical Examination: Vital Signs: Today, blood pressure 148/68, pulse of 58, afebrile. Chest: Faint crackles on the left base. Heart: S1, S2. Regular. Systolic murmur. Abdomen: Soft, nontender. Extremities: Trace edema. Laboratory Data: Sodium 137, potassium 4.2, bicarb 27, BUN 7, and creatinine 0.9. Calcium 8.5, phos phorus 3.5. Medications: Reviewed. Assessment And Plan: 1.Acute kidney injury, secondary to prerenal, recovered, resolved. 2.Hypertension, controlled, optimal. Continue current treatment. 3.Shock, resolved. 4.Hyponatremia, secondary to cardiorenal, resolved. IRMA/ADELA Voice ID: [id number] Report ID: [id number]
[2018-04-17] MEDS: NAFCILLIN SODIUM 2 GM in NA CHLORIDE 0.9% 100 ML IVPB SCH ×6 (05:46→23:30)
[2018-04-17] MEDS: PANTOPRAZOLE 40MG TABLET PO SCH (07:39)
[2018-04-17] MEDS: HYDROCODONE/APAP 7.5/325 MG TAB PO SCH ×3 (07:43→20:23)
[2018-04-17] MEDS: ASPIRIN 325 MG TAB PO SCH (11:29)
[2018-04-17] MEDS: FOLIC ACID 1 MG TABLET PO SCH (11:29)
[2018-04-17] MEDS: NICOTINE 21 MG/PAT TD SCH (11:30)
[2018-04-17] MEDS: LOSARTAN POTASSIUM 50 MG TABLET PO SCH (11:30)
[2018-04-17] MEDS: THIAMINE HCL 100 MG TABLET PO SCH (11:30)
[2018-04-17] MEDS: ENOXAPARIN 40 MG/0.4 ML SQ SCH (16:31)
[2018-04-17] MEDS: ACETAMINOPHEN 500 MG TAB PO PRN (16:31)
--- NOTE | 2018-04-17 16:53 | PN ---
Subjective: The patient doing well. The patient was admitted with acute kidney injury, altered ment al status, and hyponatremia with shock. The patient was maintained on gentle hydration. The patient was moved from the ICU. Objective: Vital Signs: Blood pressure 156/69, pulse of 51. Chest: Clear to auscultation. Heart: S1-S2, regular. Abdomen: Soft. Nontender. Extremities: Trace edema. Laboratory Data: WBC 8.8, H and H 11.1/32.3, platelet 299. Sodium 137, potassium 4.2, bicarb 27, BU N 7, creatinine 0.9, calcium 8.5, phosphorus 3.5, albumin 2.6. Current Medications: The patient on its include aspirin, nafcillin, nicotine patch, losartan 100, ip ratropium, folic acid, pantoprazole. Assessment And Plan: 1.Acute kidney injury secondary to prerenal, recovered, resolved. 2.Hypertension, controlled, optimal. Continue current medication. 3.Hyponatremia secondary to depletion and poor perfusion, recovered, resolved. We will discontinue all IV fluid. KALEN Voice ID: [id number] Report ID: [id number]
--- NOTE | 2018-04-17 16:58 | P.PN ---
Subjective Date of Service: 04/17/18 Subjective: No new changes Patient seen and examined at bedside. No family at bedside. Chart reviewed and case discussed with nursing staff. Complaining of dizziness for the past year that is pretty persistent especially when standing from sitting or lying position. Denies any other complaints, speech changes, vision changes, chest pain, shortness of breath, etc Review of Systems 10-point ROS is otherwise unremarkable Physical Examination - Vital Signs Temperature: 98.5 F Blood Pressure: 148/68 Pulse: 58 Respirations: 22 Pulse Ox (%): 99 - Physical Exam General: Alert, In no apparent distress, Oriented x3 HEENT: Atraumatic, PERRLA, EOMI Neck: Supple, JVD not distended Respiratory: Clear to auscultation bilaterally, Normal air movement Cardiovascular: Regular rate/rhythm, Normal S1 S2 Gastrointestinal: Normal bowel sounds, No tenderness Musculoskeletal: No tenderness Integumentary: No rashes Neurological: Normal speech, Normal tone, Normal affect Lymphatics: No axilla or inguinal lymphadenopathy Assessment And Plan - Plan : A 68-year-old male with: 1. Acute metabolic encephalopathy secondary to hyponatremia, syncopal episode , resolved, back to baseline. 2. Acute hyponatremia with hypovolemia, corrected. HCTZ discontinued due to hyponatremia. IV fluids discontinued. Sodium level is normal. Continue to monitor. Appreciate Nephrology input. 3. Acute kidney injury. Creatinine is now normalized. Continue to monitor. Avoid NSAIDs. 4. Metabolic acidosis, resolved. 5. Rhabdomyolysis, resolved. 6. Near syncopal episode. The patient is orthostatic and bradycardic. Cardiology recommendations appreciated. The patient has had previous Holter monitor study done in the past. He is not able to recall the results. Echo normal, no vegetations noted. 7. Bacteremia with Staph epidermidis. Ordinarily, this may be a skin contaminant. However, as patient has hardware in the hands, neck and back, there is a possibility of seeding. Therefore, we will continue with IV antibiotics with beta-lactams. ID consultation appreciated. PICC line placement ordered. 8. Sinus bradycardia, asymptomatic. 9. Essential hypertension, stable. 10. Coronary artery disease, [place] artery and [place] heart, status post coronary artery bypass grafting without angina. 11. Gastroesophageal reflux disease without esophagitis. Continue PPI. 12. Chronic back pain, midline, without sciatica, stable. 13. Nicotine dependence. Cigarette smoking. Continue with nicotine patch. 14. Diffuse myopathy. Continue PT. 15. Dizziness: Imaging on admission negative for any acute abnormalities; no neurology available today for consultation. Will have physical therapy attempt diagnostic Preet maneuver. Plan: Discharge to SNF once accepted. Unable to transition to oral antibiotics because patient with history of diarrhea, colon resection and unsure if patient will be able to absorb the oral antibiotics.
--- NOTE | 2018-04-17 17:32 | PN ---
Subjective: The patient lying in bed, continues to have some dizziness. Denies any headache, nausea , vomiting, chest pain, abdominal pain, constipation. Diarrhea have been 2-3 times every day since h loi has colonic surgery, colonic resection. The patient denies any other problems at this point. Objective: Vital Signs: Temperature 98.7, pulse 51, respirations 18, blood pressure 156/69. Lungs: Basal crackles. Heart: S1, S2. Regular. Abdomen: Soft. Bowel sounds hyperactive. Extremity: No edema. Lesions on the left arm, morbid. Laboratory Data: Shows WBC 8.8, hemoglobin 9.1, platelets are 299. Chemistry shows sodium 137, pota ssium 4.2, chloride 105, bicarb 27, BUN 7, creatinine 0.9, glucose is 83, albumin is 2.6. Assessment And Plan: Bacteremia, can be Staphylococcus epidermidis in a patient continuing to have l oose motions secondary to colon resection. We would recommend to continue IV antibiotics. Also have a neurologist evaluate the patient. Continue supportive care and antibiotic, total course of 2 week s. NF/MODL Voice ID: [id number] Report ID: [id number]
[2018-04-17] MEDS: TEMAZEPAM 15 MG CAP PO PRN (22:28)
[2018-04-17] MEDS ORDERED: MORPHINE 4 MG/ML SYR IV ONE (22:38)
[2018-04-18] MEDS: NAFCILLIN SODIUM 2 GM in NA CHLORIDE 0.9% 100 ML IVPB SCH ×3 (05:12→18:00)
[2018-04-18] MEDS: ACETAMINOPHEN 500 MG TAB PO PRN ×2 (05:12→16:39)
[2018-04-18 05:46] LABS: Magnesium 1.5 mg/dL (1.8-2.4); Phosphorus 3.7 mg/dL (2.5-4.9)
[2018-04-18] MEDS ORDERED: Magnesium Sulfate 2gm IVPB 2 G/50 ML BAG IV ONE (07:00)
[2018-04-18] MEDS: PANTOPRAZOLE 40MG TABLET PO SCH (07:46)
[2018-04-18 07:57] LABS: Absolute Lymphocytes (CBC) 1.3 K/uL (0.7-4.9); Absolute Monocytes 0.8 K/uL (0.1-1.3); Absolute Neutrophil 5.9 K/uL (1.8-8.0); Basophils % 0.2 % (0-1.3); Eosinophils % 5.9 % (0-4.4); Hematocrit 29.7 % (39.6-49.0); Lymphocytes % 15.9 % (15.3-44.8); MPV 7.4 fL (7.6-11.3); RBC Red Blood Cell Count 2.94 M/uL (4.33-5.43)
--- NOTE | 2018-04-18 08:54 | RAD REPORT ---
EXAM DESCRIPTION: RAD - Chest Single View - 04/18/2018 6:19 am CLINICAL HISTORY: Device placement PICC line placement COMPARISON: April 11 FINDINGS: A PICC line has been inserted with its tip in the mid superior vena cava. The lungs appear clear of acute infiltrate. The heart is normal size. Postsurgical changes involve th e chest IMPRESSION: PICC line with its tip in the superior vena cava
[2018-04-18 09:01] VITALS: O2SAT 97
[2018-04-18] MEDS: HYDROCODONE/APAP 7.5/325 MG TAB PO SCH ×3 (09:44→19:05)
[2018-04-18] MEDS: NICOTINE 21 MG/PAT TD SCH (09:44)
[2018-04-18] MEDS: ASPIRIN 325 MG TAB PO SCH (09:45)
[2018-04-18] MEDS: FOLIC ACID 1 MG TABLET PO SCH (09:45)
[2018-04-18] MEDS: LOSARTAN POTASSIUM 50 MG TABLET PO SCH (09:45)
[2018-04-18] MEDS: THIAMINE HCL 100 MG TABLET PO SCH (09:45)
--- NOTE | 2018-04-18 14:47 | P.PN ---
Subjective Date of Service: 04/18/18 Subjective: Improving Cr and Na nromalized stable vitals good appetite cleared for discharge from nephrology point of view Physical Examination - Vital Signs Temperature: 98.3 F Blood Pressure: 102/54 Pulse: 75 Respirations: 20 Pulse Ox (%): 98 - Physical Exam General: In no apparent distress, Oriented x3 HEENT: Atraumatic, Normocephalic Neck: Supple, Without JVD or thyroid abnormality Respiratory: Clear to auscultation bilaterally, Normal air movement Cardiovascular: No edema, Regular rate/rhythm, Normal S1 S2 Gastrointestinal: Normal bowel sounds, Soft and benign Assessment And Plan - Current Problems (Diagnosis) (1) Hyponatremia Current Visit: Yes Status: Acute (2) Acute kidney injury Onset Date: 10/30/16 Current Visit: No Status: Acute (3) Dehydration Onset Date: 06/27/16 Current Visit: No Status: Acute - Plan Assessment And Plan: Hyponatremia, resolved due to dehydration Dc HCTZ cortisol ok, TSh slighlty low PATRICIA resolved due to prenal azotemia abd CT no hydro Hypokalemia and hypomagnesmia replaced Staph epidermis Abx as per ID
[2018-04-18] MEDS: ENOXAPARIN 40 MG/0.4 ML SQ SCH (16:39)
[2018-04-18 16:45] VITALS: BP 149/69; TEMP 98.2
[2018-04-18] MEDS ORDERED: ALBUTEROL 2.5 MG/3 ML NEB SOL NEB PRN (17:00)
== END 2018-04-18 19:15 | DRG 70 ==
LOC: ER 09:31 → ERHOLD 11:50 → 3RD-ICU 13:20 → 4TH 04-12 09:35
PROVIDERS: ADMIT Family Medicine; ATTEND Family Medicine
PROC: 06HY33Z Insertion of Infusion Device into Lower Vein, Percutaneous Approach (ICD-10-PCS; 2018-04-11)
PROC: 02HV33Z Insertion of Infusion Device into Superior Vena Cava, Percutaneous Approach (ICD-10-PCS; principal; 2018-04-18)
DX: G93.41 Metabolic encephalopathy (principal); N17.0 Acute kidney failure with tubular necrosis; E87.1 Hypo-osmolality and hyponatremia; N17.9 Acute kidney failure, unspecified; E87.2 Acidosis; M62.82 Rhabdomyolysis; R78.81 Bacteremia; I25.10 Atherosclerotic heart disease of native coronary artery without angina pectoris; Z95.1 Presence of aortocoronary bypass graft; R00.1 Bradycardia, unspecified; K21.9 Gastro-esophageal reflux disease without esophagitis; I10 Essential (primary) hypertension; F17.210 Nicotine dependence, cigarettes, uncomplicated; G89.29 Other chronic pain; M54.5 Low back pain; J44.9 Chronic obstructive pulmonary disease, unspecified; E78.5 Hyperlipidemia, unspecified; E87.6 Hypokalemia; E83.42 Hypomagnesemia; E86.0 Dehydration; Z91.81 History of falling; B95.7 Other staphylococcus as the cause of diseases classified elsewhere; I95.1 Orthostatic hypotension; T50.2X5A Adverse effect of carbonic-anhydrase inhibitors, benzothiadiazides and other diuretics, initial encounter; Y92.019 Unspecified place in single-family (private) house as the place of occurrence of the external cause; G72.89 Other specified myopathies; Z90.49 Acquired absence of other specified parts of digestive tract
CPT/HCPCS: 36415; 51702; 70450; 71045; 74176; 80048; 80053; 80069; 80076; 80202; 80307; 80329; 81015; 82533; 82550; 82553; 82570; 82805; 82962; 83605; 83690; 83735; 83880; 83935; 84100; 84132; 84145; 84156; 84300; 84443; 84484; 84550; 85025; 85610; 85730; 87040; 87077; 87086; 87088; 87186; 87205; 93005; 93306; 97112; 97116; 97163; 97530; 99285; G0378; J0692; J1650; J3370; J3475; J7030

== ENCOUNTER 2018-05-30 13:14 | Emergency (ER) | payer OTHER ==
--- OUTSIDE RECORDS SUMMARY | 2018-05-30 13:16 | XMS REPORT | Clinical Summary ---
:1950 Author Organization [facility] Address [address] [place] [address] Care Team Providers Name Role Phone James [...] Team Description 09/20/2017 Emergency Emergency Medicine after 05/29/2017 Social History Tobacco Use Types Packs/Day Years [...] Comments COLON CANCER SCREENING 1999 SHINGLES VACCINES (#1) 1999 65+ PNEUMOCOCCAL VACCINE (1 of 2 - PCV13) 2014 PNEUMOCOCCAL POLYSACCHARIDE VACCINE AGE 65 AND OVER 2014 INFLUENZA VACCINE 10/17/2017 Implants Implanted Type Area [employer] Magistrate Device Shelf Model / Identifier Expiration Serial / Date Lot System Reveal Linq W/Monitors - [id number] - [id number] Cardiovascular Left: [employer] 07/30/2016 LINQSYS / Implanted: Qty: 1 on 09/22/2015 by Miley Gonsalez Jr., MD Implants Chest CARDIAC RHYTHM [id number] / Wall DISEASE MGMT Results Not on fileafter 05/29/2017 Insurance Payer Benefit Plan / Group Subscriber ID Type Phone Address [employer] HMO xxxxxxxx HMO MCR ADV MEDICARE MEDICARE PART A AND B xxxxxxxxxx Medicare [place], [place] ([place]) [place] [address] Advance Directives Patient has advance care planning documents on file. For more information, please contact:Anirudh Otero[address] [place] [address]
--- NOTE | 2018-05-30 14:02 | RAD REPORT ---
EXAM DESCRIPTION: CT - Head Brain Wo Cont - 05/30/2018 1:50 pm CLINICAL HISTORY: Syncope COMPARISON: March 2017 TECHNIQUE: Computed axial tomography of the head was obtained. IV contrast was not requested. All CT scans are performed using dose optimization technique as appropriate and may include automated exposure control or mA/KV adjustment according to patient size. FINDINGS: Air is present within cavernous sinus An intracranial bleed is not seen . The ventricles are normal in caliber. No extra-axial fluid collection is noted. Fluid within the sinuses/ mastoids is not seen. IMPRESSION: Air within the cavernous sinus. If the patient has an intravenous line in place then thi s likely is secondary to venous air emboli of no clinical significance. This should be correlated cli nically. If patient continues have symptoms to suggest intracranial/spinal cord pathology then MRI be recommen ded
--- NOTE | 2018-05-30 14:35 | ER ---
Nurse's Notes [facility] Name: Bravo Lockett Age: 68 yrs Sex: Male : 1950 Arrival Date: 05/30/2018 Time: 13:20 Bed 6 Private MD: Diagnosis: Syncope and collapse;Bradycardia, unspecified Presentation: 05/30 13:21 Presenting complaint: EMS states: Family/Friend called EMS for pt after pt hitting the sg left side of the top of his head and a skin tear to the left elbow, pt had multiple episodes of snoring respirations and unresponsiveness per EMS, pt refused transport to facility and reports having 3 alcoholic beverages today and taking his pain medications today. Transition of care: patient was not received from another setting of care. Onset of symptoms was May 30, 2018. Risk Assessment: Do you want to hurt yourself or someone else? Patient reports no desire to harm self or others. Initial Sepsis Screen: Does the patient meet any 2 criteria? No. Patient's initial sepsis screen is negative. Does the patient have a suspected source of infection? No. Patient's initial sepsis screen is negative. Care prior to arrival: IV initiated. 18 GA, in the right antecubital area, Glucose check: 68. 13:21 Method Of Arrival: EMS: [facility] sg 13:21 Acuity: AURELIO 2 sg Historical: - Allergies: 13:28 NKDA; sg - PMHx: 13:28 CAD; COPD; Diverticulitis; GERD; Hypertension; Hypomagnesemia; Myocardial infarction; sg Vertigo; - PSHx: 13:28 Unable to obtain; sg Assessment: 14:40 Reassessment: too, pt son contacted, is arranging transportation to home. sg Vital Signs: 13:20 BP 126 / 58; Pulse 45; Resp 17; Temp 97.7; Pulse Ox 98% on R/A; Weight 59.87 kg; Pain sg 0/10; NIH Stroke Scale Scores: 13:21 NIHSS Score: 0 sg ED Course: 13:20 Patient arrived in ED. sg 13:20 Arm band placed on. sg 13:22 Steven Briseno PA is PHCP. jr8 13:22 Pedro Joseph MD is Attending Physician. jr8 13:26 Triage completed. sg 13:28 Mcmillan, Darren, RN is Primary Nurse. sg 13:49 CT Head Brain wo Cont In Process Unspecified. EDMS 13:49 CT completed. Patient tolerated procedure well. Patient moved to CT via stretcher. Patient moved back from CT. 14:22 EKG done, by oil and gas field technician. reviewed by Steven GANN. sm3 14:31 XRAY Chest (1 view) In Process Unspecified. EDMS Administered Medications: No medications were administered Outcome: 14:48 Patient left the ED. NIH Stroke Scale - NIH Stroke Score Date: 05/30/2018 Time: 13:21 Total Score = 0 1a. Level of Consciousness (LOC) - 0(Alert) 1b. Level of Consciousness (LOC) (Year \T\ Age) - 0(Both) 1c. LOC Commands (Open \T\ Closes Eyes/Ship Officer) - 0(Both) 2. Best Gaze (Lateral Gaze Paresis) - 0(Normal) 3. Visual Field Loss - 0(No visual loss) 4. Facial Palsy - 0(Normal) 5a. Left Arm: Motor (10-second hold) - 0(No drift) 5b. Right Arm: Motor (10-second hold) - 0(No drift) 6a. Left Leg: Motor (5-second hold - always test supine) - 0(No drift) 6b. Right Leg: Motor (5-second hold - always test supine) - 0(No drift) 7. Limb Ataxia (finger/nose \T\ heel/[place] - test with eyes open) - 0(Absent) 8. Sensory Loss (pinprick arms/legs/face) - 0(Normal) 9. Best Language: Aphasia (description/naming/reading) - 0(No aphasia) 10. Dysarthria (speech clarity - read or repeat words) - 0(Normal) 11. Extinction and Inattention (visual/tactile/auditory/spatial/personal) - 0(No abnormality) Initials: sg Signatures: Dispatcher [employer] EDMS Darren Mcmillan RN RN sg Jones, Susan sj Roszak, Josh, PA PA jr8 Camelia Wagner RN RN Renée Tena 3
--- NOTE | 2018-05-30 14:35 | EDPHYS ---
Physician Documentation [facility] Name: Bravo Lockett Age: 68 yrs Sex: Male : 1950 Arrival Date: 05/30/2018 Time: 13:20 Bed 6 Private MD: Pedro Fuchs HPI: 05/30 14:30 This 68 yrs old Male presents to ER via EMS with complaints of Syncope. jr8 14:30 The patient has experienced syncope, collapsed. Onset: The symptoms/episode jr8 began/occurred acutely, today. Duration: The patient has had multiple episodes. Context: the episode(s) was witnessed, by a friend, occurred at home, occurred while the patient was at rest, Just prior to the episode the patient experienced no apparent symptoms. Associated injury: The patient did not suffer any apparent associated injury. Associated signs and symptoms: The patient has no apparent associated signs or symptoms. Current symptoms: Currently, the patient is not experiencing any symptoms, the patient feels back to baseline, no decreased level of consciousness, no confusion, no dysphasia, no headache, no paralysis, no visual changes. The patient has experienced a previous episode. Patient with history of bradycardia. Suppose to have Pacemaker placed late this month in [place]. Had two syncopal episodes today prior to arrival. EMS stated that he had orthostatic changes . Historical: - Allergies: 13:28 NKDA; sg - PMHx: 13:28 CAD; COPD; Diverticulitis; GERD; Hypertension; Hypomagnesemia; Myocardial infarction; sg Vertigo; - PSHx: 13:28 Unable to obtain; sg ROS: 14:30 Eyes: Negative for injury, pain, redness, and discharge, ENT: Negative for injury, jr8 pain, and discharge, Neck: Negative for injury, pain, and swelling, Cardiovascular: Negative for chest pain, palpitations, and edema, Respiratory: Negative for shortness of breath, cough, wheezing, and pleuritic chest pain, Abdomen/GI: Negative for abdominal pain, nausea, vomiting, diarrhea, and constipation, Back: Negative for injury and pain, MS/Extremity: Negative for injury and deformity, Skin: Negative for injury, rash, and discoloration. 14:30 Neuro: Positive for syncope. Exam: 14:30 Eyes: Pupils equal round and reactive to light, extra-ocular motions intact. Lids and jr8 lashes normal. Conjunctiva and sclera are non-icteric and not injected. Cornea within normal limits. Periorbital areas with no swelling, redness, or edema. ENT: Nares patent. No nasal discharge, no septal abnormalities noted. Tympanic membranes are normal and external auditory canals are clear. Oropharynx with no redness, swelling, or masses, exudates, or evidence of obstruction, uvula midline. Mucous membranes moist. Neck: Trachea midline, no thyromegaly or masses palpated, and no cervical lymphadenopathy. Supple, full range of motion without nuchal rigidity, or vertebral point tenderness. No Meningismus. Cardiovascular: Regular rate and rhythm with a normal S1 and S2. No gallops, murmurs, or rubs. Normal PMI, no JVD. No pulse deficits. Respiratory: Lungs have equal breath sounds bilaterally, clear to auscultation and percussion. No rales, rhonchi or wheezes noted. No increased work of breathing, no retractions or nasal flaring. Abdomen/GI: Soft, non-tender, with normal bowel sounds. No distension or tympany. No guarding or rebound. No evidence of tenderness throughout. Back: No spinal tenderness. No costovertebral tenderness. Full range of motion. Skin: Warm, dry with normal turgor. Normal color with no rashes, no lesions, and no evidence of cellulitis. Skin tear to left elbow and abrasion noted to right forehead MS/ Extremity: Pulses equal, no cyanosis. Neurovascular intact. Full, normal range of motion. Neuro: Awake and alert, GCS 15, oriented to person, place, time, and situation. Cranial nerves II-XII grossly intact. Motor strength 5/5 in all extremities. Sensory grossly intact. Cerebellar exam normal. Normal gait. Vital Signs: 13:20 BP 126 / 58; Pulse 45; Resp 17; Temp 97.7; Pulse Ox 98% on R/A; Weight 59.87 kg; Pain sg 0/10; NIH Stroke Scale Scores: 13:21 NIHSS Score: 0 sg MDM: 13:22 Patient medically screened. jr8 14:30 Data reviewed: vital signs, nurses notes, radiologic studies. Counseling: I had a jr8 detailed discussion with the patient and/or guardian regarding: the historical points, exam findings, and any diagnostic results supporting the discharge/admit diagnosis, the need for further work-up and treatment in the hospital. ED course: Patient does not want to stay to be further evaluated. Patient refuses any further treatment. Stated that he knows what is wrong and will have it fixed end of month. Wants to be released and wants us to give him a ride home. Patient alert to person, place, time, event. Explained to patient the need to stay to insure his heart is ok and blood pressure maintains. That going home would put him at risk of further injury. Patient did not care and wants to go home. Signed AMA . 05/30 13:33 Order name: XRAY Chest (1 view); Complete Time: 19:11 [facility] 05/30 13:33 Order name: EKG; Complete Time: 13:34 [facility] 05/30 13:33 Order name: Cardiac monitoring [facility] 05/30 13:33 Order name: EKG - Nurse/Tech [facility] 05/30 13:33 Order name: IV Saline Lock [facility] 05/30 13:33 Order name: CT Head Brain wo Cont; Complete Time: 14:24 [facility] 05/30 13:33 Order name: Labs collected and sent [facility] 05/30 13:33 Order name: O2 Per Protocol [facility] 05/30 13:33 Order name: O2 Sat Monitoring [facility] Administered Medications: No medications were administered Disposition: 15:21 Co-signature as Attending Physician, Pedro Joseph MD I agree with the assessment and rory plan of care. Disposition: 05/30/18 14:35 Patient has left against medical advice. Impression: Syncope and collapse, Bradycardia, unspecified. - Patients states they are going to Home. - Condition is Stable. - Discharge Instructions: Bradycardia, Adult, Syncope. Follow up: Private Physician; When: 24 Hours; Reason: Recheck today's complaints, Continuance of care, Re-evaluation by your physician. - Problem is new. - Symptoms are resolved. NIH Stroke Scale - NIH Stroke Score Date: 05/30/2018 Time: 13:21 Total Score = 0 1a. Level of Consciousness (LOC) - 0(Alert) 1b. Level of Consciousness (LOC) (Year \T\ Age) - 0(Both) 1c. LOC Commands (Open \T\ Closes Eyes/Straightedge Man) - 0(Both) 2. Best Gaze (Lateral Gaze Paresis) - 0(Normal) 3. Visual Field Loss - 0(No visual loss) 4. Facial Palsy - 0(Normal) 5a. Left Arm: Motor (10-second hold) - 0(No drift) 5b. Right Arm: Motor (10-second hold) - 0(No drift) 6a. Left Leg: Motor (5-second hold - always test supine) - 0(No drift) 6b. Right Leg: Motor (5-second hold - always test supine) - 0(No drift) 7. Limb Ataxia (finger/nose \T\ heel/[place] - test with eyes open) - 0(Absent) 8. Sensory Loss (pinprick arms/legs/face) - 0(Normal) 9. Best Language: Aphasia (description/naming/reading) - 0(No aphasia) 10. Dysarthria (speech clarity - read or repeat words) - 0(Normal) 11. Extinction and Inattention (visual/tactile/auditory/spatial/personal) - 0(No abnormality) Initials: sg Signatures: Dispatcher [employer] EDDarren Nieves RN RN Pedro Young MD MD cha Roszak, Josh, PA PA jrCamelia Lam RN RN hb Corrections: (The following items were deleted from the chart) 14:48 14:35 05/30/2018 14:35 Patients has left against medical advice. Impression: hb Syncope and collapse; Bradycardia, unspecified. Patient states they are going to Home. Condition is Stable. Follow up: Private Physician; When: 24 Hours; Reason: Recheck today's complaints, Continuance of care, Re-evaluation by your physician. Problem is new. Symptoms are resolved. jr8
--- NOTE | 2018-05-30 14:42 | RAD REPORT ---
EXAM DESCRIPTION: Rodrigo Single View05/30/2018 2:30 pm CLINICAL HISTORY: Chest pain COMPARISON: March 2018 FINDINGS: The lungs appear clear of acute infiltrate. The heart is mildly enlarged. Postsurgical changes involve the chest. IMPRESSION: No acute abnormalities displayed
[2018-05-30 14:52] VITALS: BP 126/58; TEMP 97.7; O2SAT 98
--- NOTE | 2018-05-31 05:29 | EKG ---
Test Date: 2018-05-30 Test Time: 13:44:22 Trust Manager Assistant: TRINH MEASUREMENT RESULTS: Intervals: Rate: 54 MI: 134 QRSD: 90 QT: 462 QTc: 438 [place]: P: 76 MI: 134 QRS: 76 T: 45 INTERPRETIVE STATEMENTS: Sinus bradycardia Otherwise normal ECG Compared to ECG 04/11/2018 09:46:10 Ventricular premature complex(es) no longer present ST (T wave) deviation no longer present Electronically Signed On 05-31-18 05:28:37 CDT by Lars Ayala
== END 2018-05-30 14:48 | disposition left against medical advice (07) ==
LOC: ER 13:14
DX: R00.1 Bradycardia, unspecified (principal); I10 Essential (primary) hypertension; I25.2 Old myocardial infarction
CPT/HCPCS: 70450; 71045; 93005; 99284

== ENCOUNTER 2018-07-11 16:50 | Emergency (ER) | payer OTHER ==
--- OUTSIDE RECORDS SUMMARY | 2018-07-11 16:53 | XMS REPORT | Clinical Summary ---
:1950 Author Organization [facility] Address [address] [place] [address] Care Team Providers Name Role Phone James [...] Team Description 09/20/2017 Emergency Emergency Medicine after 07/10/2017 Social History Tobacco Use Types Packs/Day Years [...] AGE 65 AND OVER 2014 INFLUENZA VACCINE 10/17/2018 Implants Implanted Type Area Healthcare Social Worker Device Shelf Model / Identifier Expiration Serial / Date Lot System Reveal Linq W/Monitors - [id number] - [id number] Cardiovascular Left: [employer] 07/30/2016 LINQSYS / Implanted: Qty: 1 on 09/22/2015 by Miley Gonsalez Jr., MD Implants Chest CARDIAC RHYTHM [id number] / Wall DISEASE MGMT Results Not on fileafter 07/10/2017 Insurance Payer Benefit Plan / Group Subscriber ID Type Phone Address [employer] HMO xxxxxxxx HMO MCR ADV MEDICARE MEDICARE PART A AND B xxxxxxxxxx Medicare [place], [place] ([place]) [place] [address] Advance Directives Patient has advance care planning documents on file. For more information, please contact:Anirudh Otero[address] [place] [address]
--- OUTSIDE RECORDS SUMMARY | 2018-07-11 16:53 | XMS REPORT ---
:1950 [facility] Address [address] [place] [address] Dr. Cisse [address] [place] [address] Care Team Providers Name Role Phone Unavailable Unavailable Unavailable Problems This patient has no known problems. Allergies, Adverse Reactions, Alerts This patient has no known allergies or adverse reactions. Medications This patient has no known medications. Encounters Start End Encounter Admission Attending Care Care Encounter Date/Time Date/Time Type Type Clinicians Facility Department ID 2018-07-03 2018-07-03 Outpatient [id number] 09:05:00 09:05:00
--- NOTE | 2018-07-11 19:00 | RAD REPORT ---
EXAM DESCRIPTION: RAD - Hip Left 2 View - 07/11/2018 6:50 pm CLINICAL HISTORY: PAIN History of fall, hip pain COMPARISON: Knee Left 3 View dated 07/11/2018 FINDINGS: Osteopenia is noted. Calcification of the acetabular labrum seen. Bony irregularity is not ed in the region of the greater trochanter superiorly. While this is probably chronic, is difficult t o exclude subtle fracture in this location. If the patient has difficulty with weight-bearing followu p MR imaging of left hip would be recommended.
--- NOTE | 2018-07-11 19:01 | RAD REPORT ---
EXAM DESCRIPTION: RAD - Knee Left 3 View - 07/11/2018 6:51 pm CLINICAL HISTORY: PAIN History of fall, pain COMPARISON: No comparisons FINDINGS: No acute fracture or dislocation seen. No significant joint effusion. Popliteal artery ath erosclerosis present. Mild chondrocalcinosis of both menisci seen.
--- NOTE | 2018-07-11 19:53 | RAD REPORT ---
EXAM DESCRIPTION: CT - Pelvis Wo Cont - 07/11/2018 7:41 pm CLINICAL HISTORY: fall, left hip pain COMPARISON: Spine Lumbar Wo Con dated 07/11/2018 TECHNIQUE: All CT scans are performed using dose optimization technique as appropriate and may inclu de automated exposure control or mA/KV adjustment according to patient size. FINDINGS: Lucency is seen in the greater trochanter of the proximal left femur compatible with a non displaced fracture. No dislocation evident. No underlying pathologic bone lesion. Elsewhere, no evidence acute fracture or dislocation is seen. No pelvic mass or hematoma is evident. The bones are diffusely osteopenic. IMPRESSION: Nondisplaced fracture involving the greater trochanter the proximal left femur.
--- NOTE | 2018-07-11 19:55 | RAD REPORT ---
EXAM DESCRIPTION: CT - Spine Lumbar Wo Con - 07/11/2018 7:41 pm CLINICAL HISTORY: Radiculopathy. fall;Pain COMPARISON: No comparisons TECHNIQUE: Axial noncontrast CT imaging of the lumbar spine was performed with coronal and sagittal re-formatted images. All CT scans are performed using dose optimization technique as appropriate and may include automated exposure control or mA/KV adjustment according to patient size. FINDINGS: No acute lumbar spine fracture seen. No aggressive marrow pattern or malalignment. The bon es are diffusely demineralized. Paraspinal tissues are normal in thickness. No paraspinal abscess or hematoma seen. Multilevel posterior laminectomy is present. Spinal hardware is noted at L2-3 and anteriorly L4. Heav y aortic atherosclerosis. IMPRESSION: No acute lumbar spine abnormality is seen.
[2018-07-11] MEDS ORDERED: HYDROCODONE/APAP 10/325 TAB ONE (21:03)
--- NOTE | 2018-07-11 21:31 | ER ---
Nurse's Notes [facility] Name: Bravo Lockett Age: 68 yrs Sex: Male : 1950 Arrival Date: 07/11/2018 Time: 16:52 Bed 5 Private MD: James Chow E Diagnosis: Nondisplaced fracture of greater trochanter of left femur Presentation: 07/11 17:43 Presenting complaint: Patient states: 'I fell last Sunday and I either broke my knee aj1 or my left hip, I walked around on it for several days, but then I went to get out of bed 2 days ago and I hit the floor again because it couldn't hold my weight" Patient reports pain to left hip and left knee. Transition of care: patient was not received from another setting of care. Onset of symptoms was June 2018. Risk Assessment: Do you want to hurt yourself or someone else? Patient reports no desire to harm self or others. Initial Sepsis Screen: Does the patient meet any 2 criteria? No. Patient's initial sepsis screen is negative. Does the patient have a suspected source of infection? No. Patient's initial sepsis screen is negative. Care prior to arrival: None. 17:43 Method Of Arrival: Wheelchair aj1 17:43 Acuity: AURELIO 3 aj1 Triage Assessment: 17:46 General: Appears in no apparent distress. uncomfortable, Behavior is calm, cooperative, aj1 appropriate for age. Pain: Complains of pain in left hip and left knee Pain currently is 10 out of 10 on a pain scale. Neuro: Level of Consciousness is awake, alert, obeys commands. Cardiovascular: Patient's skin is warm and dry. Respiratory: Airway is patent Respiratory effort is even, unlabored, Respiratory pattern is regular, symmetrical. Historical: - Allergies: 17:46 NKDA; aj1 - Home Meds: 19:19 Aspirin Oral [Active]; baclofen 20 mg Oral tab [Active]; Fish Oil Oral [Active]; lp1 Glucosamine Oral [Active]; Hyzaar Oral [Active]; losartan-hydrochlorothiazide 50-12.5 mg Oral tab [Active]; Magnesium Oxide Oral [Active]; meclizine 12.5 mg Oral tab [Active]; meclizine 25 mg Oral tab [Active]; Freedom 10-325 mg Oral tab [Active]; pantoprazole 40 mg Oral TbEC [Active]; Protonix Oral [Active]; Vitamin B-12 Oral [Active]; Vitamin B-6 Oral [Active]; Xanax Oral [Active]; - PMHx: 17:46 CAD; COPD; Diverticulitis; GERD; Hypertension; Hypomagnesemia; Myocardial infarction; aj1 Vertigo; - Immunization history:: Adult Immunizations up to date. - Social history:: Smoking status: . - Ebola Screening: : No symptoms or risks identified at this time. Screenin:54 Abuse screen: Denies threats or abuse. Denies injuries from another. Nutritional hb screening: No deficits noted. Tuberculosis screening: No symptoms or risk factors identified. Fall Risk None identified. Assessment: 18:54 General: Appears in no apparent distress. Behavior is calm, cooperative. Pain: Pain hb currently is 10 out of 10 on a pain scale. Neuro: Level of Consciousness is awake, alert, obeys commands, Oriented to person, place, time, situation. Cardiovascular: Capillary refill < 3 seconds Patient's skin is warm and dry. Respiratory: Airway is patent Respiratory effort is even, unlabored, Respiratory pattern is regular, symmetrical. GI: No signs and/or symptoms were reported involving the gastrointestinal system. : No signs and/or symptoms were reported regarding the genitourinary system. EENT: No signs and/or symptoms were reported regarding the EENT system. Derm: Skin is intact, is healthy with good turgor. Musculoskeletal: Reports left hip and knee pain. 19:14 Reassessment: Patient appears in no apparent distress at this time. Pain: Complains of lp1 pain in left hip Aggravated by increased activity, repositioning, weight bearing. Neuro: Level of Consciousness is awake, alert, obeys commands. Respiratory: Respiratory effort is even, unlabored. Derm: Skin is intact, Skin is dry, Skin is normal. 20:30 Reassessment: Patient appears in no apparent distress at this time. Patient and/or lp1 family updated on plan of care and expected duration. Pain level reassessed. Provider at bedside to discuss results with patient. 21:30 Reassessment: Patient appears in no apparent distress at this time. Patient up to lp1 bedside using urinal. Vital Signs: 17:46 BP 106 / 75; Pulse 78; Resp 18; Temp 98.0; Pulse Ox 100% on R/A; Weight 67.13 kg (R); aj1 Height 5 ft. 10 in. (177.80 cm) (R); Pain 10/10; 19:14 BP 177 / 85; Pulse 47; Resp 18; Pulse Ox 100% on R/A; Pain 6/10; lp1 20:30 BP 171 / 75; Pulse 56; Resp 18; Pulse Ox 100% on R/A; lp1 21:30 BP 179 / 78; Pulse 48; Resp 18; Pulse Ox 99% on R/A; lp1 17:46 Body Mass Index 21.24 (67.13 kg, 177.80 cm) aj1 ED Course: 16:52 Patient arrived in ED. as 16:53 James Chow MD is Private Physician. as 17:45 Triage completed. aj1 17:46 Arm band placed on Patient placed in waiting room, Patient notified of wait time. aj1 18:40 Camelia Wagner, RN is Primary Nurse. hb 18:51 XRAY Hip LEFT 2 view In Process Unspecified. EDMS 18:51 XRAY Knee LEFT 3 view In Process Unspecified. EDMS 18:54 Patient has correct armband on for positive identification. Bed in low position. Call hb light in reach. Side rails up X 1. 19:04 Mai Keen, NAM is Primary Nurse. lp1 19:07 Pedro Wolf PA is PHCP. cp 19:07 Jassi Arora MD is Attending Physician. cp 19:[address] via stretcher. lp1 19:42 CT completed. Patient tolerated procedure well. Patient moved back from CT. vm2 19:42 CT Pelvis wo Cont In Process Unspecified. EDMS 19:42 CT Lumbar Spine Wo Con In Process Unspecified. EDMS 19:48 Pedro Joseph MD is Attending Physician. cp 21:29 Rocky Huang MD is Referral Physician. cp 22:03 No provider procedures requiring assistance completed. Patient did not have IV access lp1 during this emergency room visit. Administered Medications: 20:55 Drug: HYDROcodone-acetaminophen 10 mg-325 mg 1 tabs Route: PO; lp1 22:03 Follow up: Response: Pain is decreased lp1 Outcome: 21:30 Discharge ordered by . cp 22:10 Discharged to home via wheelchair, with family. ak1 22:10 Condition: good 22:10 Discharge instructions given to patient, family, Instructed on discharge instructions, follow up and referral plans. medication usage, Demonstrated understanding of instructions, follow-up care, medications, Prescriptions given X 1. 22:10 Patient left the ED. ak1 Signatures: Dispatcher [employer] EDMS Donna Stearns RN RN aj1 Corinne Wilkinson Laura RN RN lp1 Barbie Pineda RN RN ak1 Pedro Wolf, Camelia Chen cp, NAM RN Olinda Rosario [facility]
--- NOTE | 2018-07-11 21:31 | EDPHYS ---
Physician Documentation [facility] Name: rBavo Lockett Age: 68 yrs Sex: Male : 1950 Arrival Date: 07/11/2018 Time: 16:52 Bed 5 Private MD: James Chow E ED Physician Pedro Joseph HPI: 07/11 19:20 This 68 yrs old Male presents to ER via Wheelchair with complaints of Hip cp Pain. 19:20 The patient or guardian reports an injury, pain. sustained from a fall, while walking, cp There is no obvious deformity, The patient is able to bear partial body weight. The complaints affect the left hip. Onset: The symptoms/episode began/occurred last week. Associated signs and symptoms: Loss of consciousness: the patient experienced no loss of consciousness, Pertinent negatives: abdominal pain, chest pain, dizziness, fever, headache, weakness. Severity of symptoms: in the emergency department the symptoms are actually worse, mildly. Historical: - Allergies: 17:46 NKDA; aj1 - Home Meds: 19:19 Aspirin Oral [Active]; baclofen 20 mg Oral tab [Active]; Fish Oil Oral [Active]; lp1 Glucosamine Oral [Active]; Hyzaar Oral [Active]; losartan-hydrochlorothiazide 50-12.5 mg Oral tab [Active]; Magnesium Oxide Oral [Active]; meclizine 12.5 mg Oral tab [Active]; meclizine 25 mg Oral tab [Active]; Gilbert 10-325 mg Oral tab [Active]; pantoprazole 40 mg Oral TbEC [Active]; Protonix Oral [Active]; Vitamin B-12 Oral [Active]; Vitamin B-6 Oral [Active]; Xanax Oral [Active]; - PMHx: 17:46 CAD; COPD; Diverticulitis; GERD; Hypertension; Hypomagnesemia; Myocardial infarction; aj1 Vertigo; - Immunization history:: Adult Immunizations up to date. - Social history:: Smoking status: . - Ebola Screening: : No symptoms or risks identified at this time. ROS: 19:30 Constitutional: Negative for body aches, chills, fever, poor PO intake. cp 19:30 Eyes: Negative for injury, pain, redness, and discharge. cp 19:30 ENT: Negative for drainage from ear(s), ear pain, sore throat, difficulty swallowing, difficulty handling secretions. 19:30 Neck: Negative for pain with movement, pain at rest, stiffness. 19:30 Cardiovascular: Negative for chest pain, edema, palpitations. 19:30 Respiratory: Negative for cough, shortness of breath, wheezing. 19:30 Abdomen/GI: Negative for abdominal pain, nausea, vomiting, and diarrhea. 19:30 Back: Negative for decreased range of motion. 19:30 MS/extremity: Positive for pain, tenderness, of the left hip and left knee, Negative for deformity, paresthesias. 19:30 Skin: Positive for rash, of the back. 19:30 Neuro: Negative for altered mental status, dizziness, headache, loss of consciousness, visual changes. 19:30 All other systems are negative. Exam: 19:45 Constitutional: The patient appears in no acute distress, alert, awake, cp non-diaphoretic, non-toxic, well developed, well nourished. 19:45 Head/Face: Normocephalic, atraumatic. cp 19:45 Eyes: Periorbital structures: appear normal, Conjunctiva: normal, no exudate, no injection, Sclera: no appreciated abnormality, Lids and lashes: appear normal, bilaterally. 19:45 ENT: External ear(s): are unremarkable, Nose: is normal, Mouth: Lips: moist, Posterior pharynx: Airway: no evidence of obstruction, patent. 19:45 Neck: ROM/movement: is normal, is supple, without pain, no range of motions limitations, no nuchal rigidity. 19:45 Chest/axilla: Inspection: normal, Palpation: is normal, no crepitus, no tenderness. 19:45 Cardiovascular: Rate: bradycardic, Rhythm: regular, Edema: is not appreciated, JVD: is not appreciated. 19:45 Respiratory: the patient does not display signs of respiratory distress, Respirations: normal, no use of accessory muscles, no retractions, no splinting, no tachypnea, labored breathing, is not present, Breath sounds: are clear throughout, no decreased breath sounds, no stridor, no wheezing. 19:45 Abdomen/GI: Inspection: abdomen appears normal, Palpation: abdomen is soft and non-tender, in all quadrants. 19:45 Back: pain, that is mild, of the lumbar area, ROM is normal. 19:45 Musculoskeletal/extremity: Extremities: grossly normal except: noted in the left hip: pain, tenderness, There is no evidence of deformity, noted in the left knee: pain. 19:45 Skin: cellulitis, is not appreciated. 19:45 Neuro: Orientation: to person, place \T\ time. Mentation: is normal, Cerebellar function: is grossly normal, Motor: moves all fours, strength is normal, Sensation: is normal. Vital Signs: 17:46 BP 106 / 75; Pulse 78; Resp 18; Temp 98.0; Pulse Ox 100% on R/A; Weight 67.13 kg (R); aj1 Height 5 ft. 10 in. (177.80 cm) (R); Pain 10/10; 19:14 BP 177 / 85; Pulse 47; Resp 18; Pulse Ox 100% on R/A; Pain 6/10; lp1 20:30 BP 171 / 75; Pulse 56; Resp 18; Pulse Ox 100% on R/A; lp1 21:30 BP 179 / 78; Pulse 48; Resp 18; Pulse Ox 99% on R/A; lp1 17:46 Body Mass Index 21.24 (67.13 kg, 177.80 cm) aj1 MDM: 19:07 Patient medically screened. cp 21:20 Physician consultation: Darren Godfrey MD was contacted at 21:15, regarding cp admission, patient's condition, recommends discharge to home and patient to use walker to assist with ambulation and outpatient ortho f/u. Patient has prescribed Gilbert for pain control. 21:30 Data reviewed: vital signs, nurses notes, lab test result(s), radiologic studies, CT cp scan, plain films, I have discussed the patient's presentation/case with the attending Emergency Department Physician; and as a result, I will discharge patient. 21:30 Differential diagnosis: hip fracture, intertrochanteric fracture, femoral neck cp fracture, femoral shaft fracture, lumbar spine fracture. Counseling: I had a detailed discussion with the patient and/or guardian regarding: the historical points, exam findings, and any diagnostic results supporting the discharge/admit diagnosis, radiology results, the need for outpatient follow up, a orthopedic surgeon, to return to the emergency department if symptoms worsen or persist or if there are any questions or concerns that arise at home. Response to treatment: the patient's symptoms have markedly improved after treatment, and as a result, I will discharge patient. 07/11 17:47 Order name: XRAY Hip LEFT 2 view; Complete Time: 20:06 aj 07/11 17:47 Order name: XRAY Knee LEFT 3 view; Complete Time: 20:06 aj1 07/11 19:14 Order name: CT Pelvis wo Cont; Complete Time: 20:06 cp 07/11 19:14 Order name: CT Lumbar Spine Wo Con; Complete Time: 20:06 cp Administered Medications: 20:55 Drug: HYDROcodone-acetaminophen 10 mg-325 mg 1 tabs Route: PO; lp1 22:03 Follow up: Response: Pain is decreased lp1 Disposition: 07/11/18 21:30 Discharged to Home. Impression: Nondisplaced fracture of greater trochanter of left femur. - Condition is Stable. - Discharge Instructions: Hip Fracture. - Prescriptions for Mobic 7.5 mg Oral Tablet - take 1 tablet by ORAL route once daily take with food; 20 tablet. - Medication Reconciliation Form, Thank You Letter, Antibiotic Education, Prescription Opioid Use form. - Follow up: Rocky Huang MD; When: 2 - 3 days; Reason: Recheck today's complaints. - Problem is new. - Symptoms have improved. Addendum: 07/16/2018 10:51 Co-signature as Attending Physician, Pedro Joseph MD I agree with the assessment and c moraes plan of care. Signatures: Dispatcher [employer] EDDonna Grace RN RN aj1 Pedro Joseph MD MD cha Pena, Laura RN RN lp1 Barbie Pineda RN RN ak1 Pedro Wolf PA PA cp Baxter, Heather, NAM RN Corrections: (The following items were deleted from the chart) 07/11 22:10 21:30 07/11/2018 21:30 Discharged to Home. Impression: Nondisplaced fracture of greater ak1 trochanter of left femur. Condition is Stable. Forms are Medication Reconciliation Form, Thank You Letter, Antibiotic Education, Prescription Opioid Use. Follow up: Rocky Huang; When: 2 - 3 days; Reason: Recheck today's complaints. Problem is new. Symptoms have improved. cp
[2018-07-11 22:15] VITALS: TEMP 98
[2018-07-11 22:19] VITALS: BP 179/78; O2SAT 99
== END 2018-07-11 22:10 | disposition home or self-care (01) ==
LOC: ER 16:50
DX: S72.115A Nondisplaced fracture of greater trochanter of left femur, initial encounter for closed fracture (principal); W01.0XXA Fall on same level from slipping, tripping and stumbling without subsequent striking against object, initial encounter; Y93.01 Activity, walking, marching and hiking; J44.9 Chronic obstructive pulmonary disease, unspecified; K21.9 Gastro-esophageal reflux disease without esophagitis; I10 Essential (primary) hypertension; I25.2 Old myocardial infarction; Z79.82 Long term (current) use of aspirin
CPT/HCPCS: 72131; 72192; 99284

== ENCOUNTER 2018-08-09 14:42 | Inpatient (IN) | payer OTHER ==
--- OUTSIDE RECORDS SUMMARY | 2018-08-09 14:45 | XMS REPORT ---
:1950 [facility] Address [address] [place] [address] Dr. Cisse [address] [place] [id number] Care Team Providers Name Role Phone Unavailable Unavailable Unavailable Problems This patient has no known problems. Allergies, Adverse Reactions, Alerts This patient has no known allergies or adverse reactions. Medications This patient has no known medications. Encounters Start End Encounter Admission Attending Care Care Encounter Date/Time Date/Time Type Type Clinicians Facility Department ID 2018-07-03 2018-07-03 Outpatient [facility] CAR [id number] 09:05:00 09:05:00
--- OUTSIDE RECORDS SUMMARY | 2018-08-09 14:45 | XMS REPORT | Clinical Summary ---
:1950 Author Organization [facility] Address [address] [place] [address] Care Team Providers Name Role Phone James [...] Team Description 09/20/2017 Emergency Emergency Medicine after 08/08/2017 Social History Tobacco Use Types Packs/Day Years [...] INFLUENZA VACCINE 10/17/2018 Implants Implanted Type Area Security Systems Specialist Device Shelf Model / Identifier Expiration Serial / Date Lot System Reveal Linq W/Monitors - [id number] - [id number] Cardiovascular Left: [employer] 07/30/2016 LINQSYS / Implanted: Qty: 1 on 09/22/2015 by Miley Gonsalez Jr., MD Implants Chest CARDIAC RHYTHM [id number] / Wall DISEASE MGMT Results Not on fileafter 08/08/2017 Insurance Payer Benefit Plan / Subscriber ID Effective Phone Address Type Group Dates CIGNA CIGNA xxxxxxxx 2015-Pres [facility] ent MCR ADV MEDICARE MEDICARE PART A xxxxxxxxxx 2015-Pre [place], [place] Medicare AND B sent Advance Directives Patient has advance care planning documents on file. For more information, please contact:Anirudh Otero[address] [place] [address]
--- NOTE | 2018-08-09 15:47 | RAD REPORT ---
EXAM DESCRIPTION: CT - [id number] - 08/09/2018 3:29 pm CLINICAL HISTORY: Trauma, head and neck injury. fall, scalp laceration COMPARISON: C Spine Wo Con dated 11/12/2015 TECHNIQUE: Axial 5 mm thick images of the head were obtained. Axial 2 mm thick images of the cervical spine were obtained with sagittal and coronal reconstruction images generated and reviewed. All CT scans are performed using dose optimization technique as appropriate and may include automated exposure control or mA/KV adjustment according to patient size. FINDINGS: CT HEAD WITHOUT CONTRAST: No acute hemorrhage, hydrocephalus or extra-axial collection is identified.Moderate generalized brain atrophy is present with moderate periventricular and deep white matter chronic microvascular ischemi c changes.No areas of brain edema or midline shift. The paranasal sinuses and mastoids are clear.The calvarium is intact. CT CERVICAL SPINE WITHOUT CONTRAST: No fracture or subluxation.Multilevel degenerative changes are present throughout the cervical spine. Anterior fusion is seen spanning C5-7.No prevertebral soft tissues swelling is identified. IMPRESSION: No acute intracranial or cervical spine findings.
[2018-08-09] MEDS ORDERED: LIDOCAINE 1% MPF 5 ML VIAL ONE (15:51)
[2018-08-09] MEDS ORDERED: LIDOCAINE 1% W/EPI 1:100,000 MDV 50 ML VIAL ONE (15:53)
[2018-08-09 16:14] LABS: Absolute Lymphocytes (CBC) 0.3 K/uL (0.7-4.9); Absolute Neutrophil 13.1 K/uL (1.8-8.0); Basophils % 0.1 % (0-1.3); Hematocrit 36.4 % (39.6-49.0); Lymphocytes % 1.9 % (15.3-44.8); MPV 7.8 fL (7.6-11.3); RBC Red Blood Cell Count 3.83 M/uL (4.33-5.43)
[2018-08-09 16:16] LABS: Protime INR 0.9
[2018-08-09 16:32] LABS: ALT/SGPT 44 U/L (12-78); AST/SGOT 76 U/L (15-37); Albumin 3.9 g/dL (3.4-5.0); Alkaline Phosphatase 101 U/L (45-117); BUN Blood Urea Nitrogen 7 mg/dL (7-18); Bicarbonate 23 mmol/L (21-32); Bilirubin Direct 0.3 mg/dL (0-0.2); Bilirubin Total 0.7 mg/dL (0.2-1.0); Glucose Level 128 mg/dL (74-106); Magnesium 1.6 mg/dL (1.8-2.4); Potassium 3.7 mmol/L (3.5-5.1); Protein, Total 7.7 g/dL (6.4-8.2); Troponin (Emerg Dept Use Only) < 0.02 ng/mL (0.0-0.045)
[2018-08-09 16:34] LABS: Sodium Level 112 mmol/L (136-145)
--- NOTE | 2018-08-09 16:42 | EKG ---
Test Date: 2018-08-09 Test Time: 15:37:31 Plug Cutter: TRINH MEASUREMENT RESULTS: Intervals: Rate: 72 NM: 164 QRSD: 94 QT: 394 QTc: 431 [place]: P: 68 NM: 164 QRS: 73 T: 68 INTERPRETIVE STATEMENTS: Normal sinus rhythm Right atrial enlargement Borderline ECG Compared to ECG 05/30/2018 13:44:22 Atrial abnormality now present Sinus bradycardia no longer present Electronically Signed On 08-09-18 16:42:22 CDT by Juan Nelson
[2018-08-09 16:44] LABS: Platelet Estimate ADEQ; Urine White Blood Cell Casts OK
[2018-08-09 16:45] LABS: Blood Morphology Comment NOT SEEN (NOT SEEN)
[2018-08-09] MEDS ORDERED: THIAMINE 200 MG/2 ML INJ ONE (17:03)
[2018-08-09] MEDS ORDERED: NA CHLORIDE 0.9% 100 ML IV ONE (17:03)
[2018-08-09] MEDS ORDERED: MAGNESIUM SULFATE 1 gm IVPB 1 GM/100 ML BAG IV ONE (17:10)
--- NOTE | 2018-08-09 17:15 | ER ---
Nurse's Notes [facility] Name: Bravo Lockett Age: 68 yrs Sex: Male : 1950 Arrival Date: 08/09/2018 Time: 14:49 Bed 3 Private MD: Diagnosis: Hyponatremia;Altered mental status, unspecified Presentation: 08/09 14:49 Presenting complaint: EMS states: Pt fell this morning and this afternoon from a ss standing position after becoming dizzy. Room mate called 911 because patient was stumbling around. Initially, patient refused to come to the ER for evaluation, but was coaxed by PD to get checked out because he believed the year was 1988. Roommate was reportedly a poor historian. EMS obtained information that patient has a history of alcoholism, but patient reports his last drink was 2 days ago. Superficial laceration (3 inch) noted to L parietal area and redness noted to forehead. PT is currently A\\T\\O x2. Transition of care: patient was not received from another setting of care. Onset of symptoms was August 09, 2018. Risk Assessment: Do you want to hurt yourself or someone else? Patient reports no desire to harm self or others. Initial Sepsis Screen: Does the patient meet any 2 criteria? No. Patient's initial sepsis screen is negative. Does the patient have a suspected source of infection? No. Patient's initial sepsis screen is negative. Note Pt denies LOC, reports that feels perfectly fine other than his chronic pain, and states that he took a NORCO just prior to being transported to ER. Care prior to arrival: None. 14:49 Method Of Arrival: EMS: [facility] 14:49 Acuity: AURELIO 2 14:49 Mechanism of Injury: Fall from standing position. Trauma event details: Injury occurred ss in the [facility], Injury occurred: at home. Trauma Activation: Alert Physician: ED Physician; Name: ; Notified At: ; Arrived At: Physician: General Surgeon; Name: ; Notified At: ; Arrived At: Physician: Radiology; Name: ; Notified At: ; Arrived At: Physician: Respiratory; Name: ; Notified At: ; Arrived At: Physician: Lab; Name: ; Notified At: ; Arrived At: Historical: - Allergies: 14:54 NKDA; ss - Home Meds: 16:41 losartan-hydrochlorothiazide 50-12.5 mg Oral tab [Active]; pantoprazole 40 mg Oral TbEC aj [Active]; [place] 10-325 mg Oral tab [Active]; meclizine 12.5 mg oral tab [Active]; fluoxetine 20 mg Oral cap 1 cap once daily [Active]; - PMHx: 14:54 CAD; COPD; Hypertension; Myocardial infarction; Hypomagnesemia; GERD; Vertigo; ss Diverticulitis; - Immunization history:: Adult Immunizations up to date. - Social history:: Smoking status: Patient uses tobacco products, smokes two packs cigarettes per day. - Immunization history: Last tetanus immunization: unknown. - Ebola Screening: : Patient denies exposure to infectious person Patient denies travel to an Ebola-affected area in the 21 days before illness onset. Screenin:49 Abuse screen: Denies threats or abuse. Denies injuries from another. Tuberculosis ss screening: Never had TB. 15:25 Nutritional screening: No deficits noted. Fall Risk Fall in past 12 months (25 points). rv Secondary diagnosis (15 points) impaired mobility, No IV (0 pts). Ambulatory Aid- None/Bed Rest/Nurse Assist (0 pts). Gait- Impaired (20 pts.). Mental Status- Overestimates/Forgets Limitations (15 pts.). Total Torres Fall Scale indicates High Risk Score (45 or more points). Side Rails Up X 2 Placed Close to Nursing Station Frequent Obs/Assessments Occuring As available patient and family educated on Fall Prevention Program and Strategies. Primary Survey: 14:49 NO uncontrolled hemorrhage observed. Breathing/Chest: Respiratory pattern: regular, ss Respiratory effort: spontaneous, unlabored, Breath sounds: clear, bilaterally. Circulation: Skin color: pink. Disability Alert. Exposure/Environment: There is no evidence of uncontrolled external bleeding. 19:10 Reassessment Airway Airway Patent Breathing/Chest Respiratory pattern Regular tl2 Respiratory effort Spontaneous Unlabored Circulation Color Rembert Temperature Warm Dry Disability Alert. Assessment: 14:49 General: Appears comfortable, Behavior is calm, cooperative, Denies fever, feeling ill, ss fatigue, chills. General: Appears unkempt. Neuro: Level of Consciousness is awake, alert, obeys commands, Oriented to person, place, situation. EENT: Oral mucosa is moist. Throat is clear. Respiratory: Airway is patent Respiratory effort is even, unlabored. GI: Patient currently denies diarrhea, nausea, vomiting. Derm: Derm: redness noted to forehead, superficial laceration noted to L parietal area. Musculoskeletal: 15:20 Pain: Complains of pain in left side of the head. Cardiovascular: Patient's skin is rv warm and dry. : No signs and/or symptoms were reported regarding the genitourinary system. Derm: Wound noted head and right elbow. 15:26 Reassessment: taken down to CT scan. rv 18:53 Reassessment: Patient appears in no apparent distress at this time. No changes from rv previously documented assessment. Patient and/or family updated on plan of care and expected duration. Pain level reassessed. Patient is alert, oriented x 3, equal unlabored respirations, skin warm/dry/pink. Patient denies pain at this time. 19:10 Reassessment: 3% NS infusing at 80mL/hour. General: Appears in no apparent distress. tl2 comfortable, Behavior is calm, cooperative, Denies fever, feeling ill. Pain: Denies pain. Neuro: Level of Consciousness is awake, alert, obeys commands, Oriented to person, place, situation. Cardiovascular: Denies chest pain, Patient's skin is warm and dry. Respiratory: Airway is patent Respiratory effort is even, unlabored. GI: No signs and/or symptoms were reported involving the gastrointestinal system. : No signs and/or symptoms were reported regarding the genitourinary system. Derm: Skin is pink, warm \\T\\ dry. laceration repair to left side of forehead. No oozing or bleeding noted. Musculoskeletal: Circulation, motion, and sensation intact. 19:21 Reassessment: day nurse gave report and stated that laceration had been repaired. tl2 Lidocaine not documented as administered in MAY. I did not administer lidocaine and will leave documented as prepared. 19:50 Reassessment: pt out to MRI. tl2 21:00 Reassessment: Patient appears in no apparent distress at this time. Patient and/or tl2 family updated on plan of care and expected duration. Pain level reassessed. Patient denies pain at this time. 22:04 Reassessment: ICU nurse at bedside to transport pt to ICU, accompanied by tech. tl2 Vital Signs: 14:54 BP 144 / 88; Pulse 82; Resp 17; Temp 98.4(TE); Pulse Ox 99% on R/A; Weight 67.13 kg; ss Height 5 ft. 9 in. (175.26 cm); Pain 10/10; 16:42 BP 160 / 82; Pulse 72; Resp 26; Pulse Ox 100% on R/A; aj 18:00 BP 141 / 68; Pulse 84; Resp 19; Temp 98.4; Pulse Ox 98% ; rv 22:04 BP 110 / 77; Pulse 74; Resp 20; Pulse Ox 98% on R/A; tl2 14:54 Body Mass Index 21.86 (67.13 kg, 175.26 cm) ss 14:54 Patient denies new pain, but states his chronic pain is a 10/10, and is awaiting for ss his NORCO to "kick in" [place] Coma Score: 14:49 Eye Response: spontaneous(4). Verbal Response: confused(4). Motor Response: obeys ss commands(6). Total: 14. Trauma Score (Adult): 14:49 Eye Response: spontaneous(1); Verbal Response: confused(1); Motor Response: obeys ss commands(2); Systolic BP: > 89 mm Hg(4); Respiratory Rate: 10 to 29 per min(4); [place] Score: 14; Trauma Score: 12 ED Course: 14:49 Patient arrived in ED. ss 14:49 Patient has correct armband on for positive identification. Bed in low position. Call ss light in reach. Side rails up X 1. Patient maintains SpO2 saturation greater than 95% on room air. Pulse ox on. NIBP on. 14:49 Patient maintains SpO2 saturation greater than 95% on room air. ss 14:53 Triage completed. ss 14:54 Allen Escobar, NAM is Primary Nurse. rv 14:54 Arm band placed on right wrist. ss 15:15 Pedro Wolf PA is PHCP. cp 15:15 Pedro Joseph MD is Attending Physician. cp 15:23 Wound care: to laceration located on head was cleaned with Hibiclens, dressed with rv 4X4s, Patient tolerated well. Wound care: to abrasion, located on right elbow was cleaned with Hibiclens, dressed with Neosporin, 4X4s, Patient tolerated well. 15:26 Thermoregulation: warm blanket given to patient. rv 15:30 CT Head C Spine In Process Unspecified. EDMS 15:40 EKG done, by entry level installation technician. reviewed by Pedro GANN. sm3 17:14 Karlene Zacarias MD is Hospitalizing Provider. cp 17:41 XRAY Chest (1 view) In Process Unspecified. EDMS 18:00 Assisted provider with central line placement. Set up central line tray. Triple lumen rv line placed in right femoral. Line placed by Pedro GANN Placement verified by blood return, Dressed with Tegaderm, Blood was collected. Patient tolerated well. Was handwashing/sanitizing done immediately prior to procedure? Yes. Was the site allowed to dry? Was local anesthetic and/or sedation utilized? Yes. During the procedure, did the Practitioner(s) maintain a sterile field? Yes. Were unused ports clamped during insertion? Yes. Was blood aspirated from each lumen? Yes. After the procedure, did the Practitioner(s) clean the site and apply a sterile dressing? Yes. 20:23 MRA Head Wo Cont In Process Unspecified. EDMS 20:23 Brain W/Wo Cont In Process Unspecified. EDMS 20:23 MRA Neck W/Wo Cont In Process Unspecified. EDMS 21:49 Patient admitted, IV remains in place. tl2 Administered Medications: 16:50 Drug: Thiamine 100 mg Route: IV; Rate: bolus; Site: right forearm; aj 17:02 Drug: Magnesium Sulfate 1 grams Route: IVPB; Infused Over: 1 hrs; Site: right forearm; aj 18:00 Follow up: Response: No adverse reaction; IV Status: Completed infusion; IV Intake: rv 100ml 17:12 CANCELLED (Physician Discretion): NS 3% 550 ml IV at 25 ml/hr continuous cp 18:53 Dru% NS 240 ml Route: IV; Rate: 80 ml/hr; Site: right femoral; rv 22:02 Follow up: IV Status: Infusion continued upon admission tl2 Intake: 18:00 IV: 100ml; Total: 100ml. rv 22:01 IV: 200ml (IV Fluid); Total: 300ml. tl2 Outcome: 17:15 Decision to Hospitalize by Provider. cp 21:59 Admitted to ICU accompanied by nurse, accompanied by rachel, via stretcher, room 6, on tl2 monitor, with chart, Report called to NAM Cisneros 21:59 Condition: stable 21:59 Instructed on the need for admit. 22:01 Patient's length of stay in the Emergency Department was greater than 2 hours. awaiting tl2 MRI resultsPatient's length of stay extended due to 22:06 Patient left the ED. tl2 Signatures: Dispatcher [employer] EDLisa Palacio RN RN aj Smirch, Shelby, RN RN ss Pedro Wolf PA PA cp Knox, Taylor, RN RN tl2 Renée Tena 3 Allen Escobar RN RN rv
--- NOTE | 2018-08-09 17:16 | EDPHYS ---
Physician Documentation [facility] Name: Bravo Lockett Age: 68 yrs Sex: Male : 1950 Arrival Date: 08/09/2018 Time: 14:49 Bed 3 Private MD: ED Physician Pedro Joseph HPI: 08/09 15:27 This 68 yrs old Male presents to ER via EMS with complaints of fall. cp 15:27 Details of fall: The patient fell from an upright position, while walking. Onset: The cp symptoms/episode began/occurred this morning, at 10:00. Associated injuries: The patient sustained injury to the head, laceration, of the left temporal area. Historical: - Allergies: 14:54 NKDA; ss - Home Meds: 16:41 losartan-hydrochlorothiazide 50-12.5 mg Oral tab [Active]; pantoprazole 40 mg Oral TbEC aj [Active]; Letona 10-325 mg Oral tab [Active]; meclizine 12.5 mg oral tab [Active]; fluoxetine 20 mg Oral cap 1 cap once daily [Active]; - PMHx: 14:54 CAD; COPD; Hypertension; Myocardial infarction; Hypomagnesemia; GERD; Vertigo; ss Diverticulitis; - Immunization history:: Adult Immunizations up to date. - Social history:: Smoking status: Patient uses tobacco products, smokes two packs cigarettes per day. - Immunization history: Last tetanus immunization: unknown. - Ebola Screening: : Patient denies exposure to infectious person Patient denies travel to an Ebola-affected area in the 21 days before illness onset. ROS: 15:30 Constitutional: Negative for body aches, chills, fever, poor PO intake. cp 15:30 Eyes: Negative for injury, pain, redness, and discharge. cp 15:30 ENT: Negative for drainage from ear(s), ear pain, sore throat, difficulty swallowing, difficulty handling secretions. 15:30 Neck: Negative for pain with movement, pain at rest, stiffness. 15:30 Cardiovascular: Negative for chest pain. 15:30 Respiratory: Negative for cough, shortness of breath, wheezing. 15:30 Abdomen/GI: Negative for abdominal pain, nausea, vomiting, and diarrhea, constipation, black/tarry stool, rectal bleeding. 15:30 Back: Negative for pain at rest, pain with movement, radiated pain. 15:30 MS/extremity: Negative for injury or acute deformity. 15:30 Skin: Positive for laceration(s), of the left temporal area, Negative for rash. 15:30 Neuro: Positive for altered mental status, Negative for headache. 15:30 All other systems are negative. Exam: 15:35 Constitutional: The patient appears in no acute distress, alert, awake, comfortable, cp non-diaphoretic, non-toxic, well developed, well nourished. 15:35 Head/face: Noted is a laceration(s), that is deep, that is linear, 3 cm(s), of the cp left temporal area. 15:35 Eyes: Periorbital structures: appear normal, Pupils: equal, round, and reactive to light and accomodation, Extraocular movements: intact throughout, Conjunctiva: normal, no exudate, no injection, Sclera: no appreciated abnormality, Lids and lashes: appear normal, bilaterally. 15:35 ENT: External ear(s): are unremarkable, Ear canal(s): are normal, clear, TM's: bulging, is not appreciated, bilaterally, dullness, bilaterally, erythema, is not appreciated, bilaterally, Nose: is normal, Mouth: Lips: moist, Oral mucosa: pink and intact, moist, Posterior pharynx: is normal, airway is patent, no erythema, no exudate. 15:35 Neck: C-spine: vertebral tenderness, is not appreciated, crepitus, is not appreciated. 15:35 Chest/axilla: Inspection: normal, Palpation: is normal, no crepitus, no tenderness. 15:35 Cardiovascular: Rate: normal, Rhythm: regular, Edema: is not appreciated, JVD: is not appreciated. 15:35 Respiratory: the patient does not display signs of respiratory distress, Respirations: normal, no use of accessory muscles, no retractions, no splinting, no tachypnea, labored breathing, is not present, Breath sounds: are clear throughout, no decreased breath sounds, no stridor, no wheezing. 15:35 Abdomen/GI: Inspection: scar(s), are noted in the midline lower abdomen, Bowel sounds: active, all quadrants, Palpation: abdomen is soft and non-tender, in all quadrants, rebound tenderness, is not appreciated, voluntary guarding, is not appreciated, involuntary guarding, is not appreciated. 15:35 Back: pain, is absent, ROM is normal. 15:35 Neuro: Orientation: to person, situation, Not oriented to time, Mentation: able to follow commands, slow to respond, Cerebellar function: is grossly normal, Motor: moves all fours, strength is normal. 15:43 ECG was reviewed by the Attending Physician. Vital Signs: 14:54 BP 144 / 88; Pulse 82; Resp 17; Temp 98.4(TE); Pulse Ox 99% on R/A; Weight 67.13 kg; ss Height 5 ft. 9 in. (175.26 cm); Pain 10/10; 16:42 BP 160 / 82; Pulse 72; Resp 26; Pulse Ox 100% on R/A; aj 18:00 BP 141 / 68; Pulse 84; Resp 19; Temp 98.4; Pulse Ox 98% ; rv 22:04 BP 110 / 77; Pulse 74; Resp 20; Pulse Ox 98% on R/A; tl2 14:54 Body Mass Index 21.86 (67.13 kg, 175.26 cm) 14:54 Patient denies new pain, but states his chronic pain is a 10/10, and is awaiting for ss his NORCO to "kick in" Chaz Coma Score: 14:49 Eye Response: spontaneous(4). Verbal Response: confused(4). Motor Response: obeys ss commands(6). Total: 14. Trauma Score (Adult): 14:49 Eye Response: spontaneous(1); Verbal Response: confused(1); Motor Response: obeys ss commands(2); Systolic BP: > 89 mm Hg(4); Respiratory Rate: 10 to 29 per min(4); [place] Score: 14; Trauma Score: 12 Procedures: 18:55 Central Line: the site was prepped with Betadine, in sterile fashion, a triple lumen cp catheter was inserted, in the right femoral vein, in 2 attempts. placement was verified, by blood return, the site was dressed with 4X4s, using sterile technique, the patient tolerated the procedure, well. MDM: 15:16 Patient medically screened. [facility] 17:15 Physician consultation: Karlene Zacarias MD was called at 17:05, was contacted at 17:05, cp regarding admission, to the ICU, patient's condition, would like further tests performed, MRI, prior to admission to r/o CVA. 17:20 Physician consultation: Tomer Al MD was called at 17:15, was contacted at 17:15, cp regarding consult, patient's condition, wants patient to be given NS 3% 80 mL/hr for 3 hours. Labs to be drawn uric acid, cortisol level, TSH, urine potassium level. 20:55 Data reviewed: vital signs, nurses notes, lab test result(s), EKG, radiologic studies, cp CT scan, MRI, plain films. 20:55 Test interpretation: by ED physician or midlevel provider: ECG. 08/09 15:18 Order name: Glucose, Ancillary Testing; Complete Time: 15:22 EDUT 08/09 15:22 Interpretation: GLUC,ANCIL 135; Reviewed. 08/09 15:23 Order name: Basic Metabolic Panel; Complete Time: 16:39 08/09 16:41 Interpretation: Normal except: NA 112; CL 77; GLUC 128; GFR 86. 08/09 15:23 Order name: CBC with Diff; Complete Time: 16:47 08/09 16:42 Interpretation: Abnormal: WBC 14.4; RBC 3.83; HGB 12.6; HCT 36.4; MCV 95.2; RDW 16.4; cp JEANNA% 91.0; LYM% 1.9; NEUT A 13.1; LYMA 0.3. 08/09 15:23 Order name: LFT's; Complete Time: 16:39 08/09 16:41 Interpretation: Normal except: AST 76; BILID 0.3; GLOB 3.8; A/G 1.0. 08/09 15:23 Order name: Magnesium; Complete Time: 16:39 08/09 16:41 Interpretation: Abnormal: MG 1.6. 08/09 15:23 Order name: PT-INR; Complete Time: 16:39 08/09 15:23 Order name: Troponin (emerg Dept Use Only); Complete Time: 16:39 08/09 15:23 Order name: ETOH Level; Complete Time: 17:00 08/09 17:00 Interpretation: Reviewed. 08/09 16:19 Order name: CBC Smear Scan; Complete Time: 16:47 EDUT 08/09 16:38 Order name: Urine Osmolality cp 08/09 16:38 Order name: Osmolality, Serum; Complete Time: 20:51 cp 08/09 16:38 Order name: UDS cp 08/09 17:13 Order name: Urine Potassium Random cp 08/09 17:13 Order name: TSH; Complete Time: 20:51 cp 08/09 15:20 Order name: CT Head C Spine; Complete Time: 15:53 cp 08/09 15:53 Interpretation: Reviewed report. 08/09 15:23 Order name: EKG; Complete Time: 15:24 cp 08/09 15:23 Order name: Cardiac monitoring; Complete Time: 19:15 cp 08/09 16:52 Order name: XRAY Chest (1 view); Complete Time: 20:51 cp 08/09 17:13 Order name: Cortisol; Complete Time: 20:51 cp 08/09 19:36 Order name: MRA Head Wo Cont; Complete Time: 20:51 EDMS 08/09 19:36 Order name: Brain W/Wo Cont; Complete Time: 20:51 EDMS 08/09 19:36 Order name: MRA Neck W/Wo Cont; Complete Time: 20:51 EDMS 08/09 21:39 Order name: Basic Metabolic Panel EDMS 08/09 15:23 Order name: EKG - Nurse/Tech; Complete Time: 19:16 cp 08/09 15:23 Order name: IV Saline Lock; Complete Time: 19:16 cp 08/09 15:23 Order name: Labs collected and sent; Complete Time: 19:16 cp 08/09 15:23 Order name: O2 Per Protocol; Complete Time: 19:16 cp 08/09 15:23 Order name: O2 Sat Monitoring; Complete Time: 19:16 cp 08/09 15:27 Order name: Dressing - Wound; Complete Time: 19:15 cp 08/09 15:27 Order name: Gloves, Sterile; Complete Time: 19:15 cp 08/09 15:27 Order name: Setup Suture Tray; Complete Time: 19:15 cp 08/09 16:35 Order name: Orthostatics; Complete Time: 19:17 cp 08/09 16:38 Order name: Seizure Precautions; Complete Time: 16:52 cp 08/09 17:22 Order name: Central Line Kit; Complete Time: 19:14 cp EC:43 Rate is 72 beats/min. Rhythm is regular. CT interval is normal. QRS interval is normal. cp QT interval is normal. Interpreted by me. Reviewed by me. Administered Medications: 16:50 Drug: Thiamine 100 mg Route: IV; Rate: bolus; Site: right forearm; aj 17:02 Drug: Magnesium Sulfate 1 grams Route: IVPB; Infused Over: 1 hrs; Site: right forearm; aj 18:00 Follow up: Response: No adverse reaction; IV Status: Completed infusion; IV Intake: rv 100ml 17:12 CANCELLED (Physician Discretion): NS 3% 550 ml IV at 25 ml/hr continuous cp 18:53 Dru% NS 240 ml Route: IV; Rate: 80 ml/hr; Site: right femoral; rv 22:02 Follow up: IV Status: Infusion continued upon admission tl2 Disposition: 18:00 Chart complete. cp Disposition: 08/09/18 17:15 Hospitalization ordered by Karlene Zacarias for Inpatient Admission. Preliminary diagnosis are Hyponatremia, Altered mental status, unspecified. - Bed requested for Intensive Care Unit. - Status is Inpatient Admission. tl2 - Condition is Stable. - Problem is new. - Symptoms have improved. UTI on Admission? No Critical care time excluding procedures: 18:00 Critical care time: Bedside Care: 20 minutes, Consultation: 10 minutes, Family cp Intervention: 5 minutes. Total time: 35 minutes Addendum: 08/13/2018 08:44 Co-signature as Attending Physician, Pedro Joseph MD I agree with the assessment and c moraes plan of care. Signatures: Dispatcher [employer] EDUT Lisa Cortes RN RN aj Anderson, Corey, MD MD cha Chretien, Felicia, RN Robyn Stark RN RN ss Page, Corey, PA PA cp Knox, Taylor, RN RN tl2 Allen Escobar, RN RN rv Corrections: (The following items were deleted from the chart) 08/09 15:23 15:17 Head Brain Wo Cont+CT.RAD.BRZ ordered. EDMS EDMS 17:12 17:00 NS 3% 550 ml IV at 25 ml/hr continuous ordered. cp cp 19:14 17:16 [place] ordered. cp tl2 19:36 17:06 MR STROKE PROTOCOL+MRI.RAD.BRZ ordered. EDMS EDMS 21:37 16:51 Physician consultation: Vidal Deleon MD was called at 16:51, was contacted at 16:51, regarding consult, patient's condition, wants NS 3% started \\T\\25 mL/hr for next 24 hours and BNP every 6 hours, 21:52 17:15 Hospitalization Ordered by Karlene Zacarias MD for Inpatient Admission. Preliminary fc diagnosis is Hyponatremia; Altered mental status, unspecified. Bed requested for Intensive Care Unit. Status is Inpatient Admission. Condition is Stable. Problem is new. Symptoms have improved. UTI on Admission? No. cp 22:06 21:52 08/09/2018 17:15 Hospitalization Ordered by Karlene Zacarias MD for Inpatient tl2 Admission. Preliminary diagnosis is Hyponatremia; Altered mental status, unspecified. Bed requested for Intensive Care Unit. Status is Inpatient Admission. Condition is Stable. Problem is new. Symptoms have improved. UTI on Admission? No. fc
--- NOTE | 2018-08-09 17:58 | RAD REPORT ---
EXAM DESCRIPTION: RAD - Chest Single View - 08/09/2018 5:40 pm CLINICAL HISTORY: fall, AMS Chest pain. COMPARISON: No comparisonsChest Single View dated 05/30/2018; Chest Single View dated 04/18/2018; Ches t Single View dated 04/11/2018; Chest Single View dated 01/09/2018 FINDINGS: Portable technique limits examination quality. The lungs are grossly clear. The heart is normal in size. Sternotomy wires present. Cervical hardware plate is present. IMPRESSION: No acute intrathoracic process suspected.
[2018-08-09] MEDS: NA CHLORIDE 3% 500 ML IV SCH ×2 (18:00→21:00)
[2018-08-09] MEDS ORDERED: NS 0.9% VIAL 30 ML ONE (18:16)
[2018-08-09] MEDS ORDERED: NA CHLORIDE 3% 500 ML ONE (18:28)
--- NOTE | 2018-08-09 20:39 | RAD REPORT ---
EXAM DESCRIPTION: MRI - Brain W/Wo Cont - 08/09/2018 8:24 pm CLINICAL HISTORY: . Headache, drowsiness, fall with head injury COMPARISON: MRA Head Wo Cont dated 08/09/2018; Chest Single View dated 08/09/2018 TECHNIQUE: Multi-sequence, multiplanar MR imaging of the brain was performed with contrast. FINDINGS: No intracranial hemorrhage, hydrocephalus, or extra-axial fluid collection.Moderate conflu ent T2/FLAIR hyperintensity in the periventricular and deep white matter is present compatible with c hronic microvascular ischemic changes. No edema or shift of midline structures. No intracranial mass. DWI is negative for acute CVA. The midline structures are normally formed. Mastoid air cells and paranasal sinuses are clear. Post-contrast images show no abnormal enhancement to suggest tumor or infection. IMPRESSION: Negative for acute CVA or other acute intracranial abnormality. No pathologic post-contrast enhancement suspected.
--- NOTE | 2018-08-09 20:41 | RAD REPORT ---
EXAM DESCRIPTION: MRI - MRA Head Wo Cont - 08/09/2018 8:23 pm CLINICAL HISTORY: MENTAL STATUS CHANGE Headache, drowsiness, CVA symptomology COMPARISON: Head Brain Wo Cont dated 05/30/2018 FINDINGS: 3D noncontrast [id number] MR angiography of the [place] was performed. No aneurysm, flow-limiting stenosis or vascular malformation is seen. Forward flow seen in codominant vertebral arteries. The visualized dural venous sinuses appear patent. IMPRESSION: No significant flow abnormality of the [place] is identified.
--- NOTE | 2018-08-09 20:44 | RAD REPORT ---
EXAM DESCRIPTION: MRI - MRA Neck W/Wo Cont - 08/09/2018 8:24 pm CLINICAL HISTORY: . Headache, drowsiness, syncope COMPARISON: No comparisons FINDINGS: Contrast enhance 2D [id number] MR angiography of the neck vessels was performed. Left aortic arch is noted with a normal great vessel origin branching pattern. Both subclavian arteries and common carotid arteries are widely patent. The right carotid bulb shows moderate carotid narrowing estimated at 50% based on NASCET criteria. No significant left-sided carot id stenosis. Antegrade flow seen in both vertebral arteries. IMPRESSION: Moderate narrowing of the right carotid bulb is suspected, estimated at 50% based on JOANNE CET criteria.
[2018-08-09] MEDS ORDERED: ONDANSETRON 4 MG/2 ML VIAL IV PRN (21:33)
[2018-08-09] MEDS ORDERED: ALPRAZOLAM 1 MG TABLET PO PRN (21:37)
[2018-08-09] MEDS ORDERED: BACLOFEN 10 MG TAB PO PRN (21:37)
[2018-08-09] MEDS ORDERED: NA CHLORIDE 3% 500 ML IV SCH (22:00)
[2018-08-09] MEDS ORDERED: POTASSIUM 25 MEQ EFFERV TAB PO ONE (22:47)
[2018-08-09 23:55] LABS: Barbiturates NEGATIVE (NEGATIVE); Benzodiazepines NEGATIVE (NEGATIVE); Cocaine NEGATIVE (NEGATIVE); METHAMPHETAM NEGATIVE (NEGATIVE); Methadone NEGATIVE (NEGATIVE); Opiates POSITIVE (NEGATIVE); Phencyclidine NEGATIVE (NEGATIVE); THC Cannibis NEGATIVE (NEGATIVE)
[2018-08-10 00:13] LABS: BUN Blood Urea Nitrogen 7 mg/dL (7-18); Bicarbonate 23 mmol/L (21-32); Glucose Level 109 mg/dL (74-106); Potassium 3.4 mmol/L (3.5-5.1)
[2018-08-10 00:14] LABS: Sodium Level 116 mmol/L (136-145)
[2018-08-10] MEDS ORDERED: POTASSIUM 25 MEQ EFFERV TAB PO ONE ×2 (00:32→20:04)
[2018-08-10] MEDS ORDERED: NA CHLORIDE 3% 500 ML IV SCH ×2 (01:00→07:00)
[2018-08-10 05:25] LABS: BUN Blood Urea Nitrogen 7 mg/dL (7-18); Bicarbonate 23 mmol/L (21-32); Glucose Level 89 mg/dL (74-106); Magnesium 1.7 mg/dL (1.8-2.4); Phosphorus 2.2 mg/dL (2.5-4.9); Potassium 3.7 mmol/L (3.5-5.1); Sodium Level 121 mmol/L (136-145)
[2018-08-10] MEDS ORDERED: MAGNESIUM SULFATE 1 gm IVPB 1 GM/100 ML BAG IV ONE ×2 (05:31→16:45)
[2018-08-10] MEDS: PANTOPRAZOLE 40MG TABLET PO SCH (05:36)
[2018-08-10] MEDS ORDERED: POTASSIUM PHOS IN 0.9 % NACL 15 MMOL/250 ML BAG IV ONE ×2 (06:00→16:45)
--- NOTE | 2018-08-10 07:24 | P.HP ---
Certification for Inpatient Patient admitted to: Inpatient With expected LOS: >2 Midnights Patient will require the following post-hospital care: None Practitioner: I am a practitioner with admitting privileges, knowledge of patient current condition, hospital course, and medical plan of care. Services: Services provided to patient in accordance with Admission requirements found in Title 42 Section 412.3 of the Code of Federal Regulations Patient History Date of Service: 08/09/18 Reason for admission: s/p fall/syncope/parietal lac/hyponatremia/AMS/history History of Present Illness: Patient is a 68-year-old gentleman who came into the hospital with altered mentation. Patient had fallen earlier in the day any suffered a scalp laceration in the parietal area. He was confused after this and came into the ER as recommended by the police department. Patient was lethargic in the emergency room. His labs revealed he had severe hyponatremia. Patient has a history of alcohol abuse. He also is on hydrochlorothiazide. His initial sodium was 112. MRI was ordered. This is negative. This likely etiology for altered mentation is the hyponatremia. Will gradually correct sodium. Goal is 124 by tomorrow. The hyponatremia is multi factorial. Will continue with 3% sodium until his sodium goes greater than 125 and then we can switch. Will need to monitor his neuro status pre closely with neuro checks every 4-6 hr. If there is worsening then we may need to repeat imaging study. With patient's degree of hyponatremia, he will need to be monitored in the intensive care unit as he is on 3% sodium as well. Once we get him on 3% sodium then we can probably transfer him out of the ICU especially if his mentation is improved. Patient also needs to be monitored closely in the hospital because of the syncopal of event. He has significant cardiac disease. He could of had an arrhythmia. Will monitor him on telemetry. He does have a history of alcohol abuse. His last drink was a couple of days ago. Will need to monitor him for delirium tremens. Allergies No Known Allergies Allergy (Verified 08/09/18 23:59) Home Medications: Meclizine HCl 12.5 mg PO BID PRN 10/29/16 Losartan/Hydrochlorothiazide [Losartan-Hctz 100-12.5 mg Tab] 1 tab PO DAILY 07/04 Pantoprazole [Protonix Tab*] 40 mg PO DAILYAC #30 tab 08/22/17 Aspirin 1 tab PO DAILY 01/09/18 ALPRAZolam [Xanax*] 1 mg PO TID 08/10/18 Fluoxetine HCl [Prozac] 20 mg PO DAILY 08/10/18 Hydrocodone/Acetaminophen [Hydrocodone-Acetamin 7.5-325] 1 tab PO TID 08/10/18 - Past Medical/Surgical History Diabetic: No -: triple bypass -: hernia repair and partial removal of colon -: CAD -: htn -: mi -: diverticulutis -: bradycardia -: gerd -: insomnia -: alcoholism -: vertigo -: hernia repair -: partial removal of colon -: triple bypass -: back surgeries 9 total (fusions ) - Family History Father Medical History: Heart disease, Hypertension Mother Medical History: Hypertension, Lung disease, Seizures - Social History Smoking Status: Current every day smoker Alcohol use: Yes CD- Drugs: No Caffeine use: Yes Place of Residence: Home Review of Systems 10-point ROS is otherwise unremarkable Physical Examination - Vital Signs Temperature: 98.1 F Blood Pressure: 104/69 Pulse: 57 Respirations: 19 Pulse Ox (%): 100 - Physical Exam General: Alert, In no apparent distress, Oriented x1, Disheveled, Confused HEENT: PERRLA, Mucous membr. moist/pink, Other ( patient has hematoma/ laceration in the parietal area on the left), EOMI, Sclerae nonicteric Neck: Supple, 2+ carotid pulse no bruit, No LAD, Without JVD or thyroid abnormality Respiratory: Clear to auscultation bilaterally, Normal air movement Cardiovascular: Regular rate/rhythm, Normal S1 S2 Gastrointestinal: Normal bowel sounds, Soft and benign, Non-distended, No tenderness Musculoskeletal: No tenderness Integumentary: No rashes Neurological: Normal speech, Normal tone, Sensation intact, Cranial nerves 3-12 intact, Normal affect, Abnormal gait, Abnormal strength Lymphatics: No axilla or inguinal lymphadenopathy - Studies Laboratory Data (last 24 hrs) 08/09/18 16:07: PT 10.7, INR 0.90 08/09/18 16:07: WBC 14.4 H, Hgb 12.6 L, Hct 36.4 L, Plt Count 298 08/09/18 16:07: Sodium 112 L*, Potassium 3.7, BUN 7, Creatinine 0.88, Glucose 128 H, Magnesium 1.6 L, Total Bilirubin 0.7, AST 76 H, ALT 44, Alkaline Phosphatase 101 Assessment & Plan - Problems (Diagnosis) (1) Acute hyponatremia Current Visit: Yes Status: Acute (2) Status post fall Current Visit: Yes Status: Acute (3) Syncope Onset Date: 05/14/14 Current Visit: No Status: Acute Qualifiers: Syncope type: unspecified Qualified Code(s): R55 - Syncope and collapse (4) Acute metabolic encephalopathy Onset Date: 08/09/18 Current Visit: Yes Status: Acute (5) Alcohol abuse Onset Date: 08/09/18 Current Visit: No Status: Acute (6) Bradycardia Onset Date: 10/30/16 Current Visit: No Status: Chronic (7) CAD (coronary artery disease) of artery bypass graft Onset Date: 05/14/14 Current Visit: No Status: Chronic Qualifiers: [place] vs. transplanted heart: [place] heart Associated angina: with stable angina Qualified Code(s): I25.708 - Atherosclerosis of coronary artery bypass graft(s), unspecified, with other forms of angina pectoris - Plan Plan: 1. Patient will need close monitoring in ICU as on 3% saline. Will correct his sodium gradually and hopefully we can get it to about 124 mEq per dL in the morning. Will recheck basic metabolic profile every 6 hr. Encourage oral intake and will continue with neuro checks. Continue monitoring on telemetry for any arrhythmias. Will monitor his scalp laceration as well. He has continued to be altered and hopefully as a sodium corrects his mentation was slowly improve. 2. Monitor labs every 6 hr 3. Monitor cardiac status closely 4. May need to add Librium for DT prophylaxis but he is already kind of lethargic 5. GI and DVT prophylaxis Discharge Plan: Home Plan to discharge in: Greater than 2 days - Advance Directives Does patient have a Living Will: No Does patient have a Durable POA for Healthcare: No - Code Status/Comfort Care Code Status Assessed: Yes Code Status: Full Code Critical Care: No Time Spent Managing PTS Care (In Minutes): 50
--- NOTE | 2018-08-10 07:49 | P.PN ---
Subjective Date of Service: 08/10/18 Patient remains fairly removed. The nurse did give him and anxiolytics this evening. His sodium is improving. Will decrease his 3% saline. Hopefully will turn it off by the end of today. Overall, his labs are much better. Anticipate transfer to the floor in the next 24-48 hr. Review of Systems Unremarkable Physical Examination - Vital Signs Temperature: 98.1 F Blood Pressure: 104/69 Pulse: 57 Respirations: 19 Pulse Ox (%): 100 - Physical Exam General: Oriented x1, Confused HEENT: Other ( Scalp dressing intact) Respiratory: Clear to auscultation bilaterally, Normal air movement Cardiovascular: Normal pulses, Regular rate/rhythm, Normal S1 S2 - Studies Laboratory Data (last 24 hrs) 08/09/18 16:07: PT 10.7, INR 0.90 08/09/18 16:07: WBC 14.4 H, Hgb 12.6 L, Hct 36.4 L, Plt Count 298 08/09/18 16:07: Sodium 112 L*, Potassium 3.7, BUN 7, Creatinine 0.88, Glucose 128 H, Magnesium 1.6 L, Total Bilirubin 0.7, AST 76 H, ALT 44, Alkaline Phosphatase 101 Assessment & Plan - Problems (Diagnosis) (1) Acute hyponatremia Current Visit: Yes Status: Acute (2) Status post fall Current Visit: Yes Status: Acute (3) Syncope Onset Date: 05/14/14 Current Visit: No Status: Acute Qualifiers: Syncope type: unspecified Qualified Code(s): R55 - Syncope and collapse (4) Acute metabolic encephalopathy Onset Date: 08/09/18 Current Visit: Yes Status: Acute (5) Alcohol abuse Onset Date: 08/09/18 Current Visit: No Status: Acute (6) Bradycardia Onset Date: 10/30/16 Current Visit: No Status: Chronic (7) CAD (coronary artery disease) of artery bypass graft Onset Date: 05/14/14 Current Visit: No Status: Chronic Qualifiers: [place] vs. transplanted heart: [place] heart Associated angina: with stable angina Qualified Code(s): I25.708 - Atherosclerosis of coronary artery bypass graft(s), unspecified, with other forms of angina pectoris - Plan Plan: continue with current plan of care as mentioned below 1. Decrease 3% normal saline to 30 cc an hr. Continue monitoring BMP every 6 hr. Once greater than 125 then we will go ahead and roll changer to NS. Hopefully you wakes up and starts eating and drinking a little bit better today. Monitor him closely for delirium tremens and monitor his rhythm on telemetry because of the syncopal event. Discharge Plan: Home Plan to discharge in: 24 Hours - Advance Directives Does patient have a Living Will: No Does patient have a Durable POA for Healthcare: No - Code Status/Comfort Care Code Status: Full Code Critical Care: No Time Spent Managing PTS Care (In Minutes): 30
[2018-08-10] MEDS ORDERED: ASPIRIN 325 MG TAB PO SCH (09:00)
[2018-08-10] MEDS ORDERED: NA CHLORIDE 0.9% 1,000 ML IV SCH ×2 (11:00→17:00)
--- NOTE | 2018-08-10 11:35 | P.PN ---
Subjective Date of Service: 08/10/18 Chief Complaint: s/p fall/syncope/parietal lac/hyponatremia/AMS/history Patient seen and examined chart reviewed. This morning patient does appear to be lethargic. Was given the exam baclofen last night. Nurse at bedside states that patient has decreased urine output. Patient is currently on hypertonic saline. Review of Systems 10-point ROS is otherwise unremarkable Physical Examination - Vital Signs Temperature: 98.1 F Blood Pressure: 104/69 Pulse: 57 Respirations: 19 Pulse Ox (%): 100 - Physical Exam General: Oriented x1, Other (Lethargic) HEENT: Other (For left-sided scalp hematoma noted. Laceration has been repaired ) Neck: Supple, JVD not distended Respiratory: Normal air movement, Crackles/rales, Expiratory wheezes, Inspiratory wheezes Cardiovascular: Regular rate/rhythm, Normal S1 S2 Gastrointestinal: Normal bowel sounds Musculoskeletal: No tenderness Integumentary: No rashes Lymphatics: No axilla or inguinal lymphadenopathy - Studies Laboratory Data (last 24 hrs) 08/09/18 16:07: PT 10.7, INR 0.90 08/09/18 16:07: WBC 14.4 H, Hgb 12.6 L, Hct 36.4 L, Plt Count 298 08/09/18 16:07: Sodium 112 L*, Potassium 3.7, BUN 7, Creatinine 0.88, Glucose 128 H, Magnesium 1.6 L, Total Bilirubin 0.7, AST 76 H, ALT 44, Alkaline Phosphatase 101 Medications List Reviewed: Yes Assessment And Plan - Current Problems (Diagnosis) (1) Hyponatremia Current Visit: No Status: Acute Plan: Acute on chronic hyponatremia. Hyponatremia most likely secondary to alcoholism -initial sodium level of 112. Sodium level today at 121. Correction of 10 over the last 12 hr -nephrology has been consulted. Appreciated recommendations at this time -patient currently on hypertonic saline at 30 mL/hr. Will go ahead and stop the hypertonic saline switched to normal saline at 100ml/hr -caution with over correcting the sodium as it could cause him to have cerebral Edema -continue monitor patient closely. -BMP q.4 hr and urine sodium a q.4 hr as well (2) Acute metabolic encephalopathy Onset Date: 08/09/18 Current Visit: Yes Status: Acute Plan: Acute metabolic encephalopathy most likely secondary to hyponatremia. Status post fall as well -head CT negative for any acute abnormality other than scalp hematoma -brain MRI stroke protocol negative for any CVA as well -will continue monitor patient closely -will hold baclofen and panic at this time as patient does appear to be lethargic after taking them. -neuro checks q.4 hr due to hyponatremia -PTOT consulted (3) Status post fall Current Visit: Yes Status: Acute (4) Alcohol abuse Onset Date: 08/09/18 Current Visit: No Status: Acute Plan: Patient history of alcohol abuse with pancytopenia and electrolyte abnormality -started on thiamine and folic acid at this time -CIWA protocol in place -last alcohol yesterday (5) GERD (gastroesophageal reflux disease) Onset Date: 08/21/17 Current Visit: No Status: Chronic Plan: Protonix 40 daily Qualifiers: Esophagitis presence: without esophagitis Qualified Code(s): K21.9 - Gastro -esophageal reflux disease without esophagitis (6) CAD (coronary artery disease) of artery bypass graft Onset Date: 05/14/14 Current Visit: No Status: Chronic Plan: Will restart home medication at this time Qualifiers: [place] vs. transplanted heart: [place] heart Associated angina: with stable angina Qualified Code(s): I25.708 - Atherosclerosis of coronary artery bypass graft(s), unspecified, with other forms of angina pectoris (7) Hypertension Onset Date: 05/14/14 Current Visit: No Status: Chronic Plan: Stable at this time. Will continue home medication Qualifiers: Hypertension type: essential hypertension Qualified Code(s): I10 - Essential (primary) hypertension (8) Tobacco abuse Onset Date: 11/11/15 Current Visit: No Status: Chronic - Plan Continue monitor patient closely here in the ICU. Would change hypertonic saline to normal saline at this time. Will continue with neuro checks BMP and urine sodium every 4 hr. Nephrology has been consulted appreciated recommendations. Will keep the patient in the ICU for 24 hr of monitoring at this time. Discharge Plan: Home Plan to discharge in: Greater than 2 days - Code Status/Comfort Care Code Status Assessed: Yes Critical Care: Yes
[2018-08-10 11:45] LABS: Absolute Lymphocytes (CBC) 0.7 K/uL (0.7-4.9); Absolute Monocytes 0.9 K/uL (0.1-1.3); Absolute Neutrophil 6.8 K/uL (1.8-8.0); Eosinophils % 0.3 % (0-4.4); Hematocrit 31.2 % (39.6-49.0); Lymphocytes % 8.7 % (15.3-44.8); MPV 7.7 fL (7.6-11.3); Monocytes % 10.1 % (3.3-12.3); RBC Red Blood Cell Count 3.26 M/uL (4.33-5.43)
[2018-08-10 11:57] LABS: BUN Blood Urea Nitrogen 6 mg/dL (7-18); Bicarbonate 23 mmol/L (21-32); Glucose Level 87 mg/dL (74-106); Potassium 3.7 mmol/L (3.5-5.1); Sodium Level 123 mmol/L (136-145)
[2018-08-10 12:17] LABS: Barbiturates NEGATIVE (NEGATIVE); Benzodiazepines POSITIVE (NEGATIVE); Cocaine NEGATIVE (NEGATIVE); METHAMPHETAM NEGATIVE (NEGATIVE); Methadone NEGATIVE (NEGATIVE); Opiates POSITIVE (NEGATIVE); Phencyclidine NEGATIVE (NEGATIVE); THC Cannibis NEGATIVE (NEGATIVE)
[2018-08-10] MEDS: THIAMINE 200 MG/2 ML INJ IVP SCH (12:22)
[2018-08-10] MEDS: FOLIC ACID 5 MG/ML VIAL IVP SCH (12:29)
[2018-08-10 15:35] LABS: BUN Blood Urea Nitrogen 6 mg/dL (7-18); Bicarbonate 22 mmol/L (21-32); Glucose Level 86 mg/dL (74-106); Potassium 3.5 mmol/L (3.5-5.1); Sodium Level 124 mmol/L (136-145)
[2018-08-10 15:36] LABS: Magnesium 1.8 mg/dL (1.8-2.4); Phosphorus 2.5 mg/dL (2.5-4.9)
[2018-08-10 19:48] LABS: BUN Blood Urea Nitrogen 6 mg/dL (7-18); Bicarbonate 22 mmol/L (21-32); Glucose Level 132 mg/dL (74-106); Potassium 3.5 mmol/L (3.5-5.1); Sodium Level 124 mmol/L (136-145)
[2018-08-10] MEDS: NA CHLORIDE 0.9% 1,000 ML IV SCH (21:01)
[2018-08-10 22:16] LABS: BUN Blood Urea Nitrogen 7 mg/dL (7-18); Bicarbonate 23 mmol/L (21-32); Glucose Level 99 mg/dL (74-106); Potassium 4.2 mmol/L (3.5-5.1); Sodium Level 124 mmol/L (136-145)
[2018-08-10] MEDS: ACETAMINOPHEN 500 MG TAB PO PRN (23:56)
[2018-08-11] MEDS: PANTOPRAZOLE 40MG TABLET PO SCH (05:45)
[2018-08-11] MEDS: ACETAMINOPHEN 500 MG TAB PO PRN (05:45)
[2018-08-11 05:46] LABS: BUN Blood Urea Nitrogen 7 mg/dL (7-18); Bicarbonate 23 mmol/L (21-32); Glucose Level 79 mg/dL (74-106); Potassium 3.8 mmol/L (3.5-5.1); Sodium Level 125 mmol/L (136-145)
[2018-08-11] MEDS: NA CHLORIDE 0.9% 1,000 ML IV SCH ×2 (05:46→19:00)
[2018-08-11 05:48] LABS: Magnesium 1.8 mg/dL (1.8-2.4); Phosphorus 2.4 mg/dL (2.5-4.9)
[2018-08-11] MEDS ORDERED: POTASSIUM PHOS IN 0.9 % NACL 15 MMOL/250 ML BAG IV ONE ×2 (06:02→20:51)
[2018-08-11] MEDS ORDERED: MAGNESIUM SULFATE 1 gm IVPB 1 GM/100 ML BAG IV ONE (06:30)
[2018-08-11] MEDS: FOLIC ACID 5 MG/ML VIAL IVP SCH (08:21)
[2018-08-11] MEDS: THIAMINE 200 MG/2 ML INJ IVP SCH (08:21)
[2018-08-11 10:47] LABS: BUN Blood Urea Nitrogen 6 mg/dL (7-18); Bicarbonate 24 mmol/L (21-32); Glucose Level 106 mg/dL (74-106); Potassium 3.7 mmol/L (3.5-5.1); Sodium Level 123 mmol/L (136-145)
--- NOTE | 2018-08-11 11:48 | P.PN ---
Subjective Date of Service: 08/11/18 Chief Complaint: s/p fall/syncope/parietal lac/hyponatremia/AMS/history Patient seen and examined chart reviewed. Chart Reviewed. Case DW with Nurse and Pt at bedside. Pt much more alert today. Denies Fever, chills and N/v Review of Systems 10-point ROS is otherwise unremarkable Physical Examination - Vital Signs Temperature: 97.8 F Blood Pressure: 157/63 Pulse: 45 Respirations: 20 Pulse Ox (%): 99 - Physical Exam General: Alert, In no apparent distress Respiratory: Clear to auscultation bilaterally, Normal air movement Cardiovascular: Regular rate/rhythm, Normal S1 S2 Gastrointestinal: Normal bowel sounds, No tenderness Musculoskeletal: No tenderness Integumentary: No rashes Neurological: Normal speech, Normal tone, Normal affect Lymphatics: No axilla or inguinal lymphadenopathy - Studies Medications List Reviewed: Yes Assessment And Plan - Current Problems (Diagnosis) (1) Hyponatremia Current Visit: No Status: Acute Plan: Acute on chronic hyponatremia. Hyponatremia most likely secondary to alcoholism -initial sodium level of 112. Sodium level today at 123. -nephrology has been consulted. Appreciated recommendations at this time -On NS at 40 ml/hr per nephrology reccs -caution with over correcting the sodium as it could cause him to have cerebral Edema -continue monitor patient closely. (2) Acute metabolic encephalopathy Onset Date: 08/09/18 Current Visit: Yes Status: Acute Plan: Acute metabolic encephalopathy most likely secondary to hyponatremia. Status post fall as well -head CT negative for any acute abnormality other than scalp hematoma -brain MRI stroke protocol negative for any CVA as well -will continue monitor patient closely -neuro checks q.4 hr due to hyponatremia -PTOT consulted (3) Status post fall Current Visit: Yes Status: Acute Plan: PT/OT consulted. (4) Alcohol abuse Onset Date: 08/09/18 Current Visit: No Status: Acute Plan: Patient history of alcohol abuse with pancytopenia and electrolyte abnormality -started on thiamine and folic acid at this time -CIWA protocol in place -last alcohol yesterday (5) GERD (gastroesophageal reflux disease) Onset Date: 08/21/17 Current Visit: No Status: Chronic Plan: Protonix 40 daily Qualifiers: Esophagitis presence: without esophagitis Qualified Code(s): K21.9 - Gastro -esophageal reflux disease without esophagitis (6) Hypertension Onset Date: 05/14/14 Current Visit: No Status: Chronic Plan: Currently Hypotensive. -Hold home medication Qualifiers: Hypertension type: essential hypertension Qualified Code(s): I10 - Essential (primary) hypertension (7) CAD (coronary artery disease) of artery bypass graft Onset Date: 05/14/14 Current Visit: No Status: Chronic Qualifiers: [place] vs. transplanted heart: [place] heart Associated angina: with stable angina Qualified Code(s): I25.708 - Atherosclerosis of coronary artery bypass graft(s), unspecified, with other forms of angina pectoris (8) Tobacco abuse Onset Date: 11/11/15 Current Visit: No Status: Chronic - Plan Continue monitor patient closely here in the ICU. Continue with normal saline at this time. Will continue with neuro checks. Nephrology has been consulted appreciated recommendations. Will keep the patient in the ICU for 24 hr of monitoring at this time.
[2018-08-11 14:11] LABS: BUN Blood Urea Nitrogen 6 mg/dL (7-18); Bicarbonate 23 mmol/L (21-32); Glucose Level 110 mg/dL (74-106); Potassium 3.8 mmol/L (3.5-5.1); Sodium Level 126 mmol/L (136-145)
[2018-08-11 15:33] LABS: Urine Appearance CLEAR; Urine Bilirubin NEGATIVE (NEG); Urine Blood NEGATIVE (NEG); Urine Color YELLOW; Urine Glucose TRACE (NEG); Urine Protein NEGATIVE (NEG); Urine Specific Gravity 1.015 (1.005-1.030); Urine Urobilinogen >=8.0 mg/dL (0.2-1.0)
[2018-08-11 15:35] LABS: Urine Microscopic Reflex ORDER UMIC
[2018-08-11 15:58] LABS: Urine Bacteria 20-50 /HPF (NONE SEEN); Urine Culture Reflex Order NOT NEEDED; Urine RBC <5 /HPF (NONE SEEN)
[2018-08-11 20:12] LABS: BUN Blood Urea Nitrogen 6 mg/dL (7-18); Bicarbonate 22 mmol/L (21-32); Glucose Level 117 mg/dL (74-106); Magnesium 1.9 mg/dL (1.8-2.4); Phosphorus 2.2 mg/dL (2.5-4.9); Potassium 3.9 mmol/L (3.5-5.1); Sodium Level 125 mmol/L (136-145)
[2018-08-11] MEDS: HYDROCODONE/APAP 7.5/325 MG TAB PO SCH (20:56)
[2018-08-12] MEDS: ACETAMINOPHEN 500 MG TAB PO PRN ×2 (00:22→05:14)
--- NOTE | 2018-08-12 01:08 | CON ---
Date of Consultation: 08/11/2018 Chief Complaint: Hyponatremia, hypo-osmolar, status post fall, altered mental status. The patient w as admitted to ICU. After he sustained fall at home, he was confused and had some jittery body movem ents. He denies syncope, although he does not have a good recollection of the events. The patient h ad fallen earlier before this admission and suffered scalp laceration in the parietal area. He was c onfused when he came to the emergency room. It was recommended by the Police Department for him to g o to the emergency room. The patient was lethargic in the emergency room. He was found to have rafael re hyponatremia. The patient has history of alcohol abuse. Also, he was taking hydrochlorothiazide, which likely was a culprit for hyponatremia. MRI was ordered and it was mostly negative for acute c hanges. The patient's initial sodium was 112 and the patient received treatment with 3% of sodium ch loride as started by primary team. Nephrology consultation was obtained and I was notified yesterday in the evening that patient is in ICU, is treated for hyponatremia. At that time, the patient was a lready on normal saline and 3% sodium chloride was stopped. Sodium level improved over less than 24 hours from 112 to 124. The patient primarily was complaining of some generalized weakness, but he be came agitated and was treated with Xanax by primary team. The patient was treated for delirium in vi ew of the history of alcohol abuse. Review of Systems: The patient is more alert today, although he cannot provide review of systems. He is not a good hist orian. Past Medical History: Coronary artery disease, bypass, hernia repair, and partial removal of colon, hypertension, myocardial infarction, diverticulitis, bradycardia, GERD, insomnia, alcoholism, vertigo , partial removal of colon, triple bypass, back surgery with fusion. Family History: Heart disease, hypertension, seizure. Social History: Denies illicit drugs. The patient is active smoker, has history of alcoholism. Physical Examination: Vital Signs: Blood pressure 104/69, respiratory rate 19, SpO2 100%, heart rate 57. EYES: Anicteric sclerae. EOMI. Ears, Nose, Mouth and Throat: Oral mucosa moist. No pallor. Neck: Supple. No JVD. No bruits. Lungs: Clear to auscultation bilaterally. No wheezing. No rhonchi. Heart: S1, S2. No pericardial friction rub. Abdomen: Soft, benign, nontender. No rebound. No guarding. Extremities: Chronic dermatitis. No edema, no clubbing, no cyanosis. Neurological: Moving extremities. Cranial nerves intact. Psychiatric: The patient is lethargic and confused. The patient has hematoma and laceration in the parietal area and the left forehead. Laboratory Data: Sodium 112, potassium 3.7, BUN 7, creatinine 0.88, glucose 128, magnesium 1.6, tota l bilirubin 0.7, AP 101. Impression And Plan: 1.Acute hyponatremia, severe. The patient underwent treatment with 3% of sodium chloride and sodium level improved to 124 range. Continue normal saline. The patient at this point is not on p.o. flui d restriction. Recommend close monitoring of electrolytes. 2.Hypomagnesemia. Continue magnesium replacement. Monitor phosphorus. Adjust treatment. 3.Acute metabolic encephalopathy, secondary to multiple causes. The patient likely has also deliriu m. Continue treatment accordingly. 4.Bradycardia per Cardiology. The patient has a history of coronary artery disease, rule out myocar dial infraction. 5.Acute hyponatremia. The patient is not a candidate of HCTZ due to the fact that there is a high r isk of recurrent severe hyponatremia. HCTZ was stopped. The patient cannot take nonsteroidal anti-i nflammatory medication. 6.Status post fall, further workup per primary team. CHANTELLE/ADELA Voice ID: [id number] Report ID: [id number]
[2018-08-12] MEDS ORDERED: HYDRALAZINE HCL 20 MG/ML VIAL IV ONE (05:10)
[2018-08-12] MEDS: NA CHLORIDE 0.9% 1,000 ML IV SCH ×3 (05:15→18:04)
[2018-08-12 05:28] LABS: BUN Blood Urea Nitrogen 5 mg/dL (7-18); Bicarbonate 23 mmol/L (21-32); Glucose Level 93 mg/dL (74-106); Magnesium 1.6 mg/dL (1.8-2.4); Phosphorus 3.5 mg/dL (2.5-4.9); Potassium 3.9 mmol/L (3.5-5.1); Sodium Level 127 mmol/L (136-145)
[2018-08-12] MEDS: PANTOPRAZOLE 40MG TABLET PO SCH (05:49)
[2018-08-12] MEDS ORDERED: MAGNESIUM SULFATE 1 gm IVPB 1 GM/100 ML BAG IV ONE (06:03)
[2018-08-12] MEDS ORDERED: POTASSIUM 25 MEQ EFFERV TAB PO ONE (08:00)
[2018-08-12] MEDS: FLUOXETINE 20 MG CAP PO SCH (08:15)
[2018-08-12] MEDS: THIAMINE HCL 100 MG TABLET PO SCH (08:16)
[2018-08-12] MEDS: FOLIC ACID 1 MG TABLET PO SCH (08:16)
[2018-08-12] MEDS: HYDROCODONE/APAP 7.5/325 MG TAB PO SCH ×3 (08:16→20:37)
--- NOTE | 2018-08-12 12:33 | P.PN ---
Subjective Date of Service: 08/12/18 Primary Care Provider: Dr. Chow; Pain management-Dr. Chacko Chief Complaint: s/p fall/syncope/parietal lac/hyponatremia/AMS/history Subjective: Doing well (Patient alert an oriented. No complaints noted. Patient has chronic pain, wishes to restart medication. Along with medication for anxiety.) Physical Examination - Vital Signs Temperature: 97.4 F Blood Pressure: 147/67 Pulse: 52 Respirations: 24 Pulse Ox (%): 100 - Physical Exam General: Alert, In no apparent distress, Oriented x3, Cooperative HEENT: Atraumatic Neck: Supple Respiratory: Clear to auscultation bilaterally, Normal air movement Cardiovascular: Normal pulses, Regular rate/rhythm Gastrointestinal: Normal bowel sounds, Soft and benign, Non-distended, No tenderness, No masses, No rebound, No guarding Musculoskeletal: No erythema, No tenderness, No warmth Integumentary: No tenderness/swelling, No erythema, No warmth, No cyanosis Neurological: Normal speech, Normal strength at 5/5 x4 extr, Normal tone, Normal affect - Studies Medications List Reviewed: Yes Assessment & Plan Discharge Plan: Home Plan to discharge in: 48 Hours Physician Review Additional Text: Impression: Acute on chronic severe hyponatremia likely secondary to medication- hydrochlorothiazide and alcohol Acute metabolic encephalopathy related to hyponatremia Acute on chronic alcohol abuse GERD Hypertension CAD, chronic Tobacco abuse Anxiety with depression Chronic pain Plan: Acute on chronic severe hyponatremia likely secondary to medication- hydrochlorothiazide and alcohol: Notes reviewed. Patient significantly improved. Patient appears to be at his baseline mentation. Patient continues with IV normal saline. Will transfer patient to the floor. Encourage ambulation. Patient desires to go home at discharge. Will continue monitor electrolytes closely. Continue with DVT prophylaxis-Lovenox. IV medication change to oral. Nephrology consulted to further address. Nephrology recommends no further use of hydrochlorothiazide. Recommend no use of nonsteroidal anti-inflammatories in the future.Recheck lab in the morning. Anticipate discharge in the next 1-2 days. Will need to continue to assess ambulation. Will consult social worker delinquency prevention for discharge planning. Acute metabolic encephalopathy related to hyponatremia: This has improved with IV fluids. Patient now on normal saline. Continue normal saline. Will monitor and address appropriately. Nephrology consulted to further address. Nephrology recommends no further use of hydrochlorothiazide. Recommend no use of nonsteroidal anti-inflammatories in the future. Acute on chronic alcohol abuse: Will change medication to oral. Continue with thiamine and folic acid. Encouraged cessation. Will provide education. GERD: Continue with medication. Hypertension: Will monitor closely. Will start Norvasc 2.5 mg. Hydrochlorothiazide has been discontinued. Patient not a candidate to use hydrochlorothiazide in the future due to hyponatremia. CAD, chronic: Continue with medication. Tobacco abuse: Patient may require nicotine patch. Will continue cessation education. Anxiety with depression: Will provide Xanax and restart antidepressant medication. Chronic pain: Patient seen by pain management as an outpatient. Will continue with his current outpatient medication-hydrocodone. Recommended no use of nonsteroidal anti-inflammatories in the future due to severe hyponatremia. Time Spent Managing Pts Care (In Minutes): 55
[2018-08-12] MEDS: AMLODIPINE 2.5 MG TAB PO SCH (13:33)
[2018-08-12 14:47] LABS: BUN Blood Urea Nitrogen 5 mg/dL (7-18); Bicarbonate 23 mmol/L (21-32); Glucose Level 100 mg/dL (74-106); Potassium 4.5 mmol/L (3.5-5.1); Sodium Level 128 mmol/L (136-145)
--- NOTE | 2018-08-12 15:08 | PN ---
Date of Progress Note: 08/12/2018 Chief Complaint: Hyponitremia, hypophosphatemia, hypomagnesemia. The patient was found to have rafael re hyponatremia, hypo-osmolar. He presented to the hospital after he sustained fall and developed co nfusion. The patient was found to have severe hyponatremia in the emergency room. He was evaluated for calf laceration and he was complaining of tremor, although he did not have a weakness seizure. T he patient remained confused during 24 hours of hospitalization. Currently, he has history of alcoho l abuse. He was found to have severe hyponatremia and was treated with 3% of sodium chloride as star darwin by primary team. The patient is improving gradually with hyponatremia. Today he is feeling bett er. IV fluids were changed from 3% to normal saline after first 24-hours therapy. Over last 24 hours, sodium level remain stable range from 123-127. Review of Systems: Denies fever, chills. Physical Examination: Lungs: Clear to auscultation bilaterally. Heart: S1, S2. Abdomen: Soft, benign. Extremities: N o edema. On arrival to the hospital, sodium level was 112, potassium 3.7, BUN 7, creatinine 0.88, gl ucose 128, magnesium 1.6. Impression And Plan: 1.Acute hyponatremia, severe. The patient underwent treatment with 3% sodium chloride and sodium [place] improved to 124 over 24-hours treatment. The patient will continue normal saline and the patient will advance with p.o. protein intake as well as he may be a candidate for sodium chloride tablets. Fluid restriction were started with 1000 mL of free fluid per day. 2.Hypomagnesemia. Continue magnesium replacement. Monitor phosphorus. Adjust treatment for hypoph osphatemia. 3.Acute metabolic encephalopathy secondary to multiple causes. The patient likely has delirium. Co ntinue treatment accordingly. 4.Bradycardia per Cardiology. The patient has history of coronary artery disease and workup was sta rted to rule out acute myocardial infarction. 5.Hyponatremia, acute. The patient is not a candidate for HCTZ due to the fact that there is a high risk of recurrent severe hyponatremia. HCTZ was stopped. The patient cannot take anti-inflammatory medication. EB/MODL Voice ID: [id number] Report ID: [id number]
[2018-08-12] MEDS: ENOXAPARIN 30 MG/0.3 ML SQ SCH (16:59)
[2018-08-12] MEDS: NICOTINE 21 MG/PAT TD SCH (16:59)
[2018-08-12] MEDS: MAGNESIUM OXIDE 400 MG TAB PO SCH (20:37)
[2018-08-12 21:13] LABS: BUN Blood Urea Nitrogen 5 mg/dL (7-18); Bicarbonate 23 mmol/L (21-32); Glucose Level 118 mg/dL (74-106); Sodium Level 129 mmol/L (136-145)
[2018-08-12] MEDS: ALPRAZOLAM 1 MG TABLET PO PRN (22:48)
[2018-08-13] MEDS: PANTOPRAZOLE 40MG TABLET PO SCH (05:46)
[2018-08-13] MEDS: NA CHLORIDE 0.9% 1,000 ML IV SCH ×2 (05:46→09:47)
[2018-08-13 06:34] LABS: BUN Blood Urea Nitrogen 5 mg/dL (7-18); Bicarbonate 24 mmol/L (21-32); Glucose Level 87 mg/dL (74-106); Magnesium 1.6 mg/dL (1.8-2.4); Phosphorus 3.7 mg/dL (2.5-4.9); Potassium 3.9 mmol/L (3.5-5.1); Sodium Level 131 mmol/L (136-145)
[2018-08-13] MEDS ORDERED: MAGNESIUM SULFATE 1 gm IVPB 1 GM/100 ML BAG IV ONE (07:00)
[2018-08-13] MEDS: AMLODIPINE 2.5 MG TAB PO SCH (09:00)
[2018-08-13] MEDS ORDERED: POTASSIUM CL SA 10 MEQ TAB PO ONE (09:00)
--- NOTE | 2018-08-13 09:09 | P.PN ---
Subjective Date of Service: 08/13/18 Primary Care Provider: Dr. Chow; Pain management-Dr. Chacko Chief Complaint: s/p fall/syncope/parietal lac/hyponatremia/AMS/history Subjective: Doing well (Patient has done well. Patient ambulating appropriately.) Physical Examination - Vital Signs Temperature: 97.9 F Blood Pressure: 179/81 Pulse: 52 Respirations: 20 Pulse Ox (%): 100 - Physical Exam General: Alert, In no apparent distress, Oriented x3, Cooperative HEENT: Atraumatic Neck: Supple Respiratory: Clear to auscultation bilaterally, Normal air movement Cardiovascular: Normal pulses, Regular rate/rhythm Gastrointestinal: Normal bowel sounds, Soft and benign, Non-distended, No tenderness, No masses, No rebound, No guarding Musculoskeletal: No erythema, No tenderness, No warmth Integumentary: No tenderness/swelling, No erythema, No warmth, No cyanosis Neurological: Normal speech, Normal strength at 5/5 x4 extr, Normal tone, Normal affect - Studies Medications List Reviewed: Yes Assessment & Plan Discharge Plan: Home Plan to discharge in: 24 Hours Physician Review Additional Text: Impression: Acute on chronic severe hyponatremia likely secondary to medication- hydrochlorothiazide and alcohol Acute metabolic encephalopathy related to hyponatremia Acute on chronic alcohol abuse GERD Hypertension CAD, chronic Tobacco abuse Anxiety with depression Chronic pain Plan: Acute on chronic severe hyponatremia likely secondary to medication- hydrochlorothiazide and alcohol: Patient has done well. Patient ambulating appropriately and tolerating diet. Sodium has significantly improved and appears to be at baseline. Patient remains on DVT prophylaxis-Lovenox. Medications have been adjusted. Will discuss with nephrology about possible discharge today. Nephrology recommends no further use of hydrochlorothiazide. Recommend no use of nonsteroidal anti-inflammatories in the future. Anticipate discharge as early as today or tomorrow pending nephrology evaluation. Acute metabolic encephalopathy related to hyponatremia: This has improved with IV fluids. Sodium within normal range. Will monitor and address appropriately. Nephrology consulted to further address. Nephrology recommends no further use of hydrochlorothiazide. Recommend no use of nonsteroidal anti- inflammatories in the future. Acute on chronic alcohol abuse: Patient tolerating diet at this time. Continue with thiamine and folic acid. Patient reports that he plans to quit alcohol. He reports that he has not drank alcohol in quite some time. GERD: Continue with medication. Hypertension: Blood pressure still elevated. Patient was started on Norvasc. Will adjust for better control. Hydrochlorothiazide has been discontinued. Patient not a candidate to use hydrochlorothiazide in the future due to hyponatremia. CAD, chronic: Continue with medication. Tobacco abuse: Will provide nicotine patch as needed. Will continue cessation education. Anxiety with depression: Continue with home medication Chronic pain: Patient seen by pain management as an outpatient. Will continue with his current outpatient medication-hydrocodone. Recommended no use of nonsteroidal anti-inflammatories in the future due to severe hyponatremia. Time Spent Managing Pts Care (In Minutes): 55
[2018-08-13] MEDS: FLUOXETINE 20 MG CAP PO SCH (09:24)
[2018-08-13] MEDS: NICOTINE 21 MG/PAT TD SCH (09:24)
[2018-08-13] MEDS: THIAMINE HCL 100 MG TABLET PO SCH (09:24)
[2018-08-13] MEDS: POTASS/SODIUM PHOSPHATE 1 PKT POWD.PACK PO SCH (09:24)
[2018-08-13] MEDS: FOLIC ACID 1 MG TABLET PO SCH (09:24)
[2018-08-13] MEDS: MAGNESIUM OXIDE 400 MG TAB PO SCH ×2 (09:25→20:41)
[2018-08-13] MEDS: HYDROCODONE/APAP 7.5/325 MG TAB PO SCH ×3 (09:26→20:41)
[2018-08-13] MEDS: AMLODIPINE 5 MG TAB PO SCH (09:43)
--- NOTE | 2018-08-13 13:31 | P.DS ---
Admission Date: 08/09/18 Discharge Date: 08/13/18 Primary Care Provider: Dr. Chow; Pain management-Dr. Chacko Disposition: ROUTINE DISCHARGE Discharge Condition: GOOD Reason for Admission: s/p fall/syncope/parietal lac/hyponatremia/AMS/history Consultations: Nephrology-Dr. Darby/Mikaela Procedures: CT scan: COMPARISON: C Spine Wo Con dated 11/12/2015 TECHNIQUE: Axial 5 mm thick images of the head were obtained. Axial 2 mm thick images of the cervical spine were obtained with sagittal and coronal reconstruction images generated and reviewed. All CT scans are performed using dose optimization technique as appropriate and may include automated exposure control or mA/KV adjustment according to patient size. FINDINGS: CT HEAD WITHOUT CONTRAST: No acute hemorrhage, hydrocephalus or extra-axial collection is identified.Moderate generalized brain atrophy is present with moderate periventricular and deep white matter chronic microvascular ischemic changes.No areas of brain edema or midline shift. The paranasal sinuses and mastoids are clear.The calvarium is intact. CT CERVICAL SPINE WITHOUT CONTRAST: No fracture or subluxation.Multilevel degenerative changes are present throughout the cervical spine. Anterior fusion is seen spanning C5-7.No prevertebral soft tissues swelling is identified. IMPRESSION: No acute intracranial or cervical spine findings. MRI Brain: COMPARISON: MRA Head Wo Cont dated 08/09/2018; Chest Single View dated 2018 TECHNIQUE: Multi-sequence, multiplanar MR imaging of the brain was performed with contrast. FINDINGS: No intracranial hemorrhage, hydrocephalus, or extra-axial fluid collection.Moderate confluent T2/FLAIR hyperintensity in the periventricular and deep white matter is present compatible with chronic microvascular ischemic changes. No edema or shift of midline structures. No intracranial mass. DWI is negative for acute CVA. The midline structures are normally formed. Mastoid air cells and paranasal sinuses are clear. Post-contrast images show no abnormal enhancement to suggest tumor or infection. IMPRESSION: Negative for acute CVA or other acute intracranial abnormality. No pathologic post-contrast enhancement suspected. MRA Brain: COMPARISON: Head Brain Wo Cont dated 05/30/2018 FINDINGS: 3D noncontrast [id number] MR angiography of the [place] was performed. No aneurysm, flow-limiting stenosis or vascular malformation is seen. Forward flow seen in codominant vertebral arteries. The visualized dural venous sinuses appear patent. IMPRESSION: No significant flow abnormality of the [place] is identified. MRA Neck: COMPARISON: No comparisons FINDINGS: Contrast enhance 2D [id number] MR angiography of the neck vessels was performed. Left aortic arch is noted with a normal great vessel origin branching pattern. Both subclavian arteries and common carotid arteries are widely patent. The right carotid bulb shows moderate carotid narrowing estimated at 50% based on NASCET criteria. No significant left-sided carotid stenosis. Antegrade flow seen in both vertebral arteries. IMPRESSION: Moderate narrowing of the right carotid bulb is suspected, estimated at 50% based on NASCET criteria. Medical Problem List: Acute on chronic severe hyponatremia likely secondary to medication- hydrochlorothiazide and alcohol Acute metabolic encephalopathy related to hyponatremia Acute on chronic alcohol abuse GERD Hypertension CAD, chronic Tobacco abuse Carotid arterial disease Anxiety with depression Chronic pain Brief History of Present Illness: 68-year-old male presented to the emergency room with altered mental status. Patient had fall earlier in the day and suffered a scalp laceration. Patient appeared confused in the emergency room. Patient was brought in by police. Patient with history of hypertension, GERD, depression, chronic pain and hypertension. Patient found to have severe hyponatremia with a sodium of 112. Patient on hydrochlorothiazide. Patient was admitted for treatment. Hospital Course: Patient presented with altered mental status found to have severe hyponatremia. Patient was admitted to ICU for treatment. Patient had been taking hydrochlorothiazide. Patient also has history of alcohol abuse with hypertension. Patient was managed in the ICU for the hyponatremia. Nephrology was consulted. Hydrochlorothiazide was discontinued. Patient received IV fluids with adjustment in sodium. Patient was eventually transferred from ICU to the floor with improved sodium. Patient now back to baseline mentation. Patient able to walk appropriately with physical therapy. Medications have been adjusted as per recommendation by nephrology. Nephrology recommends no further use of hydrochlorothiazide. Nephrology also recommends no use of nonsteroidal anti-inflammatories in the future. Patient to be discharge home. Recommend to discontinue alcohol. Alcohol cessation education provided. Recommend to follow up with PCP in 1 week to repeat lab-BMP. Recommend to follow up with nephrology in 1-2 weeks to follow up this hospitalization. Patient with acute on chronic alcohol abuse. Patient has done well without alcohol. Patient reports that he has not drank alcohol in quite some time. Recommended continue with alcohol cessation at discharge. Recommended continue with thiamine 100 mg daily and folic acid 1 mg daily. This can be further monitored by his PCP. Patient with GERD. Patient will continue with Protonix 40 mg daily. Patient with hypertension. Blood pressure elevated. Medication adjusted due to his hyponatremia. Patient no longer takes hydrochlorothiazide. This has been discontinued. Nephrology recommends no further use of hydrochlorothiazide at discharge. Losartan also discontinued. Blood pressure improved with Norvasc. At discharge he will continue with Norvasc 5 mg daily. Recommend to maintain blood pressures less 150/80. Further adjustment can be done by his PCP. Patient with CAD. At discharge patient will continue with aspirin 325 mg daily. Patient with depression with anxiety. At discharge patient will continue with his medication of Prozac 20 mg daily and Xanax 1 mg 3 times a day as needed for anxiety. Recommend follow up with his PCP to further address. Patient with chronic pain. Patient sees chronic pain management. Patient may continue with hydrocodone at discharge. Recommend to follow up with pain management to further monitor and address. Patient with underlying arterial disease. Patient will continue with aspirin daily. This can be further monitored by his PCP. Vital Signs/Physical Exam: Temp Pulse Resp BP Pulse Ox 97.4 F 65 20 134/59 L 98 08/13/18 12:00 08/13/18 12:00 08/13/18 12:00 08/13/18 12:08/13/18 12:00 General: Alert, In no apparent distress, Oriented x3, Cooperative HEENT: Atraumatic Neck: Supple Respiratory: Clear to auscultation bilaterally, Normal air movement Cardiovascular: Normal pulses, Regular rate/rhythm Gastrointestinal: Normal bowel sounds, Soft and benign, Non-distended, No tenderness, No masses, No rebound, No guarding Musculoskeletal: No erythema, No tenderness, No warmth Integumentary: No tenderness/swelling, No erythema, No warmth, No cyanosis Neurological: Normal speech, Normal strength at 5/5 x4 extr, Normal tone, Normal affect Laboratory Data at Discharge: WBC 8.4 K/uL (4.3-10.9) D 08/10/18 11:10 Hgb 11.1 g/dL (13.6-17.9) L 08/10/18 11:10 Hct 31.2 % (39.6-49.0) L 08/10/18 11:10 Plt Count 233 K/uL (152-406) D 08/10/18 11:10 PT 10.7 SECONDS (9.5-12.5) 08/09/18 16:07 INR 0.90 08/09/18 16:07 Sodium 131 mmol/L (136-145) L 08/13/18 05:50 Potassium 3.9 mmol/L (3.5-5.1) 08/13/18 05:50 BUN 5 mg/dL (7-18) L 08/13/18 05:50 Creatinine 0.64 mg/dL (0.55-1.3) 08/13/18 05:50 Glucose 87 mg/dL (74-106) 08/13/18 05:50 Phosphorus 3.7 mg/dL (2.5-4.9) 08/13/18 05:50 Magnesium 1.6 mg/dL (1.8-2.4) L 08/13/18 05:50 Total Bilirubin 0.7 mg/dL (0.2-1.0) 08/09/18 16:07 AST 76 U/L (15-37) H 08/09/18 16:07 ALT 44 U/L (12-78) 08/09/18 16:07 Alkaline Phosphatase 101 U/L (45-117) 08/09/18 16:07 Troponin I < 0.02 ng/mL (0.0-0.045) 08/10/18 11:10 Home Medications: Pantoprazole [Protonix Tab*] 40 mg PO DAILYAC #30 tab 08/22/17 Aspirin 1 tab PO DAILY 01/09/18 ALPRAZolam [Xanax*] 1 mg PO TID 08/10/18 Fluoxetine HCl [Prozac] 20 mg PO DAILY 08/10/18 Hydrocodone/Acetaminophen [Hydrocodone-Acetamin 7.5-325] 1 tab PO TID 08/10/18 Amlodipine [Norvasc*] 5 mg PO DAILY #30 tab 08/13/18 Folic Acid 1 mg PO DAILY #90 tablet 08/13/18 Nicotine [Nicoderm*] 21 mg TD DAILY #30 patch.td24 08/13/18 Thiamine HCl [Vitamin B-1*] 100 mg PO DAILY #90 tablet 08/13/18 New Medications: Amlodipine [Norvasc*] 5 mg PO DAILY #30 tab Folic Acid 1 mg PO DAILY #90 tablet Nicotine [Nicoderm*] 21 mg TD DAILY #30 patch.td24 Thiamine HCl [Vitamin B-1*] 100 mg PO DAILY #90 tablet Patient Discharge Instructions: 1. Recommend a follow up with PCP in 1 week. 2. Patient presented with altered mental status found to have severe hyponatremia. Patient was admitted to ICU for treatment. Patient had been taking hydrochlorothiazide. Patient also has history of alcohol abuse with hypertension. Patient was managed in the ICU for the hyponatremia. Nephrology was consulted. Hydrochlorothiazide was discontinued. Patient received IV fluids with adjustment in sodium. Patient was eventually transferred from ICU to the floor with improved sodium. Patient now back to baseline mentation. Patient able to walk appropriately with physical therapy. Medications have been adjusted as per recommendation by nephrology. Nephrology recommends no further use of hydrochlorothiazide. Nephrology also recommends no use of nonsteroidal anti-inflammatories in the future. Patient to be discharge home. Recommend to discontinue alcohol. Alcohol cessation education provided. Recommend to follow up with PCP in 1 week to repeat lab-BMP. Recommend to follow up with nephrology in 1-2 weeks to follow up this hospitalization. 3. Patient with acute on chronic alcohol abuse. Patient has done well without alcohol. Patient reports that he has not drank alcohol in quite some time. Recommended continue with alcohol cessation at discharge. Recommended continue with thiamine 100 mg daily and folic acid 1 mg daily. This can be further monitored by his PCP. 4. Patient with GERD. Patient will continue with Protonix 40 mg daily. 5. Patient with hypertension. Blood pressure elevated. Medication adjusted due to his hyponatremia. Patient no longer takes hydrochlorothiazide. This has been discontinued. Nephrology recommends no further use of hydrochlorothiazide at discharge. Losartan also discontinued. Blood pressure improved with Norvasc. At discharge he will continue with Norvasc 5 mg daily. Recommend to maintain blood pressures less 150/80. Further adjustment can be done by his PCP. 6. Patient with CAD. At discharge patient will continue with aspirin 325 mg daily. 7. Patient with depression with anxiety. At discharge patient will continue with his medication of Prozac 20 mg daily and Xanax 1 mg 3 times a day as needed for anxiety. Recommend follow up with his PCP to further address. Patient with chronic pain. Patient sees chronic pain management. Patient may continue with hydrocodone at discharge. Recommend to follow up with pain management to further monitor and address. 8. Patient with underlying arterial disease. Patient will continue with aspirin daily. This can be further monitored by his PCP. Diet: AHA Activity: Fall precautions Time spent managing pt's care (in minutes): 55
[2018-08-13] MEDS: ENOXAPARIN 30 MG/0.3 ML SQ SCH (16:32)
[2018-08-13] MEDS: ALPRAZOLAM 1 MG TABLET PO PRN (22:27)
--- NOTE | 2018-08-13 23:47 | PN ---
Date of Progress Note: 08/13/2018 Subjective: The patient was admitted with a hyponatremia, dehydration, potomania. The patient was s tarted on IV hydration. His sodium started trending up slowly. The patient is more awake, still fee ling weak. Physical Examination: Vital Signs: When I saw the patient today, blood pressure of 125/80, pulse of 88. Chest: Clear to auscultation. Heart: S1, S2. Systolic murmur. Abdomen: Soft, nontender. Extremities: No edema. Neuro: Alert, no focal. Laboratory Data: Sodium 131, potassium 3.8. WBC 8.4, H and H 11.1/31.2, platelets 233. Sodium 131, potassium 3.9, bicarb 24, BUN 5, creatinine 0.6, calcium 8.4, magnesium 1.6, phosphorus 3.7. Current Medications: The patient on its include nicotine, Lovenox, amlodipine 5 mg, Tylenol, folic a maria alejandra, Zofran, pantoprazole, IV fluid at 75 per hour, magnesium oxide. Assessment And Plan: 1.Hyponatremia secondary to depletional/beer potomania, recovery trending up. I am going to start d ecreasing IV fluid to 50. Plan to wean and DC. 2.Hypertension, controlled, optimal. Continue current treatment. 3.Hypomagnesemia. We will supplement. 4.Deconditioning. Continue PT/OT. IRMA/ADELA Voice ID: [id number] Report ID: [id number]
[2018-08-14] MEDS: NA CHLORIDE 0.9% 1,000 ML IV SCH (05:22)
[2018-08-14 05:37] LABS: BUN Blood Urea Nitrogen 8 mg/dL (7-18); Bicarbonate 24 mmol/L (21-32); Glucose Level 83 mg/dL (74-106); Magnesium 1.6 mg/dL (1.8-2.4); Sodium Level 131 mmol/L (136-145)
[2018-08-14] MEDS ORDERED: MAGNESIUM SULFATE 1 gm IVPB 1 GM/100 ML BAG IV ONE (06:15)
[2018-08-14 06:36] VITALS: BMI 19.6
[2018-08-14] MEDS: PANTOPRAZOLE 40MG TABLET PO SCH (06:41)
[2018-08-14 08:32] VITALS: BP 140/71; TEMP 97.5
[2018-08-14] MEDS: AMLODIPINE 5 MG TAB PO SCH (09:32)
[2018-08-14] MEDS: FOLIC ACID 1 MG TABLET PO SCH (09:32)
[2018-08-14] MEDS: HYDROCODONE/APAP 7.5/325 MG TAB PO SCH (09:32)
[2018-08-14] MEDS: POTASS/SODIUM PHOSPHATE 1 PKT POWD.PACK PO SCH (09:32)
[2018-08-14] MEDS: THIAMINE HCL 100 MG TABLET PO SCH (09:33)
[2018-08-14] MEDS: NICOTINE 21 MG/PAT TD SCH (09:33)
[2018-08-14] MEDS: MAGNESIUM OXIDE 400 MG TAB PO SCH (09:33)
[2018-08-14] MEDS: FLUOXETINE 20 MG CAP PO SCH (09:33)
[2018-08-14 09:41] VITALS: O2SAT 97
--- NOTE | 2018-08-15 20:03 | P.PN ---
Date of Service: 08/14/18 Date of Progress Note: 08/14/2018 Subjective: The patient was admitted with a hyponatremia, dehydration, potomania. The patient was started on IV hydration. His sodium started trending up slowly. The patient is more awake, still feeling weak. Physical Examination: Vital Signs: When I saw the patient today, blood pressure of 125/80, pulse of 88. Chest: Clear to auscultation. Heart: S1, S2. Systolic murmur. Abdomen: Soft, nontender. Extremities: No edema. Neuro: Alert, no focal. Laboratory Data: Sodium 131, potassium 3.8. WBC 8.4, H and H 11.1/31.2, platelets 233. Sodium 131, potassium 3.9, bicarb 24, BUN 5, creatinine 0.6, calcium 8.4, magnesium 1.6, phosphorus 3.7. Current Medications: The patient on its include nicotine, Lovenox, amlodipine 5 mg, Tylenol, folic acid, Zofran, pantoprazole, IV fluid at 75 per hour, magnesium oxide. Assessment And Plan: 1. Hyponatremia secondary to depletional/beer potomania, recovery trending up. d/c IV fluid ok for d/c planing . 2. Hypertension, controlled, optimal. Continue current treatment. 3. Hypomagnesemia. We will supplement. 4. Deconditioning. Continue PT/OT.
== END 2018-08-14 13:44 | disposition home or self-care (01) | DRG 640 ==
LOC: ER 14:42 → 3RD-ICU 21:56 → 4TH 08-12 08:50
PROVIDERS: ADMIT Hospitalist; ATTEND Hospitalist
DX: E87.1 Hypo-osmolality and hyponatremia (principal); G93.41 Metabolic encephalopathy; F10.10 Alcohol abuse, uncomplicated; K21.9 Gastro-esophageal reflux disease without esophagitis; I10 Essential (primary) hypertension; I25.10 Atherosclerotic heart disease of native coronary artery without angina pectoris; F17.210 Nicotine dependence, cigarettes, uncomplicated; I77.89 Other specified disorders of arteries and arterioles; F41.8 Other specified anxiety disorders; G89.29 Other chronic pain; E83.42 Hypomagnesemia; R00.1 Bradycardia, unspecified; Z95.1 Presence of aortocoronary bypass graft; S01.81XA Laceration without foreign body of other part of head, initial encounter; W18.30XA Fall on same level, unspecified, initial encounter; Y92.009 Unspecified place in unspecified non-institutional (private) residence as the place of occurrence of the external cause
CPT/HCPCS: 36415; 70450; 70544; 70549; 70553; 71045; 72125; 80048; 80076; 80307; 80320; 81003; 81015; 82435; 82533; 82570; 82962; 83735; 83930; 83935; 84100; 84132; 84300; 84443; 84484; 85025; 85610; 87086; 87088; 93005; 97116; 97162; 97530; 99285; A9577; J0360; J1650; J3411; J3475; J7030

== ENCOUNTER 2018-12-30 21:16 | Emergency (ER) | payer OTHER ==
[2018-12-30 23:06] LABS: Protime INR 0.86
[2018-12-30 23:08] LABS: Absolute Lymphocytes (CBC) 1.3 K/uL (0.7-4.9); Basophils % 0.9 % (0-1.3); Hematocrit 29.6 % (39.6-49.0); Lymphocytes % 13.5 % (15.3-44.8); MPV 7.4 fL (7.6-11.3); RBC Red Blood Cell Count 3.37 M/uL (4.33-5.43)
[2018-12-30 23:32] LABS: BUN Blood Urea Nitrogen 7 mg/dL (7-18); Bicarbonate 20 mmol/L (21-32); Glucose Level 68 mg/dL (74-106); Potassium 3.7 mmol/L (3.5-5.1); Sodium Level 129 mmol/L (136-145)
[2018-12-30 23:33] LABS: ALT/SGPT 17 U/L (12-78); AST/SGOT 21 U/L (15-37); Alkaline Phosphatase 55 U/L (45-117); Bilirubin Direct 0.1 mg/dL (0-0.2); Bilirubin Total 0.2 mg/dL (0.2-1.0); Magnesium 1.3 mg/dL (1.8-2.4); NT PRO-BNP 330 pg/mL (<125); Protein, Total 6.4 g/dL (6.4-8.2); Troponin (Emerg Dept Use Only) < 0.02 ng/mL (0.0-0.045)
--- NOTE | 2018-12-30 23:41 | RAD REPORT ---
EXAM DESCRIPTION: RAD - Chest Single View - 12/30/2018 10:56 pm CLINICAL HISTORY: syncope Chest pain. COMPARISON: <Comparisons> FINDINGS: Portable technique limits examination quality. The lungs are grossly clear. The heart is mildly prominent in size with changes of a prior CABG. No d isplaced fractures.Hardware plate is present cervical spine. IMPRESSION: No acute intrathoracic process suspected.
[2018-12-30] MEDS ORDERED: NA CHLORIDE 0.9% 1,000 ML ONE (23:44)
[2018-12-30] MEDS ORDERED: THIAMINE 200 MG/2 ML INJ ONE (23:44)
[2018-12-30] MEDS ORDERED: Magnesium Sulfate 2gm IVPB 2 G/50 ML BAG IV ONE (23:46)
[2018-12-30] MEDS ORDERED: MULTIVITAMINS 10 ML VIAL (INJ) IV ONE (23:46)
[2018-12-30] MEDS ORDERED: FOLIC ACID 5 MG/ML VIAL ONE (23:46)
--- NOTE | 2018-12-31 02:32 | EDPHYS ---
Physician Documentation [facility] Name: Bravo Lockett Age: 68 yrs Sex: Male : 1950 Arrival Date: 12/30/2018 Time: 21:30 Bed 6 Private MD: ED Physician Estela Loaiza HPI: 12/30 22:09 This 68 yrs old Male presents to ER via EMS with complaints of Probable jr8 Seizure. 22:10 The patient has experienced syncope, became unresponsive. Onset: The symptoms/episode jr8 began/occurred just prior to arrival. Context: occurred at home. Pt reports he was getting his hair cut by his roommate and passed out. EMS initial BP was 70s systolic, pt reports feeling like he is going to pass out when he stands up. Historical: - Allergies: 21:41 NKDA; lp1 - Home Meds: 21:41 fluoxetine 20 mg Oral cap 1 cap once daily [Active]; alprazolam 1 mg Oral TbDL 3 times lp1 per day [Active]; amlodipine 5 mg tab 1 tab once daily [Active]; [place] 7.5-325 mg Oral tab 1 tab three times a day [Active]; folic acid 1 mg Oral tab 1 tab once daily [Active]; - PMHx: 21:41 CAD; COPD; Diverticulitis; GERD; Hypertension; Hypomagnesemia; Myocardial infarction; lp1 Vertigo; - PSHx: 21:41 CABG; lp1 - Immunization history:: Adult Immunizations up to date. - Social history:: Smoking status: Patient uses tobacco products, smokes two packs cigarettes per day. Patient uses alcohol, on a daily basis. claims drinking about a 6 pack/day. - Ebola Screening: : No symptoms or risks identified at this time. ROS: 22:13 Constitutional: Negative for fever, chills, and weight loss, Eyes: Negative for injury, jr8 pain, redness, and discharge, ENT: Negative for injury, pain, and discharge, Neck: Negative for injury, pain, and swelling, Cardiovascular: Negative for chest pain, palpitations, and edema, Respiratory: Negative for shortness of breath, cough, wheezing, and pleuritic chest pain, Abdomen/GI: Negative for abdominal pain, nausea, vomiting, diarrhea, and constipation, Back: Negative for injury and pain, MS/Extremity: Negative for injury and deformity, Skin: Negative for injury, rash, and discoloration. 22:13 Neuro: Negative for altered mental status, dizziness, hearing loss, numbness, tremor. Exam: 22:13 Constitutional: This is a well developed, well nourished patient who is awake, alert, jr8 and in no acute distress. Head/Face: Normocephalic, atraumatic. Eyes: Pupils equal round and reactive to light, extra-ocular motions intact. Lids and lashes normal. Conjunctiva and sclera are non-icteric and not injected. Cornea within normal limits. Periorbital areas with no swelling, redness, or edema. ENT: Nares patent. No nasal discharge, no septal abnormalities noted. Tympanic membranes are normal and external auditory canals are clear. Oropharynx with no redness, swelling, or masses, exudates, or evidence of obstruction, uvula midline. Mucous membranes moist. Neck: Trachea midline, no thyromegaly or masses palpated, and no cervical lymphadenopathy. Supple, full range of motion without nuchal rigidity, or vertebral point tenderness. No Meningismus. Chest/axilla: Normal chest wall appearance and motion. Nontender with no deformity. No lesions are appreciated. Cardiovascular: Regular rate and rhythm with a normal S1 and S2. No gallops, murmurs, or rubs. Normal PMI, no JVD. No pulse deficits. Respiratory: Lungs have equal breath sounds bilaterally, clear to auscultation No rales, rhonchi or wheezes noted. No increased work of breathing, no retractions or nasal flaring. Abdomen/GI: Soft, non-tender, with normal bowel sounds. No distension or tympany. No guarding or rebound. No evidence of tenderness throughout. MS/ Extremity: Pulses equal, no cyanosis. Neurovascular intact. Full, normal range of motion. Neuro: Awake and alert, GCS 15, oriented to person, place, time, and situation. Cranial nerves II-XII grossly intact. Motor strength 5/5 in all extremities. Sensory grossly intact. Cerebellar exam normal. Normal gait. Vital Signs: 21:20 BP 110 / 86; Pulse 48; Resp 16; Temp 97.6(O); Pulse Ox 100% on R/A; Weight 63.5 kg; lp1 Height 5 ft. 10 in. (177.80 cm); Pain 0/10; 21:45 BP 120 / 71; Pulse 47; Resp 19; Pulse Ox 99% on R/A; lp1 22:13 BP 135 / 78 Supine; Pulse 63; lp1 22:13 BP 122 / 75 Sitting; Pulse 67; lp1 22:13 BP 108 / 74 Standing; Pulse 80; lp1 22:30 BP 138 / 74; Pulse 52; Resp 16; Pulse Ox 100% on R/A; lp1 23:00 BP 111 / 61; Pulse 50; Resp 16; Pulse Ox 99% on R/A; lp1 23:30 BP 130 / 67; Pulse 48; Resp 17; Pulse Ox 99% on R/A; lp1 12/31 00:00 BP 133 / 76; Pulse 48; Resp 15; Pulse Ox 100% on R/A; lp1 01:00 BP 132 / 74; Pulse 51; Resp 16; Pulse Ox 99% on R/A; lp1 02:00 BP 113 / 66; Pulse 51; Resp 19; Pulse Ox 97% on R/A; lp1 02:49 BP 146 / 75; Pulse 63; Resp 19; Temp 98(O); Pulse Ox 100% on R/A; Pain 0/10; lp1 03:15 BP 153 / 78; Pulse 72; Resp 20; Pulse Ox 98% on R/A; lp1 12/30 21:20 Body Mass Index 20.09 (63.50 kg, 177.80 cm) lp1 12/30 22:13 Patient denies any dizziness, states "In a few minutes, I may start to get dizzy" lp1 Chaz Coma Score: 21:20 Eye Response: spontaneous(4). Verbal Response: oriented(5). Motor Response: obeys lp1 commands(6). Total: 15. 21:30 Eye Response: spontaneous(4). Verbal Response: oriented(5). Motor Response: obeys lp1 commands(6). Total: 15. MDM: 21:39 Patient medically screened. jr8 12/31 02:28 Data reviewed: vital signs, nurses notes, EKG, radiologic studies, and as a result, I jr8 will discharge patient. Data interpreted: Pulse oximetry: on room air is 100 %. Interpretation: normal. Counseling: I had a detailed discussion with the patient and/or guardian regarding: the historical points, exam findings, and any diagnostic results supporting the discharge/admit diagnosis, lab results, radiology results, the need for outpatient follow up, a family practitioner. ED course: Pt feeling well, back at baseline. Orthostatics negative, pt not dizzy when changing positions. Replaced electrolytes. Pt denies chest pain or any other acute changes. 12/30 22:09 Order name: Basic Metabolic Panel; Complete Time: 23:34 8 12/30 22:09 Order name: CBC with Diff; Complete Time: 23:30 8 12/30 22:09 Order name: LFT's; Complete Time: 23:34 8 12/30 22:09 Order name: Magnesium; Complete Time: 23:34 12/30 22:09 Order name: NT PRO-BNP; Complete Time: 23:34 12/30 22:09 Order name: PT-INR; Complete Time: 23:30 12/30 22:09 Order name: Troponin (emerg Dept Use Only); Complete Time: 23:34 12/30 22:09 Order name: XRAY Chest (1 view); Complete Time: 23:52 12/30 22:09 Order name: EKG; Complete Time: 22:10 12/30 22:09 Order name: Cardiac monitoring; Complete Time: 22:14 12/30 22:09 Order name: EKG - Nurse/Tech; Complete Time: 22:14 12/30 22:09 Order name: IV Saline Lock; Complete Time: 22:14 12/30 22:09 Order name: Labs collected and sent; Complete Time: 22:26 12/30 22:09 Order name: O2 Per Protocol; Complete Time: :12/30 22:09 Order name: O2 Sat Monitoring; Complete Time: 22:14 12/30 22:09 Order name: Orthostatics; Complete Time: 22: Administered Medications: 12/30 23:50 Drug: Banana Bag - (NS 0.9% 1000 ml, foLIC Acid 1 mg, Thiamine 100 mg, Multivitamin 1 lp1 amp) Route: IV; Rate: calculated rate; Site: right hand; 12/31 03:30 Follow up: IV Status: Completed infusion; IV Intake: 900ml lp1 00:04 Drug: Magnesium Sulfate 2 grams Route: IVPB; Infused Over: 2 hrs; Site: right hand; lp1 01:55 Follow up: IV Status: Completed infusion; IV Intake: 50ml lp1 Disposition: 12/31/18 02:30 Discharged to Home. Impression: Syncope and collapse. - Condition is Stable. - Discharge Instructions: Alcohol Use Disorder, Near-Syncope, Syncope, Tilt Table Test, Alcohol Abuse and Nutrition. - Medication Reconciliation Form, Thank You Letter form. - Follow up: Private Physician; When: 2 - 3 days; Reason: Recheck today's complaints, Re-evaluation by your physician. - Problem is new. - Symptoms have improved. Signatures: Dispatcher [employer] EDMai Qiu RN RN lp1 Steven Briseno PA PA jr8 Corrections: (The following items were deleted from the chart) 03:40 02:30 12/31/2018 02:30 Discharged to Home. Impression: Syncope and collapse. Condition lp1 is Stable. Forms are Medication Reconciliation Form, Thank You Letter, Antibiotic Education, Prescription Opioid Use. Follow up: Private Physician; When: 2 - 3 days; Reason: Recheck today's complaints, Re-evaluation by your physician. Problem is new. Symptoms have improved. jr8
--- NOTE | 2018-12-31 02:32 | ER ---
Nurse's Notes [facility] Name: Bravo Lockett Age: 68 yrs Sex: Male : 1950 Arrival Date: 12/30/2018 Time: 21:30 Bed 6 Private MD: Diagnosis: Syncope and collapse Presentation: 12/30 21:15 Presenting complaint: EMS states: Called for patient having seizure; On arrival of EMS, lp1 patient post-ictal, 70 systolic BP, witnessed syncopal episode with EMS; Patient A/O x4 on arrival to ED; + ETOH. 21:15 Transition of care: patient was not received from another setting of care. Onset of lp1 symptoms was December 30, 2018 at 20:30. Risk Assessment: Do you want to hurt yourself or someone else? Patient reports no desire to harm self or others. Initial Sepsis Screen: Does the patient meet any 2 criteria? No. Patient's initial sepsis screen is negative. Does the patient have a suspected source of infection? No. Patient's initial sepsis screen is negative. Care prior to arrival: Medication(s) given: Normal saline infusion, 1000 mL, IV initiated. 20 GA, in the right hand, Glucose check: 94 Oxygen administered. via nasal cannula. 21:15 Method Of Arrival: EMS: [facility] lp1 21:15 Acuity: AURELIO 2 lp1 Historical: - Allergies: 21:41 NKDA; lp1 - Home Meds: 21:41 fluoxetine 20 mg Oral cap 1 cap once daily [Active]; alprazolam 1 mg Oral TbDL 3 times lp1 per day [Active]; amlodipine 5 mg tab 1 tab once daily [Active]; [place] 7.5-325 mg Oral tab 1 tab three times a day [Active]; folic acid 1 mg Oral tab 1 tab once daily [Active]; - PMHx: 21:41 CAD; COPD; Diverticulitis; GERD; Hypertension; Hypomagnesemia; Myocardial infarction; lp1 Vertigo; - PSHx: 21:41 CABG; lp1 - Immunization history:: Adult Immunizations up to date. - Social history:: Smoking status: Patient uses tobacco products, smokes two packs cigarettes per day. Patient uses alcohol, on a daily basis. claims drinking about a 6 pack/day. - Ebola Screening: : No symptoms or risks identified at this time. Screenin:42 Abuse screen: Denies threats or abuse. Denies injuries from another. Nutritional lp1 screening: No deficits noted. Tuberculosis screening: No symptoms or risk factors identified. Fall Risk Total Torres Fall Scale indicates High Risk Score (45 or more points). Fall prevention measures have been instituted. Side Rails Up X 2 Frequent Obs/Assessments Occuring Family Present and informed to notify staff if the need to leave the bedside As available patient and family educated on Fall Prevention Program and Strategies. Assessment: 21:30 General: Appears in no apparent distress. Behavior is calm, cooperative, Smells of lp1 alcohol. Pain: Denies pain. Neuro: Level of Consciousness is awake, alert, obeys commands, Oriented to person, place, situation. Cardiovascular: Capillary refill < 3 seconds in bilateral fingers toes Patient's skin is warm and dry. Respiratory: Airway is patent Respiratory effort is even, unlabored, Respiratory pattern is regular, Breath sounds are clear bilaterally. GI: Abdomen is flat. : No signs and/or symptoms were reported regarding the genitourinary system. EENT: No signs and/or symptoms were reported regarding the EENT system. Derm: Skin is intact, Skin is dry, Skin is pale. Musculoskeletal: No deficits noted. 21:35 Reassessment: Friends at bedside visiting with patient. lp1 22:45 Reassessment: Patient appears in no apparent distress at this time. Patient and/or lp1 family updated on plan of care and expected duration. Pain level reassessed. Patient resting, eyes closed, respirations unlabored; easily aroused. 12/31 00:05 Reassessment: Patient appears in no apparent distress at this time. No changes from lp1 previously documented assessment. Patient and/or family updated on plan of care and expected duration. Pain level reassessed. 01:30 Reassessment: Patient appears in no apparent distress at this time. Patient and/or lp1 family updated on plan of care and expected duration. Pain level reassessed. Patient resting, eyes closed, respirations unlabored. 02:43 Reassessment: Patient appears in no apparent distress at this time. Patient is alert, lp1 oriented x 3, equal unlabored respirations, skin warm/dry/pink. Patient states feeling better. 02:45 Reassessment: Attempted to call patient's son, Deo, for ride home. lp1 03:00 Reassessment: Attempted to call patient's roommate Glen at [phone] for ride home. lp1 03:38 Reassessment: Son at bedside to take patient home for discharge. lp1 Vital Signs: 12/30 21:20 BP 110 / 86; Pulse 48; Resp 16; Temp 97.6(O); Pulse Ox 100% on R/A; Weight 63.5 kg; lp1 Height 5 ft. 10 in. (177.80 cm); Pain 0/10; 21:45 BP 120 / 71; Pulse 47; Resp 19; Pulse Ox 99% on R/A; lp1 22:13 BP 135 / 78 Supine; Pulse 63; lp1 22:13 BP 122 / 75 Sitting; Pulse 67; lp1 22:13 BP 108 / 74 Standing; Pulse 80; lp1 22:30 BP 138 / 74; Pulse 52; Resp 16; Pulse Ox 100% on R/A; lp1 23:00 BP 111 / 61; Pulse 50; Resp 16; Pulse Ox 99% on R/A; lp1 23:30 BP 130 / 67; Pulse 48; Resp 17; Pulse Ox 99% on R/A; lp1 12/31 00:00 BP 133 / 76; Pulse 48; Resp 15; Pulse Ox 100% on R/A; lp1 01:00 BP 132 / 74; Pulse 51; Resp 16; Pulse Ox 99% on R/A; lp1 02:00 BP 113 / 66; Pulse 51; Resp 19; Pulse Ox 97% on R/A; lp1 02:49 BP 146 / 75; Pulse 63; Resp 19; Temp 98(O); Pulse Ox 100% on R/A; Pain 0/10; lp1 03:15 BP 153 / 78; Pulse 72; Resp 20; Pulse Ox 98% on R/A; lp1 12/30 21:20 Body Mass Index 20.09 (63.50 kg, 177.80 cm) lp1 12/30 22:13 Patient denies any dizziness, states "In a few minutes, I may start to get dizzy" lp1 Chaz Coma Score: 21:20 Eye Response: spontaneous(4). Verbal Response: oriented(5). Motor Response: obeys lp1 commands(6). Total: 15. 21:30 Eye Response: spontaneous(4). Verbal Response: oriented(5). Motor Response: obeys lp1 commands(6). Total: 15. ED Course: 21:15 Arm band placed on left wrist. lp1 21:30 Patient arrived in ED. fc 21:30 Patient has correct armband on for positive identification. Bed in low position. Call lp1 light in reach. Side rails up X2. Seizure precautions initiated. nuclear plant technical advisor on. Pulse ox on. NIBP on. 21:30 Maintain EMS IV. Dressing intact. Site clean \\T\\ dry. Gauge \\T\\ site: 20g to R hand. lp 1 21:30 Patient maintains SpO2 saturation greater than 95% on room air. lp1 21:36 Mai Keen, NAM is Primary Nurse. lp1 21:39 Triage completed. lp1 21:39 Steven Briseno PA is PHCP. jr8 21:39 Estela Loaiza MD is Attending Physician. jr8 22:26 Initial lab(s) drawn, by me, sent to lab. lp1 22:56 XRAY Chest (1 view) In Process Unspecified. EDMS 23:33 Notified Nurse Practitioner and/or Physician Tank Truck Engine Mechanic of a critical lab result(s), mag fc of 1.3. 12/31 00:05 No provider procedures requiring assistance completed. lp1 03:20 IV discontinued, No redness/swelling at site. Pressure dressing applied. lp1 Administered Medications: 12/30 23:50 Drug: Banana Bag - (NS 0.9% 1000 ml, foLIC Acid 1 mg, Thiamine 100 mg, Multivitamin 1 lp1 amp) Route: IV; Rate: calculated rate; Site: right hand; 12/31 03:30 Follow up: IV Status: Completed infusion; IV Intake: 900ml lp1 00:04 Drug: Magnesium Sulfate 2 grams Route: IVPB; Infused Over: 2 hrs; Site: right hand; lp1 01:55 Follow up: IV Status: Completed infusion; IV Intake: 50ml lp1 Intake: 01:55 IV: 50ml; Total: 50ml. lp1 03:30 IV: 900ml; Total: 950ml. lp1 Output: 01:52 Urine: 800ml (Voided); Total: 800ml. lp1 Outcome: 02:30 Discharge ordered by MD. jr8 02:44 Condition: good lp1 03:25 Discharged to home via wheelchair, with family. lp1 03:25 Discharge instructions given to patient, family, Instructed on discharge instructions, follow up and referral plans. Demonstrated understanding of instructions, follow-up care. 03:30 Patient left the ED. lp1 Signatures: Dispatcher [employer] EDMS Isabelle Almonte RN RN Mai Keen RN RN lp1 Steven Briseno PA PA jr8 Corrections: (The following items were deleted from the chart) 12/30 21:42 21:15 Care prior to arrival: IV initiated. 20 GA, in the right hand, Glucose check: 94 lp1 Oxygen administered. via nasal cannula, lp1 12/31 03:39 03:00 Reassessment: Attempted to call patient's roommate Glen at [phone] for ride lp1 home lp1 03:41 03:40 Patient left the ED. lp1 lp1
[2018-12-31 04:35] VITALS: TEMP 98
[2018-12-31 04:37] VITALS: BP 153/78; O2SAT 98
--- NOTE | 2018-12-31 05:31 | EKG ---
Test Date: 2018-12-30 Test Time: 21:31:06 [employer] Supervisor: ADRIAN MEASUREMENT RESULTS: Intervals: Rate: 49 [place]: 148 QRSD: 88 QT: 474 QTc: 428 [place]: P: 48 [place]: 148 QRS: 47 T: 46 INTERPRETIVE STATEMENTS: Sinus bradycardia with premature atrial complexes Otherwise normal ECG Compared to ECG 08/09/2018 15:37:31 Atrial premature complex(es) now present Sinus rhythm no longer present Atrial abnormality no longer present Electronically Signed On 12-31-18 05:30:29 CDT by Lars Ayala
== END 2018-12-31 03:40 | disposition home or self-care (01) ==
LOC: ER 21:16
DX: R55 Syncope and collapse (principal); F17.210 Nicotine dependence, cigarettes, uncomplicated; I10 Essential (primary) hypertension; J44.9 Chronic obstructive pulmonary disease, unspecified; I25.2 Old myocardial infarction; Z95.1 Presence of aortocoronary bypass graft
CPT/HCPCS: 96365; 93005; 85025; 80048; 36415; 83735; 85610; 80076; 84484; 83880; 71045; 99285; 96366; J3411; J3475; J7030

== ENCOUNTER 2019-01-22 19:15 | Emergency (ER) | payer OTHER ==
[2019-01-22] MEDS ORDERED: NA CHLORIDE 0.9% 2,000 ML ONE (19:40)
[2019-01-22] MEDS ORDERED: THIAMINE 200 MG/2 ML INJ ONE (19:40)
[2019-01-22] MEDS ORDERED: MULTIVITAMINS 10 ML VIAL (INJ) IV ONE (19:41)
[2019-01-22] MEDS ORDERED: FOLIC ACID 5 MG/ML VIAL ONE (19:42)
[2019-01-22 19:47] LABS: Absolute Lymphocytes (CBC) 1.6 K/uL (0.7-4.9); Basophils % 0.9 % (0-1.3); Hematocrit 30.2 % (39.6-49.0); Lymphocytes % 18.5 % (15.3-44.8); MPV 6.6 fL (7.6-11.3); RBC Red Blood Cell Count 3.35 M/uL (4.33-5.43)
[2019-01-22 19:59] LABS: BUN Blood Urea Nitrogen 9 mg/dL (7-18); Bicarbonate 18 mmol/L (21-32); Glucose Level 76 mg/dL (74-106); Potassium 3.2 mmol/L (3.5-5.1); Sodium Level 129 mmol/L (136-145)
[2019-01-22 20:01] LABS: Protime INR 0.87
--- NOTE | 2019-01-22 20:11 | RAD REPORT ---
EXAM DESCRIPTION: CT - Head C Spine Mpr Wo Con - 01/22/2019 7:51 pm CLINICAL HISTORY: Head and neck injury status post fall. Head and neck pain COMPARISON: July 2018 TECHNIQUE: Computed axial tomography of the head and cervical spine was obtained. Sagittal and coronal reconstruction was performed. All CT scans are performed using dose optimization technique as appropriate and may include automated exposure control or mA/KV adjustment according to patient size. FINDINGS: An intracranial bleed is not seen. The ventricles are normal in caliber. An extra-axial fl uid collection is not noted.Fluid within the visualized sinuses and mastoids is not seen Anterior fusion involves distal cervical spine. Mild posterior subluxation C3 on C4 and mild anterior subluxation C4 on C5 unchanged from the prior exam A cervical fracture is not visualized. No dislocation is noted. Spondylosis involves the cervical spi ne IMPRESSION: No acute intracranial abnormality is seen. A cervical fracture is not visualized. If the patient continues to have symptoms to suggest intracra nial /spinal cord pathology then MRI would be recommended
--- NOTE | 2019-01-22 20:16 | RAD REPORT ---
EXAM DESCRIPTION: RAD - Humerus Right - 01/22/2019 8:03 pm CLINICAL HISTORY: Right arm pain status post fall FINDINGS: Osteoporosis No fracture is seen
--- NOTE | 2019-01-22 22:44 | ER ---
Nurse's Notes [facility] Name: Bravo Lockett Age: 68 yrs Sex: Male : 1950 Arrival Date: 01/22/2019 Time: 19:16 Bed 28 Private MD: Diagnosis: Superficial injury of head;Alcohol abuse with intoxication;Dehydration Presentation: 01/22 19:05 Presenting complaint: EMS states: patient had a fall and passed out while going [place] [facility] [place] he sustained injury to his forehead and pain on his right arm. he also had a drink today. BGL was 92 mg/dl. 19:05 Transition of care: patient was not received from another setting of care. Onset of mg2 symptoms was January 22, 2019 at 18:30. Risk Assessment: Do you want to hurt yourself or someone else? Patient reports no desire to harm self or others. Initial Sepsis Screen: Does the patient meet any 2 criteria? No. Patient's initial sepsis screen is negative. Does the patient have a suspected source of infection? No. Patient's initial sepsis screen is negative. Care prior to arrival: None. 19:05 Method Of Arrival: EMS: [place] [id number] 19:05 Acuity: AURELIO 3 mg2 Historical: - Allergies: 19:27 NKDA; mg2 - Home Meds: 19:27 alprazolam 1 mg Oral TbDL 3 times per day [Active]; amlodipine 5 mg tab 1 tab once mg2 daily [Active]; folic acid 1 mg Oral tab 1 tab once daily [Active]; fluoxetine 20 mg Oral cap 1 cap once daily [Active]; [place] 7.5-325 mg Oral tab 1 tab three times a day [Active]; - PMHx: 19:27 CAD; COPD; Diverticulitis; GERD; Hypertension; Hypomagnesemia; Myocardial infarction; mg2 Vertigo; - Immunization history:: Flu vaccine is not up to date. - Social history:: Smoking status: Patient uses tobacco products, smokes one pack cigarettes per day. Patient uses alcohol, Patient/guardian denies using street drugs, IV drugs. - Family history:: not pertinent. - Ebola Screening: : No symptoms or risks identified at this time. - Hospitalizations: : No recent hospitalization is reported. Screenin:34 Abuse screen: Denies threats or abuse. Denies injuries from another. Nutritional mg2 screening: No deficits noted. Tuberculosis screening: No symptoms or risk factors identified. Fall Risk Fall in past 12 months (25 points). IV access (20 points). Assessment: 20:34 General: Appears in no apparent distress. comfortable, Behavior is calm, cooperative. mg2 Pain: Complains of pain in forehead and right shoulder. 20:50 Neuro: Level of Consciousness is awake, alert, obeys commands, Oriented to person, mg2 place, time, situation. Cardiovascular: Capillary refill < 3 seconds Patient's skin is warm and dry. Respiratory: Airway is patent Respiratory effort is even, unlabored, Respiratory pattern is regular, symmetrical. GI: No signs and/or symptoms were reported involving the gastrointestinal system. : No signs and/or symptoms were reported regarding the genitourinary system. EENT: No signs and/or symptoms were reported regarding the EENT system. Derm: Skin is pink, warm \T\ dry. normal, Wound noted forehead. Musculoskeletal: Circulation, motion, and sensation intact. Capillary refill < 3 seconds. 22:40 Reassessment: patient sleeping right now. mg2 Vital Signs: 19:05 BP 126 / 64; Pulse 63; Resp 18; Temp 97.6; Pulse Ox 100% on R/A; Weight 68.04 kg; mg2 Height 5 ft. 10 in. (177.80 cm); 20:52 Pulse 68; Resp 18; Pulse Ox 100% on R/A; mg2 21:50 BP 122 / 80; Pulse 62; Resp 18; Pulse Ox 100% on R/A; mg2 22:41 BP 95 / 63; Pulse 61; Resp 18; Pulse Ox 100% on R/A; mg2 19:05 Body Mass Index 21.52 (68.04 kg, 177.80 cm) mg2 Chaz Coma Score: 19:19 Eye Response: spontaneous(4). Verbal Response: oriented(5). Motor Response: obeys rn commands(6). Total: 15. 21:53 Eye Response: spontaneous(4). Verbal Response: oriented(5). Motor Response: obeys rn commands(6). Total: 15. ED Course: 19:16 Patient arrived in ED. rn 19:16 Jamie Das MD is Attending Physician. rn 19:20 Dwight Lopez RN is Primary Nurse. mg2 19:24 Triage completed. mg2 19:27 Arm band placed on. mg2 19:30 Maintain EMS IV. Dressing intact. Good blood return noted. Site clean \T\ dry. Gauge \T\ mg 2 site: 18 \T\ RH. 19:52 CT Head C Spine In Process Unspecified. EDMS 20:03 XRAY Humerus RIGHT In Process Unspecified. EDMS 20:34 No provider procedures requiring assistance completed. mg2 20:52 Patient has correct armband on for positive identification. Pulse ox on. NIBP on. Door mg2 closed. Warm blanket given. 21:40 Assisted with urinal. mg2 23:05 IV discontinued, intact, bleeding controlled, No redness/swelling at site. Pressure mg2 dressing applied. Administered Medications: 20:20 Drug: NS 0.9% 1000 ml Route: IV; Rate: 1000 ml; Site: right hand; mg2 23:04 Follow up: Response: No adverse reaction; IV Status: Completed infusion; IV Intake: mg2 1000ml 20:20 Drug: Banana Bag - (NS 0.9% 1000 ml, foLIC Acid 1 mg, Thiamine 100 mg, Multivitamin 1 mg2 amp) Route: IV; Rate: calculated rate; Site: right hand; 23:04 Follow up: Response: No adverse reaction; IV Status: Order to discontinue infusion; IV mg2 Intake: 750ml Intake: 23:04 IV: 750ml; Total: 750ml. mg2 23:04 IV: 1000ml; Total: 1750ml. mg2 Output: 21:40 Urine: 500ml (Voided); Total: 500ml. mg2 Outcome: 22:44 Discharge ordered by . rn 23:05 Discharged to home via wheelchair. mg2 23:05 Condition: good 23:05 Discharge instructions given to patient, Instructed on discharge instructions, follow up and referral plans. Demonstrated understanding of instructions, follow-up care. 23:06 Patient left the ED. mg2 Signatures: Dispatcher [employer] EDMS Jamie Das MD MD rn Gardose, Michele, RN RN mg2 Corrections: (The following items were deleted from the chart) 19:25 19:25 BP 126 / 64; Pulse 63bpm; Resp 18bpm; Pulse Ox 100% RA; Temp 97.6F; 68.04 kg; mg2 Height 5 ft. 10 in.; BMI: 21.5; mg2 22:41 21:50 BP 95 / 63; Pulse 61bpm; Resp 18bpm; Pulse Ox 100% RA; mg2 mg2 23:06 23:05 Discharged to home via wheelchair, with family, mg2 mg2
--- NOTE | 2019-01-22 22:45 | EDPHYS ---
Physician Documentation [facility] Name: Bravo Lockett Age: 68 yrs Sex: Male : 1950 Arrival Date: 01/22/2019 Time: 19:16 Bed 28 Private MD: ED Physician Jamie Das HPI: 01/22 19:19 This 68 yrs old Male presents to ER via Unassigned with complaints of fall. rn 19:19 The patient or guardian reports injury. The complaints affect the forehead. Context of rn injury: The problem was sustained at home, resulted from a fall. Onset: The symptoms/episode began/occurred just prior to arrival. Severity of symptoms: At their worst the symptoms were mild, in the emergency department the symptoms are unchanged. The patient has experienced similar episodes in the past. Patient chronic alcoholic, friend heard him fall at home, patient states doesn't remember if passed out, reports feeling generalized weakness. No chest pain/sob/abd pain/vomiting/diarrhea preceding event. Reports drinking today. Has presented multiple times in past with hypotension/syncope. . Historical: - Allergies: 19:27 NKDA; mg2 - Home Meds: 19:27 alprazolam 1 mg Oral TbDL 3 times per day [Active]; amlodipine 5 mg tab 1 tab once mg2 daily [Active]; folic acid 1 mg Oral tab 1 tab once daily [Active]; fluoxetine 20 mg Oral cap 1 cap once daily [Active]; [place] 7.5-325 mg Oral tab 1 tab three times a day [Active]; - PMHx: 19:27 CAD; COPD; Diverticulitis; GERD; Hypertension; Hypomagnesemia; Myocardial infarction; mg2 Vertigo; - Immunization history:: Flu vaccine is not up to date. - Social history:: Smoking status: Patient uses tobacco products, smokes one pack cigarettes per day. Patient uses alcohol, Patient/guardian denies using street drugs, IV drugs. - Family history:: not pertinent. - Ebola Screening: : No symptoms or risks identified at this time. - Hospitalizations: : No recent hospitalization is reported. ROS: 19:19 Constitutional: Negative for fever, chills, and weight loss, Eyes: Negative for injury, rn pain, redness, and discharge, Neck: Negative for injury, pain, and swelling, Cardiovascular: Negative for chest pain, palpitations, and edema, Respiratory: Negative for shortness of breath, cough, wheezing, and pleuritic chest pain, Abdomen/GI: Negative for abdominal pain, nausea, vomiting, diarrhea, and constipation, MS/Extremity: Negative for injury and deformity, Skin: Negative for injury, rash, and discoloration, Neuro: Negative for headache, numbness, tingling, and seizure. Exam: 19:19 Constitutional: This is a well developed, well nourished patient who is awake, alert, rn and in no acute distress. Head/Face: Normocephalic, small skin tear upper mid forehead, no active bleeding, no depression Eyes: Pupils equal round and reactive to light, extra-ocular motions intact. Lids and lashes normal. Conjunctiva and sclera are non-icteric and not injected. Cornea within normal limits. Periorbital areas with no swelling, redness, or edema. ENT: dry MM, no oral trauma Neck: No midline tenderness Chest/axilla: Normal chest wall appearance and motion. Nontender with no deformity. No lesions are appreciated. Cardiovascular: Regular rate and rhythm. No pulse deficits. Respiratory: No increased work of breathing, no retractions or nasal flaring. Abdomen/GI: soft, non-tender MS/ Extremity: Pulses equal, no cyanosis. Neurovascular intact. Full, normal range of motion. Equal circumference. Neuro: Awake and alert, GCS 15, oriented to person, place, time, and situation. Cranial nerves II-XII grossly intact. Motor strength 5/5 in all extremities. Sensory grossly intact. 20:46 ECG was reviewed by the Attending Physician. rn Vital Signs: 19:05 BP 126 / 64; Pulse 63; Resp 18; Temp 97.6; Pulse Ox 100% on R/A; Weight 68.04 kg; mg2 Height 5 ft. 10 in. (177.80 cm); 20:52 Pulse 68; Resp 18; Pulse Ox 100% on R/A; mg2 21:50 BP 122 / 80; Pulse 62; Resp 18; Pulse Ox 100% on R/A; mg2 22:41 BP 95 / 63; Pulse 61; Resp 18; Pulse Ox 100% on R/A; mg2 19:05 Body Mass Index 21.52 (68.04 kg, 177.80 cm) mg2 Chaz Coma Score: 19:19 Eye Response: spontaneous(4). Verbal Response: oriented(5). Motor Response: obeys rn commands(6). Total: 15. 21:53 Eye Response: spontaneous(4). Verbal Response: oriented(5). Motor Response: obeys rn commands(6). Total: 15. MDM: 19:16 Patient medically screened. rn 21:53 Differential diagnosis: Contusion of Hematoma on Intracranial bleed- Concussion. Data rn reviewed: vital signs, nurses notes, lab test result(s), EKG, radiologic studies, CT scan, plain films, and as a result, I will continue to observe the patient. 22:42 Counseling: I had a detailed discussion with the patient and/or guardian regarding: the rn historical points, exam findings, and any diagnostic results supporting the discharge/admit diagnosis, lab results, radiology results, the need for outpatient follow up, to return to the emergency department if symptoms worsen or persist or if there are any questions or concerns that arise at home. Response to treatment: the patient's symptoms have markedly improved after treatment, and as a result, I will discharge patient. Special discussion: Based on the patient's history, exam and DX evaluation, there is no indication for emergent intervention or inpatient [place]. It is understood by the patient/guardian that if the SXs persist or worsen they need to return immediately for re-evaluation. I discussed with the patient/guardian in detail that at this point there is no indication for admission to the hospital. It is understood, however, that if the symptoms persist or worsen the patient needs to return immediately for re-evaluation. 01/22 19:18 Order name: CBC with Diff; Complete Time: : rn 01/22 19:18 Order name: Basic Metabolic Panel; Complete Time: : rn 01/22 19:18 Order name: CT Head C Spine; Complete Time: 20: rn 01/22 19:18 Order name: ETOH Level; Complete Time: 20: rn 01/22 19:18 Order name: PT-INR; Complete Time: 20: rn 01/22 19:18 Order name: Ptt, Activated; Complete Time: 20: rn 01/22 19:18 Order name: XRAY Humerus RIGHT; Complete Time: 20:26 rn 01/22 19:18 Order name: IV Start; Complete Time: 19:45 rn 01/22 19:18 Order name: EKG; Complete Time: 19: rn 01/22 19:18 Order name: EKG - Nurse/Tech; Complete Time: 20:20 rn EC:46 Rate is 64 beats/min. Rhythm is regular. QRS [place] is Normal. SD interval is normal. QRS rn interval is normal. QT interval is normal. No Q waves. T waves are Normal. No ST changes noted. Clinical impression: NSR w/ Non-specific ST/T Changes. Interpreted by me. Reviewed by me. Administered Medications: 20:20 Drug: NS 0.9% 1000 ml Route: IV; Rate: 1000 ml; Site: right hand; mg2 23:04 Follow up: Response: No adverse reaction; IV Status: Completed infusion; IV Intake: mg2 1000ml 20:20 Drug: Banana Bag - (NS 0.9% 1000 ml, foLIC Acid 1 mg, Thiamine 100 mg, Multivitamin 1 mg2 amp) Route: IV; Rate: calculated rate; Site: right hand; 23:04 Follow up: Response: No adverse reaction; IV Status: Order to discontinue infusion; IV mg2 Intake: 750ml Disposition: 01/22/19 22:44 Discharged to Home. Impression: Superficial injury of head, Alcohol abuse with intoxication, Dehydration. - Condition is Stable. - Discharge Instructions: Alcohol Intoxication, Dehydration, Adult, Head Injury, Adult. - Medication Reconciliation Form, Thank You Letter, Antibiotic Education, Prescription Opioid Use form. - Follow up: Private Physician; When: As needed; Reason: Recheck today's complaints, Re-evaluation by your physician. - Problem is new. - Symptoms have improved. Signatures: Dispatcher [employer] EDWI Jamie Das MD MD rn Gardose, Michele, RN RN mg2 Corrections: (The following items were deleted from the chart) 23:06 22:44 01/22/2019 22:44 Discharged to Home. Impression: Superficial injury of head; mg2 Alcohol abuse with intoxication; Dehydration. Condition is Stable. Forms are Medication Reconciliation Form, Thank You Letter, Antibiotic Education, Prescription Opioid Use. Follow up: Private Physician; When: As needed; Reason: Recheck today's complaints, Re-evaluation by your physician. Problem is new. Symptoms have improved. rn
[2019-01-22 23:23] VITALS: O2SAT 100
[2019-01-22 23:26] VITALS: BP 95/63
--- NOTE | 2019-01-23 17:25 | EKG ---
Test Date: 2019-01-22 Test Time: 20:17:32 Senior Net Programmer: MEASUREMENT RESULTS: Intervals: Rate: 64 IA: 178 QRSD: 90 QT: 428 QTc: 441 [place]: P: 75 IA: 178 QRS: 58 T: 73 INTERPRETIVE STATEMENTS: Normal sinus rhythm with sinus arrhythmia Possible Left atrial enlargement Nonspecific ST abnormality Abnormal ECG Compared to ECG 12/30/2018 21:31:06 ST (T wave) deviation now present Sinus bradycardia no longer present Atrial premature complex(es) no longer present Electronically Signed On 01-23-19 17:22:05 PAPER TESTER by Juan Nelson
--- OUTSIDE RECORDS SUMMARY | 2019-01-27 02:24 | XMS REPORT ---
:1950 Author Organization [facility] Address [address] [place] [address] Dr. Cisse [address] [place] [id number] Care Team Providers Name Role Phone Unavailable Unavailable Unavailable Problems This patient has no known problems. Allergies, Adverse Reactions, Alerts This patient has no known allergies or adverse reactions. Medications This patient has no known medications. Encounters Start End Encounter Admission Attending Care Care Encounter Date/Time Date/Time Type Type Clinicians Facility Department ID 2018-07-03 2018-07-03 Outpatient [facility] CAR [id number] 09:05:00 09:05:00
== END 2019-01-22 23:06 | disposition home or self-care (01) ==
LOC: ER 19:15
DX: F10.129 Alcohol abuse with intoxication, unspecified (principal); E86.0 Dehydration; W19.XXXA Unspecified fall, initial encounter; Y93.9 Activity, unspecified; Y92.009 Unspecified place in unspecified non-institutional (private) residence as the place of occurrence of the external cause; I10 Essential (primary) hypertension; J44.9 Chronic obstructive pulmonary disease, unspecified; I25.2 Old myocardial infarction; F17.210 Nicotine dependence, cigarettes, uncomplicated
CPT/HCPCS: 93005; 85025; 80048; 36415; 80320; 85610; 85730; 70450; 72125; 73060; J3411; J7030; 96365; 96366; 99284